=== PATIENT | female | born 1995 | race Caucasian/White ===

== ENCOUNTER 2016-11-15 08:46 | Emergency (ER) | payer MEDICAID ==
[2016-11-15 08:55] VITALS: BP 127/69
[2016-11-15] MEDS ORDERED: Sodium Chloride 0.9% 1,000 ML IV ONE (09:24)
[2016-11-15] MEDS ORDERED: Ondansetron 4 MG/2 ML SDV IVPUSH STA (09:24)
--- NOTE | 2016-11-15 09:27 | EDM.PDOC ---
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 Patient reports that since yesterday morning she has been having rolling in her upper epigastric region of the abdomen. She reports having nausea and vomiting several times. She is currently holding an emesis bag, but has not vomited in the ER at this time. Patient reports that she is currently about 12 weeks and due date of May 28 confirmed by an ultrasound about 3 weeks ago per patient. She reports that she saw Dr Dougherty for her initial OB appointment , but he would like her to be seen in [place] due to her high risk per patient. She reports she has not heard anything from [place] for an upcoming appointment. The patient is G3, P1, A1. She reports in March this year she had a Molar . The patient is alert and oriented. She does not appear to be in any acute distress. She denies stanton, dizziness, d, f, neck pain, neck stiffness, congestion, drainage, cp, soa, pelvic pain, vaginal bleeding, urinary changes, bowel changes. She reports nausea, vomiting, epigastric rolling pain. Onset Date: 11/14/16 Duration: Day(s): (1) Location: Reports: Abdomen Quality: Reports: Other (rolling) Severity: Mild Improves with: Reports: None Worsens with: Reports: None Associated Symptoms: Reports: Nausea/Vomiting. Denies: Confusion, Chest Pain, Cough, cough w sputum, Diaphoresis, Fever/Chills, Headaches, Loss of Appetite, Malaise, Rash, Seizure, Shortness of Breath, Syncope, Weakness Upper Abdomen Pain Score (Numeric/FACES): 8 - Related Data Allergies Allergy/AdvReac Type Severity Reaction Status Date / Time No Known Allergies Allergy Verified 11/15/16 08:55 Home Meds: Home Meds . 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: - Past Surgical History HEENT Surgical History: Reports: None Social & Family History - Family History Family Medical History: Noncontributory - Tobacco Use Smoking Status *Q: Current Every Day Smoker Years of Tobacco use: 10 Packs/Tins Daily: 0.5 Used Tobacco, but Quit: No Second Hand Smoke Exposure: No - Alcohol Use Days Per Week of Alcohol Use: 0 - Recreational Drug Use Recreational Drug Use: No - Living Situation & Occupation Living situation: Reports: Single, with Significant Other ED ROS GENERAL - Review of Systems Review Of Systems: See Below Constitutional: Reports: No Symptoms HEENT: Reports: No Symptoms Respiratory: Reports: No Symptoms Cardiovascular: Reports: No Symptoms Endocrine: Reports: No Symptoms GI/Abdominal: Reports: Abdominal Pain (epigastric), Nausea, Vomiting. Denies: Diarrhea : Reports: No Symptoms Musculoskeletal: Reports: No Symptoms Skin: Reports: No Symptoms Neurological: Reports: No Symptoms Psychiatric: Reports: No Symptoms Hematologic/Lymphatic: Reports: No Symptoms Immunologic: Reports: No Symptoms ED EXAM, GI/ABD - Physical Exam Exam: See Below Exam Limited By: No Limitations General Appearance: Alert, WD/WN, No Apparent Distress Eyes: Bilateral: Normal Appearance Ears: Normal External Exam, Normal Canal, Hearing Grossly Normal, Normal TMs Nose: Normal Inspection, Normal Mucosa, No Blood Throat/Mouth: Normal Inspection, Normal Lips, Normal Teeth, Normal Gums, Normal Oropharynx, Normal Voice, No Airway Compromise Head: Atraumatic, Normocephalic Neck: Normal Inspection, Supple, Non-Tender, Full Range of Motion Respiratory/Chest: No Respiratory Distress, Lungs Clear, Normal Breath Sounds, No Accessory Muscle Use Cardiovascular: Normal Peripheral Pulses, Regular Rate, Rhythm, No Edema, No Gallop, No JVD, No Murmur, No Rub GI/Abdominal Exam: Normal Bowel Sounds, Soft, No Organomegaly, No Distention, No Abnormal Bruit, No Mass, Pelvis Stable, Tender (mild epigastric. ) Back Exam: Normal Inspection, Full Range of Motion. No: CVA Tenderness (L), CVA Tenderness (R) Extremities: Normal Inspection, Normal Range of Motion, Non-Tender, No Pedal Edema, Normal Capillary Refill Neurological: Alert, Oriented, Normal Cognition, Normal Gait, No Motor/Sensory Deficits Psychiatric: Normal Affect, Normal Mood Skin Exam: Warm, Dry, Intact, Normal Color, No Rash Lymphatic: No Adenopathy Course - Vital Signs Last Recorded V/S: Last Vital Signs Temp 96.5 F 11/15/16 08:49 Pulse 83 11/15/16 08:49 Resp 18 11/15/16 08:49 BP 127/69 11/15/16 08:49 Pulse Ox 98 11/15/16 08:49 - Orders/Labs/Meds Orders: Active Orders 24 hr Category Date Time Status Heart Tones [RC] ASDIRECTED Care 11/15/16 09:25 Active Labs: Laboratory Tests 11/15/16 11/15/16 11/15/16 Range/Units 09:21 09:21 09:21 WBC (5.0-10.0) 10^3/uL RBC (4.00-5.50) 10^6/uL Hgb (12.0-16.0) g/dL Hct (37.0-47.0) % MCV (82.0-94.0) fL MCH (27.0-32.0) pg MCHC (33.0-38.0) g/dL RDW Coeff of Kimberlee (11.0-15.0) % Plt Count (150-400) 10^3/uL Neut % (Auto) (35-85) % Lymph % (Auto) (10-55) % [place] % (Auto) (0-16) % Eos % (Auto) (0-5) % Baso % (Auto) (0-3) % Neut # (Auto) (1.80-7.00) 10^3/uL Lymph # (Auto) (1.00-4.80) 10^3/uL [place] # (Auto) (0.00-0.80) 10^3/uL Eos # (Auto) (0.00-0.45) 10^3/uL Baso # (Auto) 10^3/uL Sodium 138 (136-145) mEq/L Potassium 3.9 (3.5-5.0) mEq/L Chloride 103 (98-106) mEq/L Carbon Dioxide 25 (21-32) mmol/L BUN 9 (7-18) mg/dL Creatinine 0.6 (0.6-1.0) mg/dL Est Cr Clr Drug Dosing 160.39 mL/min Estimated GFR (MDRD) > 60 (>=60) mL/min Glucose 89 (75-99) mg/dL Calcium 8.9 (8.4-10.1) mg/dL Total Bilirubin 0.8 (0.0-1.0) mg/dL AST 12 L (15-37) U/L ALT 16 (12-78) U/L Alkaline Phosphatase 57 (46-116) U/L Total Protein 7.2 (6.4-8.2) g/dL Albumin 3.5 (3.4-5.0) g/dL HCG, Qual Positive Urine Color (YELLOW) Urine Appearance (CLEAR) Urine pH (4.5-8.0) Ur Specific [place] (1.003-1.020) Urine Protein (NEGATIVE) mg/dL Urine Glucose (UA) (NEGATIVE) mg/dL Urine Ketones (NEGATIVE) mg/dL Urine Occult Blood (NEGATIVE) Urine Nitrite (NEGATIVE) Urine Bilirubin (NEGATIVE) Urine Urobilinogen (0.2-1.0) EU/dL Ur Leukocyte Esterase (NEGATIVE) Urine RBC (0-5) /HPF Urine WBC (0-5) /HPF Ur Squamous Epith Cells (NOT SEEN) /HPF Urine Bacteria (NOT SEEN) /HPF Urine Mucus (NOT SEEN) /HPF Urine Opiates Screen Negative (NEGATIVE) Ur Oxycodone Screen Negative (NEGATIVE) Urine Methadone Screen Negative (NEGATIVE) Ur Barbiturates Screen Negative (NEGATIVE) U Tricyclic Antidepress Negative (NEGATIVE) Ur Phencyclidine Scrn Negative (NEGATIVE) Ur Amphetamine Screen Negative (NEGATIVE) U Methamphetamines Scrn Negative (NEGATIVE) Urine MDMA Screen Negative (NEGATIVE) U Benzodiazepines Scrn Negative (NEGATIVE) Urine Cocaine Screen Negative (NEGATIVE) U Marijuana (THC) Screen Positive H (NEGATIVE) 11/15/16 11/15/16 Range/Units 09:30 10:25 WBC 10.9 H (5.0-10.0) 10^3/uL RBC 4.54 (4.00-5.50) 10^6/uL Hgb 14.2 (12.0-16.0) g/dL Hct 40.5 (37.0-47.0) % MCV 89.2 (82.0-94.0) fL MCH 31.3 (27.0-32.0) pg MCHC 35.1 (33.0-38.0) g/dL RDW Coeff of Kimberlee 13.0 (11.0-15.0) % Plt Count 220 (150-400) 10^3/uL Neut % (Auto) 84.1 (35-85) % Lymph % (Auto) 11.3 (10-55) % [place] % (Auto) 4.0 (0-16) % Eos % (Auto) 0.5 (0-5) % Baso % (Auto) 0.1 (0-3) % Neut # (Auto) 9.18 H (1.80-7.00) 10^3/uL Lymph # (Auto) 1.24 (1.00-4.80) 10^3/uL [place] # (Auto) 0.44 (0.00-0.80) 10^3/uL Eos # (Auto) 0.06 (0.00-0.45) 10^3/uL Baso # (Auto) 0.01 10^3/uL Sodium (136-145) mEq/L Potassium (3.5-5.0) mEq/L Chloride (98-106) mEq/L Carbon Dioxide (21-32) mmol/L BUN (7-18) mg/dL Creatinine (0.6-1.0) mg/dL Est Cr Clr Drug Dosing mL/min Estimated GFR (MDRD) (>=60) mL/min Glucose (75-99) mg/dL Calcium (8.4-10.1) mg/dL Total Bilirubin (0.0-1.0) mg/dL AST (15-37) U/L ALT (12-78) U/L Alkaline Phosphatase (46-116) U/L Total Protein (6.4-8.2) g/dL Albumin (3.4-5.0) g/dL HCG, Qual Urine Color Dark yellow (YELLOW) Urine Appearance Slightly cloudy (CLEAR) Urine pH 5.5 (4.5-8.0) Ur Specific [place] 1.029 H (1.003-1.020) Urine Protein 30 H (NEGATIVE) mg/dL Urine Glucose (UA) Negative (NEGATIVE) mg/dL Urine Ketones >=160 H (NEGATIVE) mg/dL Urine Occult Blood Trace-intact H (NEGATIVE) Urine Nitrite Negative (NEGATIVE) Urine Bilirubin Small H (NEGATIVE) Urine Urobilinogen 0.2 (0.2-1.0) EU/dL Ur Leukocyte Esterase Negative (NEGATIVE) Urine RBC 0-5 (0-5) /HPF Urine WBC 5-10 H (0-5) /HPF Ur Squamous Epith Cells Moderate H (NOT SEEN) /HPF Urine Bacteria Few H (NOT SEEN) /HPF Urine Mucus Moderate H (NOT SEEN) /HPF Urine Opiates Screen (NEGATIVE) Ur Oxycodone Screen (NEGATIVE) Urine Methadone Screen (NEGATIVE) Ur Barbiturates Screen (NEGATIVE) U Tricyclic Antidepress (NEGATIVE) Ur Phencyclidine Scrn (NEGATIVE) Ur Amphetamine Screen (NEGATIVE) U Methamphetamines Scrn (NEGATIVE) Urine MDMA Screen (NEGATIVE) U Benzodiazepines Scrn (NEGATIVE) Urine Cocaine Screen (NEGATIVE) U Marijuana (THC) Screen (NEGATIVE) Meds: Medications Discontinued Medications Generic Name Dose Route Start Last Admin Trade Name Freq PRN Reason Stop Dose Admin Sodium Chloride 1,000 mls @ 1,000 mls/hr 11/15/16 09:24 11/15/16 09:33 Normal Saline IV 11/15/16 10:23 1,000 mls/hr .BOLUS ONE Administration Ondansetron HCl 4 mg 11/15/16 09:24 11/15/16 09:33 Zofran IVPUSH 11/15/16 09:25 4 mg NOW STA Administration - Re-Assessments/Exams Free Text/Narrative Re-Assessment/Exam: 11/15/16 10:57 FHR 160 easily found by RN. 11/15/16 11:01 No leukocytes in urine to indicate infection. Dehydrated. Patient reports she feels much better. Her abdominal epigastric pain is resolved and her nausea is gone. Departure - Departure Time of Disposition: 10:55 Disposition: Home, Self-Care 01 Condition: Good Clinical Impression: Hyperemesis Qualifiers: Vomiting type: unspecified Nausea presence: with nausea Qualified Code(s): R11.2 - Nausea with vomiting, unspecified - Discharge Information Instructions: Hyperemesis Gravidarum, Eating Plan for Hyperemesis Gravidarum Referrals: Klaus Dougherty MD [Primary Care Provider] - Forms: ED Department Discharge Additional Instructions: Followup with your primary care provider Followup with your new RETAIL SALESMAN on FridayNovember 25 at 2:30pm at [facility] with Dr. Cabrera Return to the ER for worsening of condition or any emergent concerns Increase fluids Zofran 4mg 1 pill every 4 hours as needed for nausea/vomiting #28 no refill ODT. - My Orders Last 24 Hours: My Active Orders 11/15/16 09:25 Heart Tones [RC] ASDIRECTED - Assessment/Plan Last 24 Hours: My Active Orders 11/15/16 09:25 Heart Tones [RC] ASDIRECTED Plan: PLEASE SEE RN NOTE FOR PFSH.
[2016-11-15 10:02] LABS: CHLORIDE,CL 103 mEq/L (98-106); SODIUM,NA 138 mEq/L (136-145)
== END 2016-11-15 11:11 | disposition home or self-care (01) ==
LOC: CC.ED 08:46
DX: O21.0 Mild hyperemesis gravidarum (principal); O99.331 Smoking (tobacco) complicating pregnancy, first trimester; F17.210 Nicotine dependence, cigarettes, uncomplicated; O99.281 Endocrine, nutritional and metabolic diseases complicating pregnancy, first trimester; E86.0 Dehydration; Z3A.12 12 weeks gestation of pregnancy
CPT/HCPCS: 36415; 80053; 80305; 81001; 84703; 85025; 96361; 96374; 99283; J2405; J7030

== ENCOUNTER 2016-11-22 01:44 | Emergency (ER) | payer MEDICAID ==
[2016-11-22 01:48] VITALS: BP 134/76
--- NOTE | 2016-11-22 02:17 | EDM.PDOC ---
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 States did have intercourse tonight and since has had bleeding. Passed 2 large clots. One appeared to have mucous and/ or tissue. She denies any cramping. She had a D & C a few months ago and on her recheck appointment found out she was . She is now 13 1/2 weeks and other than nausea/vomiting, has been doing well. She denies feeling lightheaded. Onset: Today, Sudden Duration: Minutes: Associated Symptoms: Reports: Other. 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: - Past Surgical History HEENT Surgical History: Reports: None Social & Family History - Family History Family Medical History: Noncontributory - Tobacco Use Smoking Status *Q: Current Every Day Smoker Years of Tobacco use: 4 Packs/Tins Daily: 0.7 Used Tobacco, but Quit: No Second Hand Smoke Exposure: No - Caffeine Use Caffeine Use: Reports: Coffee - Alcohol Use Days Per Week of Alcohol Use: 0 - Recreational Drug Use Recreational Drug Use: No - Living Situation & Occupation Living situation: Reports: Single, with Significant Other ED ROS GENERAL - Review of Systems Review Of Systems: See Below Constitutional: Denies: Malaise, Weakness HEENT: Reports: No Symptoms Respiratory: Denies: Shortness of Breath, Wheezing, Cough Cardiovascular: Denies: Chest Pain, Edema, Lightheadedness Endocrine: Reports: Fatigue GI/Abdominal: Reports: No Symptoms : Reports: Other (vaginal bleeding) Musculoskeletal: Reports: No Symptoms Skin: Reports: No Symptoms Neurological: Reports: No Symptoms Psychiatric: Reports: No Symptoms ED EXAM - Physical Exam Exam: See Below Exam Limited By: No Limitations General Appearance: Alert, WD/WN, No Apparent Distress Ears: Normal External Exam, Normal TMs Nose: Normal Inspection, Normal Mucosa, No Blood Throat/Mouth: Normal Inspection, Normal Oropharynx Head: Normocephalic Neck: Normal Inspection, Supple, Non-Tender Respiratory/Chest: No Respiratory Distress, Lungs Clear, Normal Breath Sounds Cardiovascular: Regular Rate, Rhythm GI/Abdominal Exam: Normal Bowel Sounds (Female) Exam: Vaginal Bleeding, Other Heart Tones: Present Heart Tones per Min: 170 Back Exam: Normal Inspection Neurological: Alert, Oriented Course - Vital Signs Last Recorded V/S: Last Vital Signs Temp 98.2 F 11/22/16 01:46 Pulse 101 H 11/22/16 01:46 Resp 16 11/22/16 01:46 BP 134/76 11/22/16 01:46 Pulse Ox 99 11/22/16 01:46 Departure - Departure Time of Disposition: 02:16 Disposition: Home, Self-Care 01 Clinical Impression: Vaginal bleeding before 22 weeks gestation - Discharge Information Referrals: Klaus Dougherty MD [Primary Care Provider] - Forms: ED Department Discharge Additional Instructions: 1. Pelvic rest 2. Push fluids 3. Return in am for ultrasound
== END 2016-11-22 02:25 | disposition home or self-care (01) ==
LOC: CC.ED 01:44
DX: O46.91 Antepartum hemorrhage, unspecified, first trimester (principal); O99.331 Smoking (tobacco) complicating pregnancy, first trimester; F17.210 Nicotine dependence, cigarettes, uncomplicated; Z3A.13 13 weeks gestation of pregnancy
CPT/HCPCS: 76801; 99283

== ENCOUNTER 2016-12-09 11:56 | Emergency (ER) | payer MEDICAID ==
[2016-12-09 12:06] VITALS: BP 137/76
[2016-12-09] MEDS ORDERED: Ondansetron 4 MG/2 ML SDV IVPUSH ONE (12:14)
[2016-12-09] MEDS ORDERED: Lactated Ringers 1,000 ML IV SCH (12:15)
[2016-12-09 12:44] LABS: CHLORIDE,CL 105 mEq/L (98-106); SODIUM,NA 140 mEq/L (136-145)
--- NOTE | 2016-12-09 13:01 | EDM.PDOC ---
ED HPI GENERAL MEDICAL PROBLEM - General Chief Complaint: Gastrointestinal Problem Stated Complaint: N/V, epigastric pain (16 wks ) Time Seen by Provider: 12/09/16 12:35 Source of Information: Reports: Patient History Limitations: Reports: No Limitations - History of Present Illness INITIAL COMMENTS - FREE TEXT/NARRATIVE: Lori is a 21 yo female who presents to the ER with complaints of nausea and dry heaving. Admits she is 16 weeks with first OB appointment with Dr. Cabrera in [place] on . States she has been nauseated during her entire but starting yesterday morning she started dry heaving and unable to keep any fluids down. States she has been in the ER 3 times now for the same symptoms with this . States she has had 2 ultrasounds , last being November 22 with no complications at that time. States she has been told she has ulcers in the past as well and continues having epigastric pain. Patient had a molar in May and underwent D&C at that time. Denies any vaginal bleeding. States she hasn't been running any fevers or chills. G3, P1, A1. Onset Date: 12/08/16 Duration: Getting Worse Location: Reports: Abdomen, Generalized Middle Epigastric Pain Score (Numeric/FACES): 9 - Related Data Allergies Allergy/AdvReac Type Severity Reaction Status Date / Time No Known Allergies Allergy Verified 12/09/16 12:06 Home Meds: Home Meds . 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: - Past Surgical History HEENT Surgical History: Reports: None Social & Family History - Family History Family Medical History: Noncontributory - Tobacco Use Smoking Status *Q: Current Every Day Smoker Years of Tobacco use: 4 Packs/Tins Daily: 0.5 Used Tobacco, but Quit: No Second Hand Smoke Exposure: No - Caffeine Use Caffeine Use: Reports: Coffee - Alcohol Use Days Per Week of Alcohol Use: 0 - Recreational Drug Use Recreational Drug Use: No - Living Situation & Occupation Living situation: Reports: Single, with Significant Other ED ROS GENERAL - Review of Systems Review Of Systems: See Below Constitutional: Reports: Decreased Appetite. Denies: Fever, Chills HEENT: Reports: No Symptoms Respiratory: Reports: No Symptoms Cardiovascular: Reports: No Symptoms GI/Abdominal: Reports: Abdominal Pain (epigastric), Decreased Appetite, Nausea, Vomiting. Denies: Bloody Stool, Constipation, Diarrhea : Reports: No Symptoms Musculoskeletal: Reports: No Symptoms Skin: Reports: No Symptoms Neurological: Reports: No Symptoms ED EXAM, GI/ABD - Physical Exam Exam: See Below Exam Limited By: No Limitations General Appearance: No Apparent Distress, Lethargic. No: Active Emesis Eyes: Bilateral: Normal Appearance Ears: Normal External Exam, Normal Canal, Hearing Grossly Normal, Normal TMs Nose: Normal Inspection, Normal Mucosa, No Blood Throat/Mouth: Normal Inspection, Normal Lips, Normal Teeth, Normal Gums, Normal Oropharynx, Normal Voice, No Airway Compromise Head: Atraumatic, Normocephalic Neck: Normal Inspection, Supple Respiratory/Chest: No Respiratory Distress, Lungs Clear, Normal Breath Sounds, No Accessory Muscle Use Cardiovascular: Regular Rate, Rhythm, No Murmur GI/Abdominal Exam: Normal Bowel Sounds, Soft, No Organomegaly, No Mass, Tender ( mid to left epigastric area). No: Guarding, Rigid Extremities: Normal Inspection, No Pedal Edema Neurological: Alert, Oriented, Normal Cognition, No Motor/Sensory Deficits Psychiatric: Normal Affect, Normal Mood Skin Exam: Warm, Dry, Intact, Normal Color, No Rash Course - Vital Signs Last Recorded V/S: Last Vital Signs Temp 98.8 F 12/09/16 12:02 Pulse 72 12/09/16 12:02 Resp 20 12/09/16 12:02 BP 137/76 12/09/16 12:02 Pulse Ox 99 12/09/16 12:02 - Orders/Labs/Meds Orders: Active Orders 24 hr Category Date Time Status Lactated Ringers [Ringers, Lactated] 1,000 ml Med 12/09/16 12:15 Active IV ASDIRECTED Medication Orders Lactated Ringer's (Ringers, Lactated) 1,000 mls @ 250 mls/hr IV ASDIRECTED KADE Last Admin: 12/09/16 13:33 Dose: 250 mls/hr Labs: Laboratory Tests 12/09/16 12/09/16 12/09/16 Range/Units 12:25 12:25 14:30 WBC 10.5 H (5.0-10.0) 10^3/uL RBC 4.35 (4.00-5.50) 10^6/uL Hgb 13.8 (12.0-16.0) g/dL Hct 39.2 (37.0-47.0) % MCV 90.1 (82.0-94.0) fL MCH 31.7 (27.0-32.0) pg MCHC 35.2 (33.0-38.0) g/dL RDW Coeff of Kimberlee 13.0 (11.0-15.0) % Plt Count 203 (150-400) 10^3/uL Neut % (Auto) 80.1 (35-85) % Lymph % (Auto) 14.7 (10-55) % [place] % (Auto) 4.1 (0-16) % Eos % (Auto) 1.0 (0-5) % Baso % (Auto) 0.1 (0-3) % Neut # (Auto) 8.39 H (1.80-7.00) 10^3/uL Lymph # (Auto) 1.54 (1.00-4.80) 10^3/uL [place] # (Auto) 0.43 (0.00-0.80) 10^3/uL Eos # (Auto) 0.11 (0.00-0.45) 10^3/uL Baso # (Auto) 0.01 10^3/uL Sodium 140 (136-145) mEq/L Potassium 4.0 (3.5-5.0) mEq/L Chloride 105 (98-106) mEq/L Carbon Dioxide 26 (21-32) mmol/L BUN 7 (7-18) mg/dL Creatinine 0.6 (0.6-1.0) mg/dL Est Cr Clr Drug Dosing TNP Estimated GFR (MDRD) > 60 (>=60) mL/min Glucose 81 (75-99) mg/dL Calcium 9.2 (8.4-10.1) mg/dL Total Bilirubin 0.6 (0.0-1.0) mg/dL AST 12 L (15-37) U/L ALT 16 (12-78) U/L Alkaline Phosphatase 67 (46-116) U/L C-Reactive Protein 1.5 H (0.2-0.8) mg/dL Total Protein 7.0 (6.4-8.2) g/dL Albumin 3.3 L (3.4-5.0) g/dL Amylase 28 (25-115) U/L Urine Color Yellow (YELLOW) Urine Appearance Cloudy (CLEAR) Urine pH 7.5 (4.5-8.0) Ur Specific [place] 1.020 (1.003-1.020) Urine Protein Negative (NEGATIVE) mg/dL Urine Glucose (UA) Negative (NEGATIVE) mg/dL Urine Ketones 15 H (NEGATIVE) mg/dL Urine Occult Blood Negative (NEGATIVE) Urine Nitrite Negative (NEGATIVE) Urine Bilirubin Negative (NEGATIVE) Urine Urobilinogen 0.2 (0.2-1.0) EU/dL Ur Leukocyte Esterase Negative (NEGATIVE) Urine RBC Not seen (0-5) /HPF Urine WBC Not seen (0-5) /HPF Ur Squamous Epith Cells Few H (NOT SEEN) /HPF Amorphous Sediment Moderate H (NOT SEEN) /HPF Meds: Medications Generic Name Dose Route Start Last Admin Trade Name Freq PRN Reason Stop Dose Admin Lactated Ringer's 1,000 mls @ 250 mls/hr 12/09/16 12:15 12/09/16 13:33 Ringers, Lactated IV 250 mls/hr ASDIRECTED KADE Administration Discontinued Medications Generic Name Dose Route Start Last Admin Trade Name Freq PRN Reason Stop Dose Admin Acetaminophen 650 mg 12/09/16 15:27 12/09/16 15:32 Tylenol PO 12/09/16 15:28 650 mg NOW ONE Administration Ondansetron HCl 4 mg 12/09/16 12:14 12/09/16 13:30 Zofran IVPUSH 12/09/16 12:15 4 mg ONETIME ONE Administration - Re-Assessments/Exams Free Text/Narrative Re-Assessment/Exam: 12/09/16 13:04 IV fluids initiated with Zofran IV for nausea. Will monitor while receiving fluids. Heart tones to be done. Departure - Departure Time of Disposition: 16:42 Disposition: Home, Self-Care 01 Condition: Good Clinical Impression: Nausea and vomiting during , Epigastric discomfort - Discharge Information Instructions: Dehydration, Adult, [id number], Nausea and Vomiting, Adult, [id number] Referrals: Klaus Dougherty MD [Primary Care Provider] - Forms: ED Department Discharge Additional Instructions: 1) Promethazine topical called into pharmacy, use as directed 2) Push fluids 3) Go to Dr. Appointment with Dr. Vines on Friday 4) If any worsening of symptoms or any new onset of symptoms, return to ER. - Problem List & Annotations (1) Epigastric discomfort SNOMED Code(s): 666818466 Code(s): R10.13 - EPIGASTRIC PAIN Status: Acute Current Visit: Yes (2) Nausea and vomiting during SNOMED Code(s): 57005875 Code(s): O21.9 - VOMITING OF , UNSPECIFIED Status: Acute Current Visit: Yes - Problem List Review Problem List Initiated/Reviewed/Updated: Yes - My Orders Last 24 Hours: My Active Orders 12/09/16 12:15 Lactated Ringers [Ringers, Lactated] 1,000 ml IV ASDIRECTED - Assessment/Plan Last 24 Hours: My Active Orders 12/09/16 12:15 Lactated Ringers [Ringers, Lactated] 1,000 ml IV ASDIRECTED Plan: Will discharge home at this time. Promethazine topical prescribed for nausea. Will follow up with OB on Friday at initial OB appointment. Nursing staff noted heart tones were present. Lori had no episodes of emesis during her time in the ER. Pain has subsided as well.
[2016-12-09] MEDS ORDERED: Acetaminophen 325 MG Tab PO ONE (15:27)
== END 2016-12-09 17:30 | disposition home or self-care (01) ==
LOC: CC.ED 11:56
DX: O21.9 Vomiting of pregnancy, unspecified (principal); O99.89 Other specified diseases and conditions complicating pregnancy, childbirth and the puerperium; R10.13 Epigastric pain; O99.332 Smoking (tobacco) complicating pregnancy, second trimester; F17.210 Nicotine dependence, cigarettes, uncomplicated; Z3A.16 16 weeks gestation of pregnancy
CPT/HCPCS: 36415; 80053; 81001; 82150; 85025; 86140; 96361; 96374; 99284; A9270; J2405; J7120

== ENCOUNTER 2016-12-15 11:13 | Emergency (ER) | payer MEDICAID ==
[2016-12-15] MEDS ORDERED: Ondansetron 4 MG Tab.DIS PO ONE (11:14)
[2016-12-15 11:22] VITALS: BP 126/78
[2016-12-15] MEDS ORDERED: Sodium Chloride 0.9% 1,000 ML IV ONE (11:27)
[2016-12-15] MEDS ORDERED: Ondansetron 4 MG/2 ML SDV IVPUSH STA (11:27)
[2016-12-15] MEDS ORDERED: Lidocaine 2% Viscous Solution 15 ML Cup PO ONE (11:28)
[2016-12-15] MEDS ORDERED: Aluminum Hydroxide/Magnesium Hydroxide/Simethicone Susp 30 ML Cup PO ONE (11:28)
--- NOTE | 2016-12-15 12:18 | EDM.PDOC ---
ED HPI GENERAL MEDICAL PROBLEM - General Chief Complaint: Abdominal Pain Stated Complaint: nausea, abdominal pain, 17wks Time Seen by Provider: 12/15/16 11:27 Source of Information: Reports: Patient History Limitations: Reports: No Limitations - History of Present Illness INITIAL COMMENTS - FREE TEXT/NARRATIVE: This patient is a pleasant 21 year old female that is 17 weeks . She reports that she has a history of hyperemesis. Patient reports that she woke this morning with burning in epigastric area with vomiting and nausea. Patient denies stanton, dizziness, d, f, cough, congestion, drainage, chest pain, shortness of breath, abd pain, pelvic katelynn, vaginal bleeding. Onset: Today Onset Date: 12/15/16 Duration: Hour(s): (5) Quality: Reports: Burning Severity: Moderate Improves with: Reports: None Worsens with: Reports: None Associated Symptoms: Reports: Loss of Appetite, Nausea/Vomiting. 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 Surgical History HEENT Surgical History: Reports: None Social & Family History - Family History Family Medical History: Noncontributory - Tobacco Use Smoking Status *Q: Current Every Day Smoker Years of Tobacco use: 4 Packs/Tins Daily: 0.5 Used Tobacco, but Quit: No Second Hand Smoke Exposure: No - Caffeine Use Caffeine Use: Reports: Coffee - Alcohol Use Days Per Week of Alcohol Use: 0 - Recreational Drug Use Recreational Drug Use: No - Living Situation & Occupation Living situation: Reports: Single, with Significant Other ED ROS GENERAL - Review of Systems Review Of Systems: See Below Constitutional: Reports: No Symptoms HEENT: Reports: No Symptoms Respiratory: Reports: No Symptoms Cardiovascular: Reports: No Symptoms Endocrine: Reports: No Symptoms GI/Abdominal: Reports: Nausea, Vomiting, Other (burning sensation epigastric ) : Reports: No Symptoms Musculoskeletal: Reports: No Symptoms Skin: Reports: No Symptoms Neurological: Reports: No Symptoms Psychiatric: Reports: No Symptoms Hematologic/Lymphatic: Reports: No Symptoms Immunologic: Reports: No Symptoms ED EXAM, GI/ABD - Physical Exam Exam: See Below Exam Limited By: No Limitations General Appearance: Alert, WD/WN, No Apparent Distress Eyes: Bilateral: Normal Appearance Ears: Normal External Exam, Normal Canal, Hearing Grossly Normal, Normal TMs Nose: Normal Inspection, Normal Mucosa, No Blood Throat/Mouth: Normal Inspection, Normal Lips, Normal Teeth, Normal Gums, Normal Oropharynx, Normal Voice, No Airway Compromise Head: Atraumatic, Normocephalic Neck: Normal Inspection, Supple, Non-Tender, Full Range of Motion Respiratory/Chest: No Respiratory Distress, Lungs Clear, Normal Breath Sounds, No Accessory Muscle Use Cardiovascular: Normal Peripheral Pulses, Regular Rate, Rhythm, No Edema, No Gallop, No JVD, No Murmur, No Rub GI/Abdominal Exam: Normal Bowel Sounds, Soft, Non-Tender, No Organomegaly, No Distention, No Abnormal Bruit, No Mass, Pelvis Stable, Other ( abdomen) Back Exam: Normal Inspection, Full Range of Motion. No: CVA Tenderness (L), CVA Tenderness (R) Extremities: Normal Inspection, Normal Range of Motion, Non-Tender, No Pedal Edema, Normal Capillary Refill Neurological: Alert, Oriented Psychiatric: Normal Affect, Normal Mood Skin Exam: Warm, Dry, Intact, Normal Color, No Rash Lymphatic: No Adenopathy Course - Vital Signs Last Recorded V/S: Last Vital Signs Temp 96.7 F 12/15/16 11:15 Pulse 85 12/15/16 11:15 Resp 18 12/15/16 11:15 BP 126/78 12/15/16 11:15 Pulse Ox 100 12/15/16 11:15 - Orders/Labs/Meds Orders: Active Orders 24 hr Category Date Time Status Heart Tones [RC] ASDIRECTED Care 12/15/16 11:38 Active OB Ltd 1 or More Fetus [US] Stat Exams 12/15/16 12:24 Taken Labs: Laboratory Tests 12/15/16 Range/Units 11:44 Urine Color Yellow (YELLOW) Urine Appearance Clear (CLEAR) Urine pH 7.5 (4.5-8.0) Ur Specific [place] 1.020 (1.003-1.020) Urine Protein Trace H (NEGATIVE) mg/dL Urine Glucose (UA) Negative (NEGATIVE) mg/dL Urine Ketones Negative (NEGATIVE) mg/dL Urine Occult Blood Negative (NEGATIVE) Urine Nitrite Negative (NEGATIVE) Urine Bilirubin Negative (NEGATIVE) Urine Urobilinogen 0.2 (0.2-1.0) EU/dL Ur Leukocyte Esterase Trace H (NEGATIVE) Urine RBC Not seen (0-5) /HPF Urine WBC 0-5 (0-5) /HPF Ur Squamous Epith Cells Many H (NOT SEEN) /HPF Amorphous Sediment Many H (NOT SEEN) /HPF Urine Bacteria Occasional H (NOT SEEN) /HPF Meds: Medications Discontinued Medications Generic Name Dose Route Start Last Admin Trade Name Freq PRN Reason Stop Dose Admin Al Hydroxide/Mg Hydroxide 30 ml 12/15/16 11:28 12/15/16 12:09 Mag-Al Plus PO 12/15/16 11:29 30 ml ONETIME ONE Administration Sodium Chloride 1,000 mls @ 1,000 mls/hr 12/15/16 11:27 12/15/16 11:50 Normal Saline IV 12/15/16 12:26 1,000 mls/hr .BOLUS ONE Administration Lidocaine HCl 15 ml 12/15/16 11:28 12/15/16 12:09 Xylocaine 2% Viscous PO 12/15/16 11:29 15 ml ONETIME ONE Administration Ondansetron HCl 4 mg 12/15/16 11:27 12/15/16 11:53 Zofran IVPUSH 12/15/16 11:28 4 mg NOW STA Administration Ondansetron HCl 3 packet 12/15/16 12:22 12/15/16 13:05 Take Home: Ondansetron Odt 4 Mg, 2 Tab Pack PO 12/15/16 12:23 3 packet ONETIME ONE Administration - Radiology Interpretation Free Text/Narrative:: US to obtain FHR. Sherrell villafana performed. 163 HR. Baby breach, no complications . CT Results Date: 12/15/16 CT Results Time: 12:47 - Re-Assessments/Exams Free Text/Narrative Re-Assessment/Exam: 12/15/16 12:22 Patient reports her nausea is completely resolved. She says her burning is still present, but much improved. She reports she feels like she could eat. I will discharge patient. She should followup with her PCP for possible acid reflux medications. 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 - My Orders Last 24 Hours: My Active Orders 12/15/16 11:38 Heart Tones [RC] ASDIRECTED 12/15/16 12:24 OB Ltd 1 or More Fetus [US] Stat - Assessment/Plan Last 24 Hours: My Active Orders 12/15/16 11:38 Heart Tones [RC] ASDIRECTED 12/15/16 12:24 OB Ltd 1 or More Fetus [US] Stat Plan: PLEASE SEE RN NOTE FOR PFSH.
[2016-12-15] MEDS ORDERED: Take Home: Ondansetron 4 MG Tab.DIS, 2 Tab Pack PO ONE (12:22)
== END 2016-12-15 13:05 | disposition home or self-care (01) ==
LOC: CC.ED 11:13
DX: O99.612 Diseases of the digestive system complicating pregnancy, second trimester (principal); O99.332 Smoking (tobacco) complicating pregnancy, second trimester; F17.210 Nicotine dependence, cigarettes, uncomplicated
CPT/HCPCS: 76815; 81001; 96361; 96374; 99284; A9270; J2405; J7030

== ENCOUNTER 2017-05-04 09:40 | Emergency (ER) | payer MEDICAID ==
[2017-05-04 10:07] VITALS: BP 148/70
--- NOTE | 2017-05-04 10:48 | EDM.PDOC ---
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 She reports she has had intermittent pelvic pain throughout her whole , but last night into today it has gotten much worse. She reports the pain kept her up last night. She does also have some back pain and feels like she has had "little" contractions that wrap around her abdomen. She denies any fluid leaking or vaginal bleeding. Reports she has had a healthy . She has [place] Cab[place] [facility] [place] She reports at her OB check last week she was dilated to a two. She reports she called OB in [place] and they recommended she stop here first to be sure she didn't have a UTI. Does report she delivered her last at 38 weeks. She has been feeling baby move. Baby has been active. FHTs 125. 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 Pelvic Pain Score (Numeric/FACES): 8 - Related Data Allergies Allergy/AdvReac Type Severity Reaction Status Date / Time No Known Allergies Allergy Verified 05/04/17 09:54 Home Meds: Home Meds PNV95/Ferrous Fumarate/FA [ Tablet] 1 tab PO DAILY 05/04/17 [History] Past Medical History - Past Health History Medical/Surgical History: Denies Medical/Surgical History HEENT History: Reports: Impaired Vision Gastrointestinal History: Reports: GERD, PUD 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: - Past Surgical History HEENT Surgical History: Reports: None Social & Family History - Family History Family Medical History: Noncontributory - Tobacco Use Smoking Status *Q: Current Every Day Smoker Years of Tobacco use: 7 Packs/Tins Daily: 0.5 Used Tobacco, but Quit: No Second Hand Smoke Exposure: No - Caffeine Use Caffeine Use: Reports: Coffee - Alcohol Use Days Per Week of Alcohol Use: 0 - Recreational Drug Use Recreational Drug Use: No - Living Situation & Occupation Living situation: Reports: Single, with Significant Other ED ROS GENERAL - Review of Systems Review Of Systems: ROS reveals no pertinent complaints other than HPI. Constitutional: Reports: No Symptoms. Denies: Fever, Chills, Weakness, Fatigue Respiratory: Reports: No Symptoms Cardiovascular: Reports: No Symptoms GI/Abdominal: Denies: Abdominal Pain, Diarrhea, Nausea, Vomiting : Reports: Frequency. Denies: Dysuria, Urgency Musculoskeletal: Reports: Back Pain Neurological: Reports: No Symptoms ED EXAM - Physical Exam Exam: See Below Exam Limited By: No Limitations General Appearance: Alert, WD/WN, No Apparent Distress Head: Atraumatic, Normocephalic Neck: Normal Inspection, Supple, Non-Tender, Full Range of Motion Respiratory/Chest: No Respiratory Distress, Lungs Clear, Normal Breath Sounds, No Accessory Muscle Use, Chest Non-Tender Cardiovascular: Normal Peripheral Pulses, Regular Rate, Rhythm, No Edema, No Gallop, No JVD, No Murmur, No Rub GI/Abdominal Exam: Normal Bowel Sounds, Non-Tender, Pelvis Stable, Other (Gravid ) (Female) Exam: Normal External Exam, Cervical Dilatation (3-4), Cervical Discharge, Enlarged Uterus, Vaginal Discharge. No: Uterine Tenderness Heart Tones: Present Heart Tones per Min: 125 Movement: Active Back Exam: Normal Inspection, Full Range of Motion. No: CVA Tenderness (L), CVA Tenderness (R) Extremities: Normal Inspection, Normal Range of Motion, Non-Tender, Normal Capillary Refill, No Pedal Edema Neurological: Alert, Oriented, CN II-XII Intact, Normal Cognition, Normal Gait, Normal Reflexes, No Motor/Sensory Deficits Psychiatric: Normal Affect, Normal Mood Course - Vital Signs Last Recorded V/S: Last Vital Signs Temp 96.2 F 05/04/17 09:50 Pulse 111 H 05/04/17 09:50 Resp 16 05/04/17 09:50 BP 148/70 H 05/04/17 10:06 Pulse Ox 98 05/04/17 09:50 - Orders/Labs/Meds Labs: Laboratory Tests 05/04/17 Range/Units 10:10 Urine Color Yellow (YELLOW) Urine Appearance Clear (CLEAR) Urine pH 7.5 (4.5-8.0) Ur Specific [place] 1.015 (1.003-1.020) Urine Protein Negative (NEGATIVE) mg/dL Urine Glucose (UA) Negative (NEGATIVE) mg/dL Urine Ketones Negative (NEGATIVE) mg/dL Urine Occult Blood Negative (NEGATIVE) Urine Nitrite Negative (NEGATIVE) Urine Bilirubin Negative (NEGATIVE) Urine Urobilinogen 0.2 (0.2-1.0) EU/dL Ur Leukocyte Esterase Trace H (NEGATIVE) Urine RBC Not seen (0-5) /HPF Urine WBC 0-5 (0-5) /HPF Ur Epithelial Cells Few H (NOT SEEN) /HPF Urine Bacteria Occasional H (NOT SEEN) /HPF - Re-Assessments/Exams Free Text/Narrative Re-Assessment/Exam: Discussed UA results with patient. UA negative. Cervix dilated to 3-4. She is stable. Not currently in active labor. She will be discharged from our facility. I do not feel there is emergent need for visit. I would recommend that since we do not have capability to do any monitoring, that she go to OB floor at [place] for monitoring. Discussed with OB nurse that patient would be coming for monitoring. They told her to come to OB floor and they would hook her up to the monitor. Patient voiced understanding and was agreeable with plan. Departure - Departure Time of Disposition: 10:49 Disposition: Home, Self-Care 01 Condition: Good Clinical Impression: Pain in pelvis Qualifiers: Weeks of gestation: 37 weeks Qualified Code(s): Z3A.37 - 37 weeks gestation of - Discharge Information Instructions: Pelvic Pain, Female Referrals: Klaus Dougherty MD [Primary Care Provider] - Forms: ED Department Discharge Additional Instructions: Recommend going to [place] for monitoring UA negative for acute UTI Follow up with OBGYN as scheduled
== END 2017-05-04 10:56 | disposition home or self-care (01) ==
LOC: CC.ED 09:40
DX: O99.89 Other specified diseases and conditions complicating pregnancy, childbirth and the puerperium (principal); R10.2 Pelvic and perineal pain; F17.210 Nicotine dependence, cigarettes, uncomplicated; Z3A.37 37 weeks gestation of pregnancy
CPT/HCPCS: 81001; 99284

== ENCOUNTER 2019-04-23 12:02 | Emergency (ER) | payer MEDICAID ==
[2019-04-23 12:13] VITALS: BP 142/80; PULSE 82
[2019-04-23] MEDS ORDERED: Ketorolac 60 MG/2 ML SDV IM ONE (12:44)
[2019-04-23] MEDS ORDERED: Promethazine 25 MG/ML SDV IM ONE (12:46)
--- NOTE | 2019-04-23 14:13 | EDM.PDOC ---
ED HPI GENERAL MEDICAL PROBLEM - General Chief Complaint: General Stated Complaint: MIGRAINE Time Seen by Provider: 04/23/19 12:35 Source of Information: Reports: Patient History Limitations: Reports: No Limitations - History of Present Illness INITIAL COMMENTS - FREE TEXT/NARRATIVE: Patient presents to ER with complaints of a severe headache. She states she awoke with it at 0300. No recent head trauma. Has had upper respiratory symptoms for a few days, took Nyquil last night. Has had headaches in the past but never to this severity or one that has been unrelieved with tylenol or ibuprofen. Took ibuprofen earlier without any relief. STates hurts to the whole top of her head. Has light and sound sensitivity. Nausea and vomiting. No diagnosed history of migraines. Headache similar to what she has experienced before however. No fevers. No ear pain or sore throat. No cough or shortness of breath. Onset: Today, Sudden Duration: Hour(s):, Constant Location: Reports: Head Quality: Reports: Sharp, Throbbing Severity: Severe Improves with: Reports: None Associated Symptoms: Reports: Headaches, Nausea/Vomiting. 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 Headache Pain Score (Numeric/FACES): 10 - Related Data Allergies Allergy/AdvReac Type Severity Reaction Status Date / Time No Known Allergies Allergy Verified 04/23/19 12:17 Home Meds: Home Meds Acetaminophen [Tylenol] 325 mg PO Q4H PRN 04/23/19 [History] Ibuprofen 200 mg PO ASDIRECTED PRN 04/23/19 [History] Ketorolac [Toradol] 10 mg PO Q6H PRN #10 tab 04/23/19 [Rx] Past Medical History - Past Health History Medical/Surgical History: Denies Medical/Surgical History HEENT History: Reports: Impaired Vision Gastrointestinal History: Reports: 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, 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: Neurological History: Reports: Headaches, Chronic - Past Surgical History HEENT Surgical History: Reports: None Social & Family History - Family History Family Medical History: Noncontributory - Tobacco Use Smoking Status *Q: Current Every Day Smoker Years of Tobacco use: 8 Packs/Tins Daily: 1 - Caffeine Use Caffeine Use: Reports: Coffee, Soda - Recreational Drug Use Recreational Drug Use: No - Living Situation & Occupation Living situation: Reports: Single, with Significant Other ED ROS GENERAL - Review of Systems Review Of Systems: See Below Constitutional: Denies: Fever, Chills, Malaise, Weakness, Decreased Appetite HEENT: Denies: Ear Pain, Sinus Problem, Throat Pain, Vertigo Respiratory: Denies: Shortness of Breath, Cough Cardiovascular: Denies: Chest Pain, Edema, Lightheadedness Endocrine: Denies: Fatigue GI/Abdominal: Denies: Abdominal Pain, Nausea, Vomiting : Reports: No Symptoms Musculoskeletal: Reports: No Symptoms Skin: Reports: No Symptoms Neurological: Reports: Headache ED EXAM, GENERAL - Physical Exam Exam: See Below Exam Limited By: No Limitations General Appearance: Alert, WD/WN, Moderate Distress Eye Exam: Bilateral Eye: EOMI, PERRL Ears: Normal External Exam, Normal TMs Nose: Normal Inspection, Normal Mucosa, No Blood Throat/Mouth: Normal Inspection, Normal Oropharynx Head: Normocephalic Neck: Normal Inspection, Supple, Non-Tender Respiratory/Chest: No Respiratory Distress, Lungs Clear, Normal Breath Sounds Cardiovascular: Regular Rate, Rhythm GI/Abdominal: Normal Bowel Sounds, Soft, Non-Tender Extremities: Normal Inspection, No Pedal Edema Neurological: Alert, Oriented, CN II-XII Intact, Normal Cognition, Normal Gait, Normal Reflexes, No Motor/Sensory Deficits Skin Exam: Warm, Dry Course - Vital Signs Last Recorded V/S: Last Vital Signs Temp 98.3 F 04/23/19 12:10 Pulse 82 04/23/19 12:10 Resp 18 04/23/19 12:10 BP 142/80 H 04/23/19 12:10 Pulse Ox 99 04/23/19 12:10 - Orders/Labs/Meds Meds: Medications Discontinued Medications Generic Name Dose Route Start Last Admin Trade Name Freq PRN Reason Stop Dose Admin Ketorolac Tromethamine 60 mg 04/23/19 12:44 04/23/19 12:51 Toradol IM 04/23/19 12:45 60 mg ONETIME ONE Administration Promethazine HCl 25 mg 04/23/19 12:46 04/23/19 12:51 Phenergan IM 04/23/19 12:47 25 mg NOW ONE Administration - Re-Assessments/Exams Free Text/Narrative Re-Assessment/Exam: CT scan of head was done, negative. Toradol and phenergan given. Headache improving after. Departure - Departure Time of Disposition: 14:12 Disposition: Home, Self-Care 01 Clinical Impression: Migraine - Discharge Information *PRESCRIPTION DRUG MONITORING PROGRAM REVIEWED*: No *COPY OF PRESCRIPTION DRUG MONITORING REPORT IN PATIENT RACIEL: No Prescriptions: Ketorolac [Toradol] 10 mg PO Q6H PRN #10 tab PRN Reason: Headache Referrals: PCP,Unknown [Primary Care Provider] - Forms: ED Department Discharge Additional Instructions: 1. Push fluids 2. Rest 3. Tylenol or ibuprofen for usual headache, may use Toradol 10 mg every hours as needed if no relief 4. Follow up if any concerns or persisting headache Sepsis Event Note - Evaluation Sepsis Screening Result: No Definite Risk - Focused Exam Date Exam was Performed: 04/25/19 Time Exam was Performed: 09:15
== END 2019-04-23 14:20 | disposition home or self-care (01) ==
LOC: CC.ED 12:02
DX: G43.909 Migraine, unspecified, not intractable, without status migrainosus (principal); F17.210 Nicotine dependence, cigarettes, uncomplicated
CPT/HCPCS: 70450; 96372; 99284-25; J1885; J2550

== ENCOUNTER 2019-05-20 06:48 | Emergency (ER) | payer MEDICAID ==
[2019-05-20] MEDS: Lactated Ringers 1,000 ML IV ONE (07:21)
[2019-05-20] MEDS: Ondansetron 4 MG/2 ML SDV IVPUSH PRN (07:22)
[2019-05-20 07:31] VITALS: BP 137/80
[2019-05-20] MEDS: Pantoprazole 40 MG Vial IVPUSH ONE (07:52)
[2019-05-20 08:09] LABS: CHLORIDE,CL 103 mEq/L (98-106); SODIUM,NA 137 mEq/L (136-145)
--- NOTE | 2019-05-20 08:41 | EDM.PDOC ---
ED HPI GENERAL MEDICAL PROBLEM - General Chief Complaint: Abdominal Pain Stated Complaint: FEVER/NAUSEA Time Seen by Provider: 05/20/19 07:30 Source of Information: Reports: Patient History Limitations: Reports: No Limitations - History of Present Illness INITIAL COMMENTS - FREE TEXT/NARRATIVE: Patient presents today with complaints of nausea/vomiting and diarrhea. States symptoms started about 2 1/2 hours ago. States abdomen is "burning". Tried to drink some water at home but vomited. Patient and worried as she felt very chilled at home, thus, took her temp and it was 93. No other members of the household have had similar symptoms. No concerns with unusual food exposure. No fevers. Onset: Today, Sudden Duration: Hour(s): Location: Reports: Abdomen Quality: Reports: Burning Severity: Moderate Improves with: Reports: None Worsens with: Reports: Eating Associated Symptoms: Reports: Fever/Chills, Nausea/Vomiting, Weakness. 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 Denies: Fever HEENT: Reports: No Symptoms Respiratory: Denies: Shortness of Breath, Cough Cardiovascular: Reports: No Symptoms Endocrine: Reports: Fatigue GI/Abdominal: Reports: Abdominal Pain, Diarrhea, Nausea, Vomiting : Reports: No Symptoms Musculoskeletal: Reports: No Symptoms Skin: Reports: No Symptoms Neurological: Reports: No Symptoms ED EXAM, GI/ABD - Physical Exam Exam: See Below Exam Limited By: No Limitations General Appearance: Alert, WD/WN, No Apparent Distress Ears: Normal External Exam, Normal TMs Nose: Normal Inspection, Normal Mucosa, No Blood Throat/Mouth: Normal Inspection, Normal Oropharynx Head: Normocephalic Neck: Normal Inspection, Supple, Non-Tender Respiratory/Chest: No Respiratory Distress, Lungs Clear, Normal Breath Sounds Cardiovascular: Regular Rate, Rhythm GI/Abdominal Exam: Normal Bowel Sounds, Soft, Tender (upper quadrants) Extremities: Normal Inspection, No Pedal Edema Neurological: Alert, Oriented Skin Exam: Warm, Dry Course - Vital Signs Last Recorded V/S: Last Vital Signs Temp 95.9 F L 05/20/19 07:24 Pulse Resp 20 05/20/19 07:24 BP 137/80 05/20/19 07:24 Pulse Ox 98 05/20/19 07:24 - Orders/Labs/Meds Labs: Laboratory Tests 05/20/19 05/20/19 Range/Units 07:50 07:50 WBC 13.3 H (5.0-10.0) 10^3/uL RBC 5.02 (4.00-5.50) 10^6/uL Hgb 16.0 (12.0-16.0) g/dL Hct 45.6 (37.0-47.0) % MCV 90.8 (82.0-94.0) fL MCH 31.9 (27.0-32.0) pg MCHC 35.1 (33.0-38.0) g/dL RDW Coeff of Kimberlee 13.3 (11.0-15.0) % Plt Count 242 (150-400) 10^3/uL Neut % (Auto) 84.5 (35-85) % Lymph % (Auto) 9.0 L (10-55) % Meigs % (Auto) 4.7 (0-16) % Eos % (Auto) 1.6 (0-5) % Baso % (Auto) 0.2 (0-3) % Neut # (Auto) 11.21 H (1.80-7.00) 10^3/uL Lymph # (Auto) 1.19 (1.00-4.80) 10^3/uL Meigs # (Auto) 0.62 (0.00-0.80) 10^3/uL Eos # (Auto) 0.21 (0.00-0.45) 10^3/uL Baso # (Auto) 0.02 10^3/uL Sodium 137 (136-145) mEq/L Potassium 4.2 (3.5-5.0) mEq/L Chloride 103 (98-106) mEq/L Carbon Dioxide 26 (21-32) mmol/L BUN 15 D (7-18) mg/dL Creatinine 0.8 (0.6-1.0) mg/dL Est Cr Clr Drug Dosing 110.33 mL/min Estimated GFR (MDRD) > 60 (>=60) mL/min Glucose 115 H D (75-99) mg/dL Calcium 8.8 (8.4-10.1) mg/dL Total Bilirubin 0.7 (0.0-1.0) mg/dL AST 16 (15-37) U/L ALT 21 (12-78) U/L Alkaline Phosphatase 80 (46-116) U/L C-Reactive Protein 0.4 (0.2-0.8) mg/dL Total Protein 7.2 (6.4-8.2) g/dL Albumin 3.7 (3.4-5.0) g/dL Amylase 26 (25-115) U/L Lipase 59 L (73-393) U/L Meds: Medications Discontinued Medications Generic Name Dose Route Start Last Admin Trade Name Freq PRN Reason Stop Dose Admin Lactated Ringer's 1,000 mls @ 999 mls/hr 05/20/19 07:09 05/20/19 07:21 Ringers, Lactated IV 05/20/19 08:09 999 mls/hr .BOLUS ONE Administration Ondansetron HCl 4 mg 05/20/19 07:10 05/20/19 07:22 Zofran IVPUSH 4 mg Q6H PRN Administration Vomiting Pantoprazole Sodium 40 mg 05/20/19 07:42 05/20/19 07:52 Protonix Iv IVPUSH 05/20/19 07:43 40 mg ONETIME ONE Administration - Re-Assessments/Exams Free Text/Narrative Re-Assessment/Exam: 05/20/19 Labs reviewed, all normal. Zofran was given, vomiting has stopped at this point. A liter of fluids infused. Departure - Departure Time of Disposition: 08:40 Disposition: Home, Self-Care 01 Condition: Fair Clinical Impression: Gastroenteritis - Discharge Information *PRESCRIPTION DRUG MONITORING PROGRAM REVIEWED*: No *COPY OF PRESCRIPTION DRUG MONITORING REPORT IN PATIENT RACIEL: No Instructions: Viral Gastroenteritis, Adult Referrals: Klaus Dougherty MD [Primary Care Provider] - Forms: ED Department Discharge Additional Instructions: 1. Rest 2. Push fluids 3. Tylenol as needed for headache/discomfort 4. Zofran 4 mg every 6 hours for nausea/vomiting 5. Clear liquids, advance as tolerated 6. Follow up if persisting concerns. Sepsis Event Note - Evaluation Sepsis Screening Result: No Definite Risk - Focused Exam Date Exam was Performed: 05/20/19 Time Exam was Performed: 20:27
== END 2019-05-20 09:10 | disposition home or self-care (01) ==
LOC: CC.ED 06:48
DX: K52.9 Noninfective gastroenteritis and colitis, unspecified (principal)
CPT/HCPCS: 36415; 80053; 82150; 83690; 85025; 86140; 96361; 96374; 96375; 99284-25; C9113; J2405; J7120

== ENCOUNTER 2019-08-30 09:35 | Emergency (ER) | payer MEDICAID ==
[2019-08-30] MEDS ORDERED: Ondansetron 4 MG/2 ML SDV IVPUSH STA (10:01)
[2019-08-30] MEDS ORDERED: Sodium Chloride 0.9% 1,000 ML IV ONE (10:01)
--- NOTE | 2019-08-30 10:05 | EDM.PDOC ---
ED HPI GENERAL MEDICAL PROBLEM - General Chief Complaint: General Stated Complaint: nausea, vomiting Time Seen by Provider: 08/30/19 09:59 Source of Information: Reports: Patient History Limitations: Reports: No Limitations - History of Present Illness INITIAL COMMENTS - FREE TEXT/NARRATIVE: This patient is a 23 year old female that presents to the ER. Patient reports that she went out drinking Friday night, then Friday had vomiting, nausea, and abdominal pain. She reports going to a different ER and was told she had alcohol poisoning. She reports they gave her Zofran and fluids. She was discharged home. She reports she felt fine yesterday. Then, today at 7am she began to vomit, nausea. She reports her stomach hurts from vomiting several times. The patient reports G3, P2, A1. She reports her LMP was in early July. Patient report that she drinks once a week, and drinks about 6 drinks when she does. Onset Date: 08/28/19 Duration: Constant Quality: Reports: Burning Severity: Moderate Improves with: Reports: None Worsens with: Reports: None Associated Symptoms: Reports: Loss of Appetite, Nausea/Vomiting. Denies: Confusion, Chest Pain, Cough, cough w sputum, Diaphoresis, Fever/Chills, Headaches, Malaise, Rash, Seizure, Shortness of Breath, Syncope, Weakness Bilateral Abdomen Pain Score (Numeric/FACES): 10 - Related Data Allergies Allergy/AdvReac Type Severity Reaction Status Date / Time No Known Allergies Allergy Verified 08/30/19 09:53 Home Meds: Home Meds Nitrofurantoin Monohyd/M-Cryst [Macrobid 100 mg Capsule] 100 mg PO BID 5 Days # 10 capsule 08/30/19 [Rx] Promethazine [Phenergan] 25 mg PO Q6H PRN #8 tab 08/30/19 [Rx] Past Medical History - Past Health History Medical/Surgical History: Denies Medical/Surgical History HEENT History: Reports: Impaired Vision 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 Denies: Shortness of Breath, Wheezing, Cough Cardiovascular: Reports: No Symptoms. Denies: Chest Pain, Lightheadedness, Palpitations Endocrine: Reports: No Symptoms GI/Abdominal: Reports: Abdominal Pain, Nausea, Vomiting. Denies: Diarrhea : Reports: No Symptoms Musculoskeletal: Reports: No Symptoms Skin: Reports: No Symptoms Neurological: Reports: No Symptoms Psychiatric: Reports: No Symptoms Hematologic/Lymphatic: Reports: No Symptoms Immunologic: Reports: No Symptoms ED EXAM, GENERAL - Physical Exam Exam: See Below Exam Limited By: No Limitations General Appearance: Alert, WD/WN, No Apparent Distress Eye Exam: Bilateral Eye: Normal Inspection, PERRL Ears: Normal External Exam, Normal Canal, Hearing Grossly Normal, Normal TMs Ear Exam: Bilateral Ear: Auricle Normal, Canal Normal, TM normal Nose: Normal Inspection, Normal Mucosa, No Blood Throat/Mouth: Normal Inspection, Normal Lips, Normal Teeth, Normal Gums, Normal Oropharynx, Normal Voice, No Airway Compromise Head: Atraumatic, Normocephalic Neck: Normal Inspection, Supple, Non-Tender, Full Range of Motion Respiratory/Chest: No Respiratory Distress, Lungs Clear, Normal Breath Sounds, No Accessory Muscle Use Cardiovascular: Normal Peripheral Pulses, Regular Rate, Rhythm, No Edema, No Gallop, No JVD, No Murmur, No Rub Peripheral Pulses: 2+: Radial (L), Radial (R), Posterior Tibial (L), Posterior Tibial (R) GI/Abdominal: Soft, No Organomegaly, No Mass, Pelvis Stable, Tender ( generalized. No localaized location. ), Abnormal Bowel Sounds (hyperactive). No : Guarding, Rigid, Rebound, Hepatomegaly, Splenomegaly Back Exam: Normal Inspection, Full Range of Motion. No: CVA Tenderness (L), CVA Tenderness (R) Extremities: Normal Inspection, Normal Range of Motion, Non-Tender, No Pedal Edema, Normal Capillary Refill Neurological: Alert, Oriented Psychiatric: Anxious Skin Exam: Warm, Dry, Intact, Normal Color, No Rash Lymphatic: No Adenopathy Course - Orders/Labs/Meds Orders: Active Orders 24 hr Category Date Time Status Sodium Chloride 0.9% [Normal Saline] 1,000 ml Med 08/30/19 10:01 Active IV .BOLUS Medication Orders Sodium Chloride (Normal Saline) 1,000 mls @ 1,000 mls/hr IV .BOLUS ONE Stop: 08/30/19 11:00 Last Admin: 08/30/19 10:42 Dose: 1,000 mls/hr Labs: Laboratory Tests 08/30/19 08/30/19 08/30/19 Range/Units 09:59 10:00 10:00 WBC (5.0-10.0) 10^3/uL RBC (4.00-5.50) 10^6/uL Hgb (12.0-16.0) g/dL Hct (37.0-47.0) % MCV (82.0-94.0) fL MCH (27.0-32.0) pg MCHC (33.0-38.0) g/dL RDW Coeff of Kimberlee (11.0-15.0) % Plt Count (150-400) 10^3/uL Neut % (Auto) (35-85) % Lymph % (Auto) (10-55) % Campbell % (Auto) (0-16) % Eos % (Auto) (0-5) % Baso % (Auto) (0-3) % Neut # (Auto) (1.80-7.00) 10^3/uL Lymph # (Auto) (1.00-4.80) 10^3/uL Campbell # (Auto) (0.00-0.80) 10^3/uL Eos # (Auto) (0.00-0.45) 10^3/uL Baso # (Auto) 10^3/uL Sodium 138 (136-145) mEq/L Potassium 3.6 (3.5-5.0) mEq/L Chloride 103 (98-106) mEq/L Carbon Dioxide 25 (21-32) mmol/L BUN 15 (7-18) mg/dL Creatinine 0.8 (0.6-1.0) mg/dL Est Cr Clr Drug Dosing TNP Estimated GFR (MDRD) > 60 (>=60) mL/min Glucose 126 H (75-99) mg/dL Calcium 8.9 (8.4-10.1) mg/dL Total Bilirubin 0.6 (0.0-1.0) mg/dL AST 18 (15-37) U/L ALT 23 (12-78) U/L Alkaline Phosphatase 66 (46-116) U/L Total Protein 7.2 (6.4-8.2) g/dL Albumin 3.9 (3.4-5.0) g/dL Amylase 40 (25-115) U/L Lipase 118 (73-393) U/L Urine Color Yellow (YELLOW) Urine Appearance Clear (CLEAR) Urine pH 7.0 (4.5-8.0) Ur Specific Jasper 1.025 H (1.003-1.020) Urine Protein 30 H (NEGATIVE) mg/dL Urine Glucose (UA) Negative (NEGATIVE) mg/dL Urine Ketones Negative (NEGATIVE) mg/dL Urine Occult Blood Negative (NEGATIVE) Urine Nitrite Negative (NEGATIVE) Urine Bilirubin Negative (NEGATIVE) Urine Urobilinogen 0.2 (0.2-1.0) EU/dL Ur Leukocyte Esterase Large H (NEGATIVE) Urine RBC Not seen (0-5) /HPF Urine WBC 5-10 H (0-5) /HPF Ur Squamous Epith Cells Moderate H (NOT SEEN) /HPF Urine Bacteria Moderate H (NOT SEEN) /HPF Urine HCG, Qual Negative 08/30/19 Range/Units 10:15 WBC 10.7 H (5.0-10.0) 10^3/uL RBC 4.89 (4.00-5.50) 10^6/uL Hgb 15.5 (12.0-16.0) g/dL Hct 43.9 (37.0-47.0) % MCV 89.8 (82.0-94.0) fL MCH 31.7 (27.0-32.0) pg MCHC 35.3 (33.0-38.0) g/dL RDW Coeff of Kimberlee 13.1 (11.0-15.0) % Plt Count 252 (150-400) 10^3/uL Neut % (Auto) 80.1 (35-85) % Lymph % (Auto) 14.6 (10-55) % Campbell % (Auto) 4.6 (0-16) % Eos % (Auto) 0.6 (0-5) % Baso % (Auto) 0.1 (0-3) % Neut # (Auto) 8.60 H (1.80-7.00) 10^3/uL Lymph # (Auto) 1.57 (1.00-4.80) 10^3/uL Campbell # (Auto) 0.49 (0.00-0.80) 10^3/uL Eos # (Auto) 0.06 (0.00-0.45) 10^3/uL Baso # (Auto) 0.01 10^3/uL Sodium (136-145) mEq/L Potassium (3.5-5.0) mEq/L Chloride (98-106) mEq/L Carbon Dioxide (21-32) mmol/L BUN (7-18) mg/dL Creatinine (0.6-1.0) mg/dL Est Cr Clr Drug Dosing Estimated GFR (MDRD) (>=60) mL/min Glucose (75-99) mg/dL Calcium (8.4-10.1) mg/dL Total Bilirubin (0.0-1.0) mg/dL AST (15-37) U/L ALT (12-78) U/L Alkaline Phosphatase (46-116) U/L Total Protein (6.4-8.2) g/dL Albumin (3.4-5.0) g/dL Amylase (25-115) U/L Lipase (73-393) U/L Urine Color (YELLOW) Urine Appearance (CLEAR) Urine pH (4.5-8.0) Ur Specific Jasper (1.003-1.020) Urine Protein (NEGATIVE) mg/dL Urine Glucose (UA) (NEGATIVE) mg/dL Urine Ketones (NEGATIVE) mg/dL Urine Occult Blood (NEGATIVE) Urine Nitrite (NEGATIVE) Urine Bilirubin (NEGATIVE) Urine Urobilinogen (0.2-1.0) EU/dL Ur Leukocyte Esterase (NEGATIVE) Urine RBC (0-5) /HPF Urine WBC (0-5) /HPF Ur Squamous Epith Cells (NOT SEEN) /HPF Urine Bacteria (NOT SEEN) /HPF Urine HCG, Qual Meds: Medications Generic Name Dose Route Start Last Admin Trade Name Freq PRN Reason Stop Dose Admin Sodium Chloride 1,000 mls @ 1,000 mls/hr 08/30/19 10:01 08/30/19 10:42 Normal Saline IV 08/30/19 11:00 1,000 mls/hr .BOLUS ONE Administration Discontinued Medications Generic Name Dose Route Start Last Admin Trade Name Freq PRN Reason Stop Dose Admin Ceftriaxone Sodium 1 gm 08/30/19 10:46 Rocephin IVPUSH 08/30/19 10:47 ONETIME ONE Ondansetron HCl 4 mg 08/30/19 10:01 Zofran IVPUSH 08/30/19 10:02 NOW STA Ondansetron HCl 4 mg 08/30/19 10:35 08/30/19 10:38 Zofran Odt PO 08/30/19 10:36 4 mg ONETIME ONE Administration Pantoprazole Sodium 40 mg 08/30/19 10:06 Protonix Iv IVPUSH 08/30/19 10:07 NOW STA - Re-Assessments/Exams Free Text/Narrative Re-Assessment/Exam: 08/30/19 10:40 RN called and reported they are having difficulty obtaining IV access. Patient is dry heaving. Zofran ODT ordered until IV access can be obtained. Departure - Departure Time of Disposition: 10:47 Disposition: Home, Self-Care 01 Condition: Fair Clinical Impression: Gastroenteritis, UTI, Urinary tract infectious disease - Discharge Information *PRESCRIPTION DRUG MONITORING PROGRAM REVIEWED*: Not Applicable *COPY OF PRESCRIPTION DRUG MONITORING REPORT IN PATIENT RACIEL: Not Applicable Prescriptions: Nitrofurantoin Monohyd/M-Cryst [Macrobid 100 mg Capsule] 100 mg PO BID 5 Days # 10 capsule Promethazine [Phenergan] 25 mg PO Q6H PRN #8 tab PRN Reason: Vomiting Instructions: Viral Gastroenteritis, Adult, [id number], Urinary Tract Infection, Adult, [id number] Referrals: Klaus Dougherty MD [Primary Care Provider] - Forms: ED Department Discharge Additional Instructions: Followup with your primary care provider for recheck in 48-72 hours: also for urine culture Return to the ER for worsening of condition or any emergent such as fever, continued vomiting Phenergan 25mg 1 pill every 6 hours as needed for nausea or vomiting #8 no refill: Sent to pharmacy Macrobid 100mg 1 pill twice a day for 5 days #10 no refill: Sent to pharmacy Increase fluids Go home and rest Sepsis Event Note - Focused Exam Date Exam was Performed: 08/30/19 Time Exam was Performed: 10:52 - My Orders Last 24 Hours: My Active Orders 08/30/19 10:01 Sodium Chloride 0.9% [Normal Saline] 1,000 ml IV .BOLUS - Assessment/Plan Last 24 Hours: My Active Orders 08/30/19 10:01 Sodium Chloride 0.9% [Normal Saline] 1,000 ml IV .BOLUS Plan: PLEASE SEE RN NOTE FOR PFSH.
[2019-08-30] MEDS ORDERED: Pantoprazole 40 MG Vial IVPUSH STA (10:06)
[2019-08-30 10:24] LABS: CHLORIDE,CL 103 mEq/L (98-106); SODIUM,NA 138 mEq/L (136-145)
[2019-08-30] MEDS ORDERED: Ondansetron 4 MG Tab.DIS PO ONE (10:35)
[2019-08-30] MEDS ORDERED: cefTRIAXone 1 GM Vial IVPUSH ONE (10:46)
[2019-08-30 11:40] VITALS: BP 136/94; PULSE 72
[2019-08-30] MEDS ORDERED: Sodium Chloride 0.9% 1,000 ML ONE (20:25)
== END 2019-08-30 11:25 | disposition home or self-care (01) ==
LOC: CC.ED 09:35
DX: K52.9 Noninfective gastroenteritis and colitis, unspecified (principal); N39.0 Urinary tract infection, site not specified
CPT/HCPCS: 36415; 80053; 81001; 81025; 82150; 83690; 85025; 96361; 96374; 96375; 99284-25; A9270-GY; C9113; J0696; J2405; J7030

== ENCOUNTER 2019-09-01 07:28 | Emergency (ER) | payer MEDICAID ==
[2019-09-01 07:47] VITALS: BP 163/97; PULSE 60
[2019-09-01] MEDS: Ondansetron 4 MG/2 ML SDV IVPUSH PRN (07:56)
[2019-09-01] MEDS: Sodium Chloride 0.9% 1,000 ML IV ONE (08:16)
[2019-09-01] MEDS: Pantoprazole 40 MG Vial IVPUSH SCH (08:18)
--- NOTE | 2019-09-01 08:22 | EDM.PDOC ---
ED HPI GENERAL MEDICAL PROBLEM - General Chief Complaint: Gastrointestinal Problem Stated Complaint: NAUSEA/VOMITTING Time Seen by Provider: 09/01/19 08:09 Source of Information: Reports: Patient History Limitations: Reports: No Limitations - History of Present Illness INITIAL COMMENTS - FREE TEXT/NARRATIVE: Has been having nausea and vomiting since getting up this AM. Was seen in the ER early this week for same issue and was found to have an UTI and was started on macrobid. She was fine yesterday and this morning the hartmann started in her abdomen with the vomiting. She did take her phenergan this morning but vomited it up. She denies any diarrhea or fever with it. Has history of ulcers when she was young. Has not ate anything unusual recently. Has been vomiting since about 0630 ths AM. Pain is both in the midepigastric and the RUQ of abdomen. Onset: Today Location: Reports: Abdomen Quality: Reports: Ache Associated Symptoms: Reports: Nausea/Vomiting Upper Abdomen Pain Score (Numeric/FACES): 8 - Related Data Allergies Allergy/AdvReac Type Severity Reaction Status Date / Time No Known Allergies Allergy Verified 09/01/19 07:38 Home Meds: Home Meds Nitrofurantoin Monohyd/M-Cryst [Macrobid 100 mg Capsule] 100 mg PO BID 5 Days # 10 capsule 08/30/19 [Rx] Promethazine [Phenergan] 25 mg PO Q6H PRN #8 tab 08/30/19 [Rx] Past Medical History - Past Health History Medical/Surgical History: Denies Medical/Surgical History HEENT History: Reports: Impaired Vision Gastrointestinal History: Reports: GERD, PUD Genitourinary History: Reports: None STRIKER OUT History: Reports: Neurological History: Reports: Headaches, Chronic Hematologic History: Reports: None - Past Surgical History GI Surgical History: Reports: None Female Surgical History: Reports: D&C Social & Family History - Family History Family Medical History: Noncontributory - Tobacco Use Smoking Status *Q: Current Every Day Smoker Years of Tobacco use: 9 Packs/Tins Daily: 1 - Caffeine Use Caffeine Use: Reports: Coffee - Recreational Drug Use Recreational Drug Use: No - Living Situation & Occupation Living situation: Reports: Single, with Significant Other ED ROS GENERAL - Review of Systems Review Of Systems: See Below Constitutional: Denies: Fever, Chills Respiratory: Reports: No Symptoms Cardiovascular: Reports: No Symptoms GI/Abdominal: Reports: Abdominal Pain, Decreased Appetite, Nausea, Vomiting. Denies: Diarrhea : Reports: No Symptoms, Other (started her menses this AM.) Skin: Reports: No Symptoms ED EXAM, GI/ABD - Physical Exam Exam: See Below Exam Limited By: No Limitations General Appearance: Alert, WD/WN, Moderate Distress Ears: Normal External Exam, Normal Canal Nose: Normal Inspection Throat/Mouth: Normal Inspection, Normal Oropharynx Head: Atraumatic, Normocephalic Neck: Normal Inspection, Supple, Non-Tender Respiratory/Chest: No Respiratory Distress, Lungs Clear, Normal Breath Sounds Cardiovascular: Normal Peripheral Pulses, Regular Rate, Rhythm GI/Abdominal Exam: Normal Bowel Sounds, Tender (right upper quadrant and midepigastric region. Currently vomiting brownish liquid with phlegm.) Back Exam: Normal Inspection Extremities: Normal Range of Motion, Normal Capillary Refill Neurological: Alert, Oriented Psychiatric: Normal Affect Skin Exam: Warm, Dry, Intact Course - Vital Signs Last Recorded V/S: Last Vital Signs Temp 96.9 F 09/01/19 07:44 Pulse 60 09/01/19 07:44 Resp 14 09/01/19 07:44 BP 163/97 H 09/01/19 07:44 Pulse Ox 98 09/01/19 07:44 - Orders/Labs/Meds Orders: Active Orders 24 hr Category Date Time Status Ondansetron [Zofran] Med 09/01/19 07:47 Active 4 mg IVPUSH Q6H PRN Pantoprazole [ProTONIX IV] Med 09/01/19 08:15 Ordered 40 mg IVPUSH Q24H Medication Orders Ondansetron HCl (Zofran) 4 mg IVPUSH Q6H PRN PRN Reason: Nausea/Vomiting Last Admin: 09/01/19 07:56 Dose: 4 mg Pantoprazole Sodium (Protonix Iv) 40 mg IVPUSH Q24H [facility] Last Admin: 09/01/19 08:18 Dose: 40 mg Labs: Laboratory Tests 09/01/19 09/01/19 09/01/19 Range/Units 08:05 08:05 08:25 WBC 11.5 H (5.0-10.0) 10^3/uL RBC 4.73 (4.00-5.50) 10^6/uL Hgb 15.0 (12.0-16.0) g/dL Hct 42.3 (37.0-47.0) % MCV 89.4 (82.0-94.0) fL MCH 31.7 (27.0-32.0) pg MCHC 35.5 (33.0-38.0) g/dL RDW Coeff of Kimberlee 12.6 (11.0-15.0) % Plt Count 222 (150-400) 10^3/uL Neut % (Auto) 76.2 (35-85) % Lymph % (Auto) 16.6 (10-55) % [place] % (Auto) 5.3 (0-16) % Eos % (Auto) 1.7 (0-5) % Baso % (Auto) 0.2 (0-3) % Neut # (Auto) 8.75 H (1.80-7.00) 10^3/uL Lymph # (Auto) 1.90 (1.00-4.80) 10^3/uL [place] # (Auto) 0.61 (0.00-0.80) 10^3/uL Eos # (Auto) 0.19 (0.00-0.45) 10^3/uL Baso # (Auto) 0.02 10^3/uL Sodium (136-145) mEq/L Potassium (3.5-5.0) mEq/L Chloride (98-106) mEq/L Carbon Dioxide (21-32) mmol/L BUN (7-18) mg/dL Creatinine (0.6-1.0) mg/dL Est Cr Clr Drug Dosing mL/min Estimated GFR (MDRD) (>=60) mL/min Glucose (75-99) mg/dL Calcium (8.4-10.1) mg/dL Total Bilirubin (0.0-1.0) mg/dL AST (15-37) U/L ALT (12-78) U/L Alkaline Phosphatase (46-116) U/L C-Reactive Protein (0.2-0.8) mg/dL Total Protein (6.4-8.2) g/dL Albumin (3.4-5.0) g/dL Amylase (25-115) U/L Lipase (73-393) U/L Urine Color Yellow (YELLOW) Urine Appearance Clear (CLEAR) Urine pH 6.0 (4.5-8.0) Ur Specific [place] >= 1.030 H (1.003-1.020) Urine Protein Negative (NEGATIVE) mg/dL Urine Glucose (UA) Negative (NEGATIVE) mg/dL Urine Ketones Negative (NEGATIVE) mg/dL Urine Occult Blood Moderate H (NEGATIVE) Urine Nitrite Negative (NEGATIVE) Urine Bilirubin Negative (NEGATIVE) Urine Urobilinogen 0.2 (0.2-1.0) EU/dL Ur Leukocyte Esterase Negative (NEGATIVE) Urine RBC 5-10 H (0-5) /HPF Urine WBC Not seen (0-5) /HPF Ur Squamous Epith Cells Few H (NOT SEEN) /HPF Urine Bacteria Occasional H (NOT SEEN) /HPF Urine HCG, Qual Negative 09/01/19 Range/Units 08:25 WBC (5.0-10.0) 10^3/uL RBC (4.00-5.50) 10^6/uL Hgb (12.0-16.0) g/dL Hct (37.0-47.0) % MCV (82.0-94.0) fL MCH (27.0-32.0) pg MCHC (33.0-38.0) g/dL RDW Coeff of Kimberlee (11.0-15.0) % Plt Count (150-400) 10^3/uL Neut % (Auto) (35-85) % Lymph % (Auto) (10-55) % [place] % (Auto) (0-16) % Eos % (Auto) (0-5) % Baso % (Auto) (0-3) % Neut # (Auto) (1.80-7.00) 10^3/uL Lymph # (Auto) (1.00-4.80) 10^3/uL [place] # (Auto) (0.00-0.80) 10^3/uL Eos # (Auto) (0.00-0.45) 10^3/uL Baso # (Auto) 10^3/uL Sodium 138 (136-145) mEq/L Potassium 3.5 (3.5-5.0) mEq/L Chloride 104 (98-106) mEq/L Carbon Dioxide 24 (21-32) mmol/L BUN 12 (7-18) mg/dL Creatinine 0.7 (0.6-1.0) mg/dL Est Cr Clr Drug Dosing 135.16 mL/min Estimated GFR (MDRD) > 60 (>=60) mL/min Glucose 108 H (75-99) mg/dL Calcium 8.3 L (8.4-10.1) mg/dL Total Bilirubin 0.5 (0.0-1.0) mg/dL AST 16 (15-37) U/L ALT 24 (12-78) U/L Alkaline Phosphatase 63 (46-116) U/L C-Reactive Protein 0.3 (0.2-0.8) mg/dL Total Protein 6.7 (6.4-8.2) g/dL Albumin 3.6 (3.4-5.0) g/dL Amylase 24 L (25-115) U/L Lipase 85 (73-393) U/L Urine Color (YELLOW) Urine Appearance (CLEAR) Urine pH (4.5-8.0) Ur Specific [place] (1.003-1.020) Urine Protein (NEGATIVE) mg/dL Urine Glucose (UA) (NEGATIVE) mg/dL Urine Ketones (NEGATIVE) mg/dL Urine Occult Blood (NEGATIVE) Urine Nitrite (NEGATIVE) Urine Bilirubin (NEGATIVE) Urine Urobilinogen (0.2-1.0) EU/dL Ur Leukocyte Esterase (NEGATIVE) Urine RBC (0-5) /HPF Urine WBC (0-5) /HPF Ur Squamous Epith Cells (NOT SEEN) /HPF Urine Bacteria (NOT SEEN) /HPF Urine HCG, Qual Meds: Medications Generic Name Dose Route Start Last Admin Trade Name Erika PRN Reason Stop Dose Admin Ondansetron HCl 4 mg 09/01/19 07:47 09/01/19 07:56 Zofran IVPUSH 4 mg Q6H PRN Administration Nausea/Vomiting Pantoprazole Sodium 40 mg 09/01/19 08:15 09/01/19 08:18 Protonix Iv IVPUSH 40 mg Q24H KADE Administration Discontinued Medications Generic Name Dose Route Start Last Admin Trade Name Erika PRN Reason Stop Dose Admin Al Hydroxide/Mg Hydroxide 30 0 ml 09/01/19 08:24 09/01/19 08:32 ml/ Lidocaine HCl 15 ml PO 09/01/19 08:25 45 ml ONETIME ONE Administration Sodium Chloride 1,000 mls @ 999 mls/hr 09/01/19 08:12 09/01/19 08:16 Normal Saline IV 09/01/19 09:12 999 mls/hr .BOLUS ONE Administration Promethazine HCl 50 mg/ Sodium 52 mls @ 100 mls/hr 09/01/19 08:52 09/01/19 08 :57 Chloride IV 09/01/19 09:23 100 mls/hr ONETIME ONE Administration - Re-Assessments/Exams Free Text/Narrative Re-Assessment/Exam: 09/01/19 09:34 Feeling better and nausea is gone. She is back tender cylinder in the upper abdomen. Discussed that labs are normal at this time. Will discharge on protonix and carafate and schedule for GB US when able. Departure - Departure Time of Disposition: 09:38 Disposition: Home, Self-Care 01 Condition: Good Clinical Impression: Abdominal pain - Discharge Information *PRESCRIPTION DRUG MONITORING PROGRAM REVIEWED*: Not Applicable *COPY OF PRESCRIPTION DRUG MONITORING REPORT IN PATIENT RACIEL: Not Applicable Instructions: Abdominal Pain, Adult, [id number] Forms: ED Department Discharge Additional Instructions: Appt for abdominal Ultrasound 09/01 at 9:30. Nothing to eat or drink after midnight. Start Protonix 40 mg daily- start tomorrow. start carafate 4 times a day- before meals and at bedtime. use phenergan that you have at home as needed for nausea avoid milk for the next several days eat bland diet as tolerated Sepsis Event Note - Evaluation Sepsis Screening Result: No Definite Risk - Focused Exam Vital Signs: Vital Signs Temp Pulse Resp BP Pulse Ox 09/01/19 07:44 96.9 F 60 14 163/97 H 98 Date Exam was Performed: 09/01/19 Time Exam was Performed: 09:33 - Problem List & Annotations (1) Abdominal pain SNOMED Code(s): 03919632 Code(s): R10.9 - UNSPECIFIED ABDOMINAL PAIN Status: Acute Priority: High Current Visit: Yes - Problem List Review Problem List Initiated/Reviewed/Updated: Yes - My Orders Last 24 Hours: My Active Orders 09/01/19 08:15 Pantoprazole [ProTONIX IV] 40 mg IVPUSH Q24H - Assessment/Plan Last 24 Hours: My Active Orders 09/01/19 08:15 Pantoprazole [ProTONIX IV] 40 mg IVPUSH Q24H
[2019-09-01] MEDS: Alum Hydrox/Mag Hydrox/Simeth 30 ML, Lidocaine 2% 15 ML PO ONE ×2 (08:32)
[2019-09-01 08:45] LABS: CHLORIDE,CL 104 mEq/L (98-106); SODIUM,NA 138 mEq/L (136-145)
[2019-09-01] MEDS: Promethazine 50 MG in Sodium Chloride 0.9% 50 ML IV ONE (08:57)
== END 2019-09-01 09:48 | disposition home or self-care (01) ==
LOC: CC.ED 07:28
DX: R10.11 Right upper quadrant pain (principal); R10.13 Epigastric pain; F17.210 Nicotine dependence, cigarettes, uncomplicated
CPT/HCPCS: 36415; 80053; 81001; 81025; 82150; 83690; 85025; 86140; 96361; 96365; 96375; 99284-25; A9270-GY; C9113; J2405; J2550; J7030; J7050

== ENCOUNTER 2019-09-29 08:44 | Emergency (ER) | payer MEDICAID ==
[2019-09-29 08:50] VITALS: BP 146/94; PULSE 60
[2019-09-29] MEDS: Ondansetron 4 MG/2 ML SDV IVPUSH STA ×2 (09:01→09:12)
[2019-09-29] MEDS: Sodium Chloride 0.9% 1,000 ML IV ONE (09:01)
--- NOTE | 2019-09-29 09:10 | EDM.PDOC ---
ED HPI GENERAL MEDICAL PROBLEM - General Chief Complaint: Gastrointestinal Problem Stated Complaint: NAUSEA/BAD STOMACH PAINS Time Seen by Provider: 09/29/19 08:55 Source of Information: Reports: Patient History Limitations: Reports: No Limitations - History of Present Illness INITIAL COMMENTS - FREE TEXT/NARRATIVE: States that her abdominal pain and vomiting started again this AM. Did have some yesterday but it resolved on its own. Was seen in the clinic yesterday and was pain free. Is scheduled for HIDA coming up. Has had normal US without any stones. Pain is in the RUQ. She has had trial of carafate for 4 weeks and continue on PPI at home. She thought she was better initially but now is getting this pain back. She ate salad from [employer] for lunch and a club sandwich for supper. No diarrhea or constipation. Onset: Today Location: Reports: Abdomen Quality: Reports: Stabbing Associated Symptoms: Reports: Nausea/Vomiting. Denies: Fever/Chills Epigastric Pain Score (Numeric/FACES): 6 - Related Data Allergies Allergy/AdvReac Type Severity Reaction Status Date / Time No Known Allergies Allergy Verified 09/01/19 07:38 Home Meds: Home Meds Ondansetron [Zofran ODT] 4 mg PO Q6H PRN 09/29/19 [History] Past Medical History - Past Health History Medical/Surgical History: Denies Medical/Surgical History HEENT History: Reports: Impaired Vision Gastrointestinal History: Reports: GERD, PUD Genitourinary History: Reports: None [employer]ER History: Reports: Neurological History: Reports: Headaches, Chronic Hematologic History: Reports: None - Past Surgical History GI Surgical History: Reports: None Female Surgical History: Reports: D&C Social & Family History - Family History Family Medical History: Noncontributory - Caffeine Use Caffeine Use: Reports: Coffee - Living Situation & Occupation Living situation: Reports: Single, with Significant Other ED ROS GENERAL - Review of Systems Review Of Systems: See Below Constitutional: Denies: Fever, Chills Respiratory: Reports: No Symptoms Cardiovascular: Reports: No Symptoms GI/Abdominal: Reports: Abdominal Pain, Nausea, Vomiting. Denies: Constipation, Diarrhea : Reports: No Symptoms Musculoskeletal: Reports: No Symptoms Skin: Reports: No Symptoms Neurological: Reports: No Symptoms ED EXAM, GI/ABD - Physical Exam Exam: See Below Exam Limited By: No Limitations General Appearance: Alert, WD/WN, Moderate Distress Neck: Normal Inspection, Supple, Non-Tender Respiratory/Chest: No Respiratory Distress, Lungs Clear, Normal Breath Sounds Cardiovascular: Regular Rate, Rhythm, No Edema GI/Abdominal Exam: Normal Bowel Sounds, Soft, Tender (to the RUQ and the midepigastric area with palpation. No guarding noted.), Abnormal Bowel Sounds Neurological: Alert, Oriented Course - Vital Signs Last Recorded V/S: Last Vital Signs Temp 96.7 F L 09/29/19 08:48 Pulse 60 09/29/19 08:48 Resp 16 09/29/19 08:48 BP 146/94 H 09/29/19 08:48 Pulse Ox 97 09/29/19 08:48 - Orders/Labs/Meds Orders: Active Orders 24 hr Category Date Time Status Pantoprazole [ProTONIX IV] Med 09/29/19 09:15 Active 40 mg IVPUSH Q24H Promethazine [Phenergan] 50 mg Med 09/29/19 10:05 Active Sodium Chloride 0.9% [Normal Saline] 50 ml IV STAT Sodium Chloride 0.9% [Normal Saline] 500 ml Med 09/29/19 10:15 Active IV .BOLUS Medication Orders Promethazine HCl 50 mg/ Sodium (Chloride) 52 mls @ 100 mls/hr IV STAT STA Stop: 09/29/19 10:36 Last Admin: 09/29/19 10:10 Dose: 100 mls/hr Documented by: AMARA Sodium Chloride (Normal Saline) 500 mls @ 999 mls/hr IV .BOLUS KADE Last Admin: 09/29/19 10:19 Dose: 999 mls/hr Documented by: AMARA Pantoprazole Sodium (Protonix Iv) 40 mg IVPUSH Q24H KADE Last Admin: 09/29/19 09:17 Dose: 40 mg Documented by: AMARA Labs: Laboratory Tests 09/29/19 09/29/19 Range/Units 08:53 08:53 WBC 7.6 (5.0-10.0) 10^3/uL RBC 5.02 (4.00-5.50) 10^6/uL Hgb 15.9 (12.0-16.0) g/dL Hct 45.2 (37.0-47.0) % MCV 90.0 (82.0-94.0) fL MCH 31.7 (27.0-32.0) pg MCHC 35.2 (33.0-38.0) g/dL RDW Coeff of Kimberlee 13.0 (11.0-15.0) % Plt Count 249 (150-400) 10^3/uL Neut % (Auto) 63.3 (35-85) % Lymph % (Auto) 26.6 (10-55) % [place] % (Auto) 7.9 (0-16) % Eos % (Auto) 1.9 (0-5) % Baso % (Auto) 0.3 (0-3) % Neut # (Auto) 4.79 (1.80-7.00) 10^3/uL Lymph # (Auto) 2.01 (1.00-4.80) 10^3/uL [place] # (Auto) 0.60 (0.00-0.80) 10^3/uL Eos # (Auto) 0.14 (0.00-0.45) 10^3/uL Baso # (Auto) 0.02 10^3/uL Sodium 143 (136-145) mEq/L Potassium 3.6 (3.5-5.0) mEq/L Chloride 105 (98-106) mEq/L Carbon Dioxide 28 (21-32) mmol/L BUN 15 (7-18) mg/dL Creatinine 0.8 (0.6-1.0) mg/dL Est Cr Clr Drug Dosing 118.27 mL/min Estimated GFR (MDRD) > 60 (>=60) mL/min Glucose 105 H (75-99) mg/dL Calcium 8.9 (8.4-10.1) mg/dL Total Bilirubin 0.9 (0.0-1.0) mg/dL AST 14 L (15-37) U/L ALT 20 (12-78) U/L Alkaline Phosphatase 63 (46-116) U/L C-Reactive Protein 0.4 (0.2-0.8) mg/dL Total Protein 7.3 (6.4-8.2) g/dL Albumin 3.9 (3.4-5.0) g/dL Amylase 23 L (25-115) U/L Meds: Medications Generic Name Dose Route Start Last Admin Trade Name Freq PRN Reason Stop Dose Admin Promethazine HCl 50 mg/ Sodium 52 mls @ 100 mls/hr 09/29/19 10:05 09/29/19 10:10 Chloride IV 09/29/19 10:36 100 mls/hr STAT STA Administration Sodium Chloride 500 mls @ 999 mls/hr 09/29/19 10:15 09/29/19 10:19 Normal Saline IV 999 mls/hr .BOLUS KADE Administration Pantoprazole Sodium 40 mg 09/29/19 09:15 09/29/19 09:17 Protonix Iv IVPUSH 40 mg Q24H KADE Administration Discontinued Medications Generic Name Dose Route Start Last Admin Trade Name Freq PRN Reason Stop Dose Admin Al Hydroxide/Mg Hydroxide 30 0 ml 09/29/19 09:10 09/29/19 09:17 ml/ Lidocaine HCl 15 ml PO 09/29/19 09:11 45 ml ONETIME ONE Administration Sodium Chloride 1,000 mls @ 999 mls/hr 09/29/19 08:53 09/29/19 09:01 Normal Saline IV 09/29/19 09:53 999 mls/hr .BOLUS ONE Administration Ondansetron HCl 4 mg 09/29/19 08:53 09/29/19 09:01 Zofran IVPUSH 09/29/19 08:54 4 mg STAT STA Administration Ondansetron HCl 4 mg 09/29/19 09:01 09/29/19 09:12 Zofran IVPUSH 09/29/19 09:02 4 mg STAT STA Administration - Re-Assessments/Exams Free Text/Narrative Re-Assessment/Exam: 09/29/19 10:05 IV infused and she continues to have the nausea. will try phenergan for nausea. 09/29/19 10:31 States that the phenergan worked better for the nausea. will discharge with phenergan for home use. Has HIDA scan scheduled for the morning. Will decide if she need surgical consult when results are back. Departure - Departure Time of Disposition: 10:32 Disposition: Home, Self-Care 01 Condition: Good Clinical Impression: Abdominal pain - Discharge Information *PRESCRIPTION DRUG MONITORING PROGRAM REVIEWED*: Not Applicable *COPY OF PRESCRIPTION DRUG MONITORING REPORT IN PATIENT RACIEL: Not Applicable Forms: ED Department Discharge Additional Instructions: monitor diet closely over the weekend to what triggers your nausea and pain continue your meds at home use phenergan for the nausea as it worked better in the ER push fluids as much as possible HIDA scan at 7:30 AM tomorrow. Will call when results are back for further follow up. Sepsis Event Note (ED) - Evaluation Sepsis Screening Result: No Definite Risk - Focused Exam Vital Signs: Vital Signs Temp Pulse Resp BP Pulse Ox 09/29/19 08:48 96.7 F L 60 16 146/94 H 97 - Problem List & Annotations (1) Abdominal pain SNOMED Code(s): 51605986 Code(s): R10.9 - UNSPECIFIED ABDOMINAL PAIN Status: Acute Priority: High Current Visit: Yes - Problem List Review Problem List Initiated/Reviewed/Updated: Yes - My Orders Last 24 Hours: My Active Orders 09/29/19 09:15 Pantoprazole [ProTONIX IV] 40 mg IVPUSH Q24H 09/29/19 10:05 Promethazine [Phenergan] 50 mg Sodium Chloride 0.9% [Normal Saline] 50 ml IV STAT 09/29/19 10:15 Sodium Chloride 0.9% [Normal Saline] 500 ml IV .BOLUS - Assessment/Plan Last 24 Hours: My Active Orders 09/29/19 09:15 Pantoprazole [ProTONIX IV] 40 mg IVPUSH Q24H 09/29/19 10:05 Promethazine [Phenergan] 50 mg Sodium Chloride 0.9% [Normal Saline] 50 ml IV STAT 09/29/19 10:15 Sodium Chloride 0.9% [Normal Saline] 500 ml IV .BOLUS
[2019-09-29] MEDS: Alum Hydrox/Mag Hydrox/Simeth 30 ML, Lidocaine 2% 15 ML PO ONE ×2 (09:17)
[2019-09-29] MEDS: Pantoprazole 40 MG Vial IVPUSH SCH (09:17)
[2019-09-29 09:35] LABS: CHLORIDE,CL 105 mEq/L (98-106); SODIUM,NA 143 mEq/L (136-145)
[2019-09-29] MEDS: Promethazine 50 MG in Sodium Chloride 0.9% 50 ML IV STA (10:10)
[2019-09-29] MEDS: Sodium Chloride 0.9% 500 ML IV SCH (10:19)
== END 2019-09-29 10:50 | disposition home or self-care (01) ==
LOC: CC.ED 08:44
DX: R10.13 Epigastric pain (principal); R10.11 Right upper quadrant pain
CPT/HCPCS: 36415; 80053; 82150; 85025; 86140; 96361; 96365; 96375; 99284; A9270; C9113; J2405; J2550; J7030; J7040; J7050

== ENCOUNTER 2019-09-30 14:08 | Observation (INO) | payer MEDICAID ==
[2019-09-30] MEDS ORDERED: Promethazine 25 MG in Sodium Chloride 0.9% 50 ML IV ONE (14:45)
[2019-09-30] MEDS: Sodium Chloride 0.9% 1,000 ML IV SCH ×2 (14:53→17:35)
[2019-09-30] MEDS: Lactated Ringers 1,000 ML IV SCH (21:06)
--- NOTE | 2019-09-30 21:40 | PCM.HP.2 ---
H&P History of Present Illness - General Date of Service: 09/30/19 Admit Problem/Dx: Admission Diagnosis/Problem Admission Diagnosis/Problem Abdominal pain Source of Information: Patient, Old Records History Limitations: Reports: No Limitations - History of Present Illness Initial Comments - Free Text/Narative: Lori is a 23 yo female who is admitted direct admit to observation for ongoing abdominal pain. She has been seen in the ED on 3 occasions over the last month with this abdominal pain, nausea, and vomiting. Has been having RUQ pain. Was felt to be gallbladder, but has had normal US and HIDA scan. Is scheduled to have EGD on Friday. Had presented for outpatient IV fluids and IV antiemetics today. Did receive 2 L NS and 25 mg Phenergan, but continued to have pain, nausea, and vomiting and refused to go home. Reports she will just keep coming into ED so opted to admit to observation for further IVF and antiemetics. She reports pain first started about 1 month ago. With pain she had nausea and vomiting. Has had normal lab workup. She reports that she was given Zofran last month and that seemed to help. She was feeling good for a few weeks and then pain started again Friday. She was again seen in the ED. Was started on Protonix and carafate. She reports she "just doesn't feel good." No aggravating or alleviating factors. No fever, chills, chest pain, cough, shortness of breath, urinary symptoms. Denies any recent ETOH or drug use. No significant PMH. Symptom Onset Date: 09/27/19 Duration of Symptoms: Reports: Constant Location: Reports: Abdomen Quality: Reports: Ache, Burning Improves with: Reports: Medication (Phenergan) Associated Symptoms: Reports: Loss of Appetite, Malaise, Nausea/Vomiting. Denies: Fever/Chills, Headaches Upper Abdominal Pain Score (Numeric/FACES): 4 - Related Data Allergies/Adverse Reactions: Allergies Allergy/AdvReac Type Severity Reaction Status Date / Time No Known Allergies Allergy Verified 09/30/19 14:19 Home Medications: Home Meds Ondansetron [Zofran ODT] 4 mg PO Q6H PRN 09/29/19 [History] Pantoprazole Sodium [Protonix] 1 tab PO DAILY 09/30/19 [History] Past Medical History - Past Health History Medical/Surgical History: Denies Medical/Surgical History HEENT History: Reports: Impaired Vision Gastrointestinal History: Reports: GERD, PUD Genitourinary History: Reports: None X RAY PHYSICIAN History: Reports: , Other (See Below) Other OB/BYN History: molar Neurological History: Reports: Headaches, Chronic Hematologic History: Reports: None - Past Surgical History GI Surgical History: Reports: None Female Surgical History: Reports: D&C Social & Family History - Family History Family Medical History: Noncontributory - Tobacco Use Smoking Status *Q: Current Every Day Smoker Years of Tobacco use: 10 Packs/Tins Daily: 1 - Caffeine Use Caffeine Use: Reports: Coffee - Recreational Drug Use Recreational Drug Use: No - Living Situation & Occupation Living situation: Reports: Single, with Significant Other H&P Review of Systems - Review of Systems: Review Of Systems: See Below General: Reports: No Symptoms, Malaise, Fatigue, Decreased Appetite. Denies: Fever, Weakness HEENT: Reports: No Symptoms Pulmonary: Reports: No Symptoms Cardiovascular: Reports: No Symptoms Gastrointestinal: Reports: Abdominal Pain, Decreased Appetite, Nausea, Vomiting. Denies: Black Stool, Bloody Stool, Constipation, Diarrhea, Hematemesis, Hematochezia, Melena Genitourinary: Reports: No Symptoms. Denies: Dysuria, Frequency, Urgency Musculoskeletal: Reports: No Symptoms Skin: Reports: No Symptoms Psychiatric: Reports: No Symptoms Neurological: Reports: No Symptoms Hematologic/Lymphatic: Reports: No Symptoms Immunologic: Reports: No Symptoms Exam - Exam Exam: See Below - Vital Signs Vital Signs: Last Vital Signs Temp 98.9 F 09/30/19 20:15 Pulse 112 H 09/30/19 20:15 Resp 18 09/30/19 20:15 BP 142/82 H 09/30/19 20:15 Pulse Ox 97 09/30/19 20:15 Weight: 222 lb 1.6 oz - Exam General: Alert, Oriented, 4 HEENT: PERRLA, Hearing Intact, Mucosa Moist & [place], Nares Patent, Normal Nasal Septum, Posterior Pharynx Clear, Conjunctiva Clear, EOMI, EACs Clear, TMs Clear Neck: Supple, Trachea Midline, 2 Lungs: Clear to Auscultation, Normal Respiratory Effort Cardiovascular: Regular Rate, Regular Rhythm GI/Abdominal Exam: Soft, No Organomegaly, No Distention, Tender (epigastric, RUQ & RLQ), Abnormal Bowel Sounds (hypoactive throughout) Back Exam: Normal Inspection, Full Range of Motion. No: CVA Tenderness (L), CVA Tenderness (R) Extremities: Normal Inspection, Normal Range of Motion, Non-Tender, No Pedal Edema, Normal Capillary Refill Skin: Warm, Dry, Intact Neurological: Cranial Nerves Intact, Reflexes Equal Bilateral Neuro Extensive - Mental Status: Alert, Oriented x3, Normal Mood/Affect, Normal Cognition Neuro Extensive - Motor, Sensory, Reflexes: CN II-XII Intact, Normal Gait, Normal Reflexes Psychiatric: Alert, Normal Affect, Normal Mood - Patient Data Result Diagrams: 10/01/19 11:02 10/01/19 11:02 Sepsis Event Note - Evaluation Sepsis Screening Result: No Definite Risk - Focused Exam Vital Signs: Vital Signs Temp Pulse Resp BP Pulse Ox 09/30/19 20:15 98.9 F 112 H 18 142/82 H 97 09/30/19 14:17 97.8 F 65 16 146/90 H 100 Date Exam was Performed: 10/01/19 Time Exam was Performed: 12:01 - Problem List (1) Abdominal pain SNOMED Code(s): 53379573 ICD Code: R10.9 - UNSPECIFIED ABDOMINAL PAIN Status: Acute Priority: High Current Visit: No (2) Vomiting SNOMED Code(s): 267514530 ICD Code: R11.10 - VOMITING, UNSPECIFIED Status: Acute Current Visit: Yes Problem List Initiated/Reviewed/Updated: Yes Orders Last 24hrs: Active Orders 24 hr Category Date Time Status Patient Status [ADT] Routine ADT 09/30/19 20:15 Active Intake and Output [RC] 0600,1800 Care 09/30/19 20:16 Active Oxygen Therapy [RC] .PRN Care 09/30/19 20:15 Active Up ad Laurita [RC] .PRN Care 09/30/19 20:15 Active Vital Signs [RC] 0000,0400,0800,1200,1600,2000 Care 09/30/19 20:15 Active Clear Liquid Diet [DIET] Diet 09/30/19 Dinner Active DRUG SCREEN URINE BIORAD [URCHEM] Stat Lab 09/30/19 20:19 Ordered HCG QUALITATIVE,URINE [URCHEM] Routine Lab 09/30/19 20:20 Ordered UA RFX CARLOS AND CULT IF INDIC [URIN] Routine Lab 09/30/19 20:26 Ordered Lactated Ringers [Ringers, Lactated] 1,000 ml Med 09/30/19 20:15 Active IV ASDIRECTED Promethazine [Phenergan] 25 mg Med 09/30/19 20:15 Active Sodium Chloride 0.9% [Normal Saline] 50 ml IV Q6H Resuscitation Status Routine Resus Stat 09/30/19 20:15 Ordered Medication Orders Lactated Ringer's (Ringers, Lactated) 1,000 mls @ 125 mls/hr IV ASDIRECTED KADE Last Admin: 09/30/19 21:06 Dose: 125 mls/hr Documented by: BELELI Promethazine HCl 25 mg/ Sodium (Chloride) 51 mls @ 100 mls/hr IV Q6H PRN PRN Reason: Nausea/Vomiting Assessment/Plan Comment:: Assessment 1) Abdominal pain 2) Nausea and Vomiting 3) Suspected GERD/PUD Plan Patient does not feel she can discharge home given ongoing pain and vomiting. Admit to observation. Continue with IVF and Phenergan as needed for N/V. Will start IV protonix. Patient tentatively scheduled for EGD Friday. Patient denies any drug use. Awaiting urine tox screen. Has had normal lab workup. Anticipate discharge in am if N/V and pain resolves.
[2019-09-30] MEDS: Pantoprazole 40 MG Vial IVPUSH SCH (22:28)
[2019-09-30] MEDS: Promethazine 25 MG in Sodium Chloride 0.9% 50 ML IV PRN (22:28)
[2019-10-01] MEDS: Lactated Ringers 1,000 ML IV SCH ×3 (04:57→22:17)
[2019-10-01] MEDS: Promethazine 25 MG in Sodium Chloride 0.9% 50 ML IV PRN ×2 (04:57→17:53)
[2019-10-01] MEDS ORDERED: Iopamidol 755 Mg/ML 100 ML Bottle IVPUSH ONE (10:30)
[2019-10-01 11:21] LABS: CHLORIDE,CL 101 mEq/L (98-106); SODIUM,NA 137 mEq/L (136-145)
--- NOTE | 2019-10-01 11:39 | PCM.PN ---
- General Info Date of Service: 10/01/19 Admission Dx/Problem (Free Text): Admission Diagnosis/Problem Admission Diagnosis/Problem Abdominal pain Subjective Update: Lori is a 23 yo female admitted observation last evening with uncontrollable abdominal pain, nausea, and vomiting. She reports she continues to not feel well this morning. Has continued to have nausea and vomiting, as well as right sided abdominal pain. Functional Status: Reports: Urinating. Denies: Pain Controlled, Tolerating Diet, New Symptoms - Review of Systems General: Reports: Fatigue. Denies: Fever, Weakness, Chills HEENT: Reports: No Symptoms Pulmonary: Reports: No Symptoms Cardiovascular: Reports: No Symptoms Gastrointestinal: Reports: Abdominal Pain, Decreased Appetite. Denies: Diarrhea, Nausea, Vomiting Genitourinary: Reports: No Symptoms Musculoskeletal: Reports: No Symptoms Skin: Reports: No Symptoms Neurological: Reports: No Symptoms Psychiatric: Reports: No Symptoms - Patient Data Vitals - Most Recent: Last Vital Signs Temp 97.8 F 10/01/19 08:00 Pulse 60 10/01/19 08:00 Resp 16 10/01/19 08:00 BP 148/94 H 10/01/19 08:00 Pulse Ox 100 10/01/19 08:00 Weight - Most Recent: 222 lb 1.6 oz I&O - Last 24 Hours: Intake & Output 09/30/19 10/01/19 10/01/19 22:59 06:59 14:59 Intake Total 1000 981 835 Output Total 1100 450 Balance 1000 -119 385 Lab Results Last 24 Hours: Laboratory Results - last 24 hr 09/30/19 09/30/19 09/30/19 Range/Units 23:09 23:09 23:09 WBC (5.0-10.0) 10^3/uL RBC (4.00-5.50) 10^6/uL Hgb (12.0-16.0) g/dL Hct (37.0-47.0) % MCV (82.0-94.0) fL MCH (27.0-32.0) pg MCHC (33.0-38.0) g/dL RDW Coeff of Kimberlee (11.0-15.0) % Plt Count (150-400) 10^3/uL Neut % (Auto) (35-85) % Lymph % (Auto) (10-55) % [place] % (Auto) (0-16) % Eos % (Auto) (0-5) % Baso % (Auto) (0-3) % Neut # (Auto) (1.80-7.00) 10^3/uL Lymph # (Auto) (1.00-4.80) 10^3/uL [place] # (Auto) (0.00-0.80) 10^3/uL Eos # (Auto) (0.00-0.45) 10^3/uL Baso # (Auto) 10^3/uL Sodium (136-145) mEq/L Potassium (3.5-5.0) mEq/L Chloride (98-106) mEq/L Carbon Dioxide (21-32) mmol/L BUN (7-18) mg/dL Creatinine (0.6-1.0) mg/dL Est Cr Clr Drug Dosing mL/min Estimated GFR (MDRD) (>=60) mL/min Glucose (75-99) mg/dL Calcium (8.4-10.1) mg/dL Total Bilirubin (0.0-1.0) mg/dL AST (15-37) U/L ALT (12-78) U/L Alkaline Phosphatase (46-116) U/L C-Reactive Protein (0.2-0.8) mg/dL Total Protein (6.4-8.2) g/dL Albumin (3.4-5.0) g/dL Amylase (25-115) U/L Lipase (73-393) U/L Urine Color Yellow (YELLOW) Urine Appearance Clear (CLEAR) Urine pH 7.5 (4.5-8.0) Ur Specific [place] 1.020 (1.003-1.020) Urine Protein Negative (NEGATIVE) mg/dL Urine Glucose (UA) Negative (NEGATIVE) mg/dL Urine Ketones >=160 H (NEGATIVE) mg/dL Urine Occult Blood Negative (NEGATIVE) Urine Nitrite Negative (NEGATIVE) Urine Bilirubin Negative (NEGATIVE) Urine Urobilinogen 0.2 (0.2-1.0) EU/dL Ur Leukocyte Esterase Negative (NEGATIVE) Urine HCG, Qual Negative Urine Opiates Screen Negative (NEGATIVE) Ur Oxycodone Screen Negative (NEGATIVE) Urine Methadone Screen Negative (NEGATIVE) Ur Barbiturates Screen Negative (NEGATIVE) U Tricyclic Antidepress Negative (NEGATIVE) Ur Phencyclidine Scrn Negative (NEGATIVE) Ur Amphetamine Screen Negative (NEGATIVE) U Methamphetamines Scrn Negative (NEGATIVE) Urine MDMA Screen Negative (NEGATIVE) U Benzodiazepines Scrn Positive H (NEGATIVE) Urine Cocaine Screen Negative (NEGATIVE) U Marijuana (THC) Screen Positive H (NEGATIVE) 10/01/19 10/01/19 Range/Units 11:02 11:02 WBC 10.1 H (5.0-10.0) 10^3/uL RBC 4.49 (4.00-5.50) 10^6/uL Hgb 14.3 (12.0-16.0) g/dL Hct 39.5 (37.0-47.0) % MCV 88.0 (82.0-94.0) fL MCH 31.8 (27.0-32.0) pg MCHC 36.2 (33.0-38.0) g/dL RDW Coeff of Kimberlee 12.1 (11.0-15.0) % Plt Count 220 (150-400) 10^3/uL Neut % (Auto) 76.9 (35-85) % Lymph % (Auto) 17.8 (10-55) % [place] % (Auto) 5.0 (0-16) % Eos % (Auto) 0.2 (0-5) % Baso % (Auto) 0.1 (0-3) % Neut # (Auto) 7.73 H (1.80-7.00) 10^3/uL Lymph # (Auto) 1.79 (1.00-4.80) 10^3/uL [place] # (Auto) 0.50 (0.00-0.80) 10^3/uL Eos # (Auto) 0.02 (0.00-0.45) 10^3/uL Baso # (Auto) 0.01 10^3/uL Sodium 137 (136-145) mEq/L Potassium 3.6 (3.5-5.0) mEq/L Chloride 101 (98-106) mEq/L Carbon Dioxide 27 (21-32) mmol/L BUN 7 D (7-18) mg/dL Creatinine 0.7 (0.6-1.0) mg/dL Est Cr Clr Drug Dosing 117.01 mL/min Estimated GFR (MDRD) > 60 (>=60) mL/min Glucose 98 (75-99) mg/dL Calcium 8.3 L (8.4-10.1) mg/dL Total Bilirubin 0.9 (0.0-1.0) mg/dL AST 11 L (15-37) U/L ALT 15 (12-78) U/L Alkaline Phosphatase 54 (46-116) U/L C-Reactive Protein 0.6 (0.2-0.8) mg/dL Total Protein 6.6 (6.4-8.2) g/dL Albumin 3.4 (3.4-5.0) g/dL Amylase 19 L (25-115) U/L Lipase 53 L (73-393) U/L Urine Color (YELLOW) Urine Appearance (CLEAR) Urine pH (4.5-8.0) Ur Specific [place] (1.003-1.020) Urine Protein (NEGATIVE) mg/dL Urine Glucose (UA) (NEGATIVE) mg/dL Urine Ketones (NEGATIVE) mg/dL Urine Occult Blood (NEGATIVE) Urine Nitrite (NEGATIVE) Urine Bilirubin (NEGATIVE) Urine Urobilinogen (0.2-1.0) EU/dL Ur Leukocyte Esterase (NEGATIVE) Urine HCG, Qual Urine Opiates Screen (NEGATIVE) Ur Oxycodone Screen (NEGATIVE) Urine Methadone Screen (NEGATIVE) Ur Barbiturates Screen (NEGATIVE) U Tricyclic Antidepress (NEGATIVE) Ur Phencyclidine Scrn (NEGATIVE) Ur Amphetamine Screen (NEGATIVE) U Methamphetamines Scrn (NEGATIVE) Urine MDMA Screen (NEGATIVE) U Benzodiazepines Scrn (NEGATIVE) Urine Cocaine Screen (NEGATIVE) U Marijuana (THC) Screen (NEGATIVE) Med Orders - Current: Current Medications Lactated Ringer's (Ringers, Lactated) 1,000 mls @ 125 mls/hr IV ASDIRECTED KADE Last Infusion: 10/01/19 11:38 Dose: 500 mls/hr Documented by: Promethazine HCl 25 mg/ Sodium (Chloride) 51 mls @ 100 mls/hr IV Q6H PRN PRN Reason: Nausea/Vomiting Last Admin: 10/01/19 04:57 Dose: 100 mls/hr Documented by: Pantoprazole Sodium (Protonix Iv) 40 mg IVPUSH Q24H KADE Last Admin: 09/30/19 22:28 Dose: 40 mg Documented by: Discontinued Medications Sodium Chloride (Normal Saline) 1,000 mls @ 500 mls/hr IV ASDIRECTED KADE Stop: 10/01/19 16:44 Last Admin: 09/30/19 17:35 Dose: 500 mls/hr Documented by: Promethazine HCl 25 mg/ Sodium (Chloride) 51 mls @ 100 mls/hr IV ONETIME ONE Stop: 09/30/19 15:15 Last Admin: 09/30/19 14:51 Dose: 100 mls/hr Documented by: Iopamidol (Isovue-370 (76%)) 100 ml IVPUSH ONETIME ONE Stop: 10/01/19 10:31 Last Admin: 10/01/19 10:44 Dose: 100 ml Documented by: - Exam General: Alert, Oriented, No Acute Distress Neck: Supple Lungs: Clear to Auscultation, Normal Respiratory Effort Cardiovascular: Regular Rate, Regular Rhythm GI/Abdominal Exam: Normal Bowel Sounds, Soft, No Distention, No Mass, Tender (RUQ) Back Exam: Normal Inspection, Full Range of Motion. No: CVA Tenderness (L), CVA Tenderness (R) Extremities: Normal Inspection, Normal Range of Motion, Non-Tender, No Pedal Edema, Normal Capillary Refill Neurological: No New Focal Deficit Psy/Mental Status: Alert, Normal Affect, Normal Mood Sepsis Event Note - Evaluation Sepsis Screening Result: No Definite Risk - Focused Exam Vital Signs: Vital Signs Temp Temp Pulse Resp BP Pulse Ox 10/01/19 08:00 97.8 F 60 16 148/94 H 100 10/01/19 04:00 98 F 82 18 152/78 H 97 10/01/19 00:00 98.2 F 66 18 142/62 H 99 Date Exam was Performed: 10/01/19 Time Exam was Performed: 15:30 - Problem List & Annotations (1) Abdominal pain SNOMED Code(s): 69670356 Code(s): R10.9 - UNSPECIFIED ABDOMINAL PAIN Status: Acute Priority: High Current Visit: No (2) Cannabinoid hyperemesis syndrome SNOMED Code(s): 727514516 Code(s): R11.2 - NAUSEA WITH VOMITING, UNSPECIFIED; F12.90 - CANNABIS USE, UNSPECIFIED, UNCOMPLICATED Status: Acute Current Visit: Yes - Problem List Review Problem List Initiated/Reviewed/Updated: Yes - My Orders Last 24 Hours: My Active Orders 09/30/19 Dinner Clear Liquid Diet [DIET] 09/30/19 20:15 Patient Status [ADT] Routine Oxygen Therapy [RC] .PRN Up ad Laurita [RC] .PRN Vital Signs [RC] 0000,0400,0800,1200,1600,2000 Lactated Ringers [Ringers, Lactated] 1,000 ml IV ASDIRECTED Promethazine [Phenergan] 25 mg Sodium Chloride 0.9% [Normal Saline] 50 ml IV Q6H Resuscitation Status Routine 09/30/19 20:16 Intake and Output [RC] 0600,1800 09/30/19 22:15 Pantoprazole [ProTONIX IV] 40 mg IVPUSH Q24H 10/01/19 10:09 Abdomen Pelvis w Cont [CT] Stat - Assessment Assessment:: Abdominal pain Cannabinoid Hyperemesis Syndrome - Plan Plan:: Did opt to proceed with CT abdomen/pelvis and repeat lab workup given ongoing uncontrolled abdominal pain and vomiting. CT abdomen/pelvis negative for any acute findings. Labs all unremarkable. Again, patient has also had normal gallbaldder US and HIDA scan. Urine drug screen dose show + for marijuana and benzos. Long discussion had with patient regarding past marijuana use and suspected cannabinoid hyperemesis syndrome, given current symptoms with no obvious cause. She does report that she has smoked daily for the past few years. Has never had an issue like this in the past. She reports smoking has made symptoms worse recently. Discussed that only treatment option for this is refraining from marijuana use. I again discussed with patient that recurrent vomiting can also cause GERD/gastritis, so I do recommend patient still continue with EGD on Friday as scheduled. Patient c/o right flank pain following CT scan. Will given another bolus of fluids to flush kidneys. Dilaudid 1 mg x 1. Discussed discharge home on oral antiemetics vs. additional night of observation stay. Patient would like to wait and see if back pain resolves and see how nausea is doing after trying clear liquids. Will reevaluate later this afternoon.
[2019-10-01] MEDS ORDERED: HYDROmorphone 1 MG/ML Syringe IVPUSH ONE (11:46)
[2019-10-01] MEDS ORDERED: Lactated Ringers 1,000 ML IV SCH (12:00)
[2019-10-01] MEDS ORDERED: HYDROmorphone 1 MG/ML Syringe IVPUSH PRN (15:41)
[2019-10-01] MEDS: Pantoprazole 40 MG Vial IVPUSH SCH (22:13)
[2019-10-02 00:05] VITALS: PULSE 60
[2019-10-02 08:41] VITALS: BP 129/73
[2019-10-02] MEDS: Promethazine 25 MG in Sodium Chloride 0.9% 50 ML IV PRN (08:49)
[2019-10-02] MEDS ORDERED: Ondansetron 4 MG/2 ML SDV IVPUSH PRN (10:18)
[2019-10-02] MEDS ORDERED: Metoclopramide 10 MG/2 ML SDV IVPUSH PRN (12:06)
[2019-10-02] MEDS ORDERED: Take Home: Promethazine 25 MG, 4 Tab Pack PO ONE (15:03)
--- NOTE | 2019-10-02 15:09 | PCM.DCSUM1 ---
Discharge Summary - Discharge Data Discharge Date: 10/02/19 Discharge Disposition: Home, Self-Care 01 Condition: Good - Referral to Home Health Primary Care Physician: Angy Borja PA-C - Discharge Diagnosis/Problem(s) (1) Abdominal pain SNOMED Code(s): 09682845 ICD Code: R10.9 - UNSPECIFIED ABDOMINAL PAIN Status: Acute Priority: High (2) Cannabinoid hyperemesis syndrome SNOMED Code(s): 603482597 ICD Code: R11.2 - NAUSEA WITH VOMITING, UNSPECIFIED; F12.90 - CANNABIS USE, UNSPECIFIED, UNCOMPLICATED Status: Acute - Patient Summary/Data Hospital Course: Lori is a 23 yo female who was admitted observation to the hospital for recurrent nausea, vomiting, and abdominal pain. Had been seen for this on multiple other occasions. Had essentially negative workup, including labs, abdominal US, and HIDA scan. Was started on Protonix and carafate, which also did not improve symptoms. Did opt to CT abdomen/pelvis given recurrence of issue with no identifiable cause. CT abdomen pelvis negative. DId have long discussion with patient regarding marijuana use and my concerns this could perhaps be causing recurrent vomiting. She did report daily use for at least the past 2 years. Ultimately, patient continued to have nausea, vomiting, and right sided abdominal pain throughout stay. She was given IV phenergan and IVF during stay, which helped nausea/vomiting but was not able to eliminate it. She was started on IV protonix during stay as well. She ended up wanting to discharge home, which I felt was reasonable as we had no causative reversible issue. She is advised to refrain from marijuana use to see if symptoms improve with this. Is also advised to follow up as scheduled Friday for her EGD. - Patient Instructions Diet: Usual Diet as Tolerated Activity: As Tolerated Notify Provider of: Fever, Increased Pain, Nausea and/or Vomiting (Worsening) - Discharge Plan *PRESCRIPTION DRUG MONITORING PROGRAM REVIEWED*: Not Applicable *COPY OF PRESCRIPTION DRUG MONITORING REPORT IN PATIENT RACIEL: Not Applicable Prescriptions/Med Rec: Sucralfate [Carafate] 1 gm PO QIDACANDBED #180 tablet Promethazine [Phenergan] 25 mg PO Q6H PRN #20 tab PRN Reason: Vomiting Pantoprazole Sodium [Protonix] 2 tab PO DAILY #30 tab Home Medications: Home Meds Ondansetron [Zofran ODT] 4 mg PO Q6H PRN 09/29/19 [History] Pantoprazole Sodium [Protonix] 2 tab PO DAILY #30 tab 10/02/19 [Rx] Promethazine [Phenergan] 25 mg PO Q6H PRN #20 tab 10/02/19 [Rx] Sucralfate [Carafate] 1 gm PO QIDACANDBED #180 tablet 10/02/19 [Rx] Patient Handouts: Nausea and Vomiting, Adult, [id number] Referrals: Angy Borja PA-C [Primary Care Provider] - - Discharge Summary/Plan Comment DC Time >30 min.: No - General Info Date of Service: 10/02/19 Admission Dx/Problem (Free Text: Admission Diagnosis/Problem Admission Diagnosis/Problem Abdominal pain Functional Status: Reports: Urinating. Denies: Pain Controlled, Tolerating Diet, New Symptoms - Review of Systems General: Denies: Fever, Weakness, Fatigue, Chills, Appetite Pulmonary: Reports: No Symptoms Cardiovascular: Reports: No Symptoms Gastrointestinal: Reports: Abdominal Pain, Decreased Appetite, Nausea, Vomiting. Denies: Diarrhea, Hematochezia, Melena Genitourinary: Reports: No Symptoms Psychiatric: Reports: No Symptoms - Patient Data Vitals - Most Recent: Last Vital Signs Temp 98.1 F 10/02/19 08:00 Pulse 60 10/02/19 08:00 Resp 16 10/02/19 08:00 BP 129/73 10/02/19 08:00 Pulse Ox 99 10/02/19 08:00 Weight - Most Recent: 222 lb 1.6 oz I&O - Last 24 hours: Intake & Output 10/02/19 10/02/19 10/02/19 06:59 14:59 22:59 Intake Total 500 450 Output Total 1750 200 Balance -1250 250 Med Orders - Current: Current Medications Hydromorphone HCl (Dilaudid) 1 mg IVPUSH Q3H PRN PRN Reason: Pain Last Admin: 10/01/19 16:17 Dose: 1 mg Documented by: Lactated Ringer's (Ringers, Lactated) 1,000 mls @ 125 mls/hr IV ASDIRECTED KADE Last Admin: 10/01/19 22:17 Dose: 125 mls/hr Documented by: Promethazine HCl 25 mg/ Sodium (Chloride) 51 mls @ 100 mls/hr IV Q6H PRN PRN Reason: Nausea/Vomiting Last Admin: 10/02/19 08:49 Dose: 100 mls/hr Documented by: Metoclopramide HCl (Reglan) 10 mg IVPUSH Q6H PRN PRN Reason: Nausea Last Admin: 10/02/19 12:25 Dose: 10 mg Documented by: Ondansetron HCl (Zofran) 4 mg IVPUSH Q6H PRN PRN Reason: Nausea Last Admin: 10/02/19 10:52 Dose: 4 mg Documented by: Pantoprazole Sodium (Protonix Iv) 40 mg IVPUSH Q24H KADE Last Admin: 10/01/19 22:13 Dose: 40 mg Documented by: Promethazine HCl (Take Home: Promethazine 25 Mg, 4 Tab Pack) 2 packet PO ONETIME ONE Stop: 10/02/19 15:04 Discontinued Medications Hydromorphone HCl (Dilaudid) 1 mg IVPUSH ONETIME ONE Stop: 10/01/19 11:47 Last Admin: 10/01/19 12:12 Dose: 1 mg Documented by: Sodium Chloride (Normal Saline) 1,000 mls @ 500 mls/hr IV ASDIRECTED [facility] Stop: 10/01/19 16:44 Last Admin: 09/30/19 17:35 Dose: 500 mls/hr Documented by: Promethazine HCl 25 mg/ Sodium (Chloride) 51 mls @ 100 mls/hr IV ONETIME ONE Stop: 09/30/19 15:15 Last Admin: 09/30/19 14:51 Dose: 100 mls/hr Documented by: Lactated Ringer's (Ringers, Lactated) 1,000 mls @ 500 mls/hr IV ASDIRECTED [facility] Stop: 10/01/19 13:59 Last Admin: 10/01/19 12:49 Dose: 500 mls/hr Documented by: Iopamidol (Isovue-[id number] (76%)) 100 ml IVPUSH ONETIME ONE Stop: 10/01/19 10:31 Last Admin: 10/01/19 10:44 Dose: 100 ml Documented by: - Exam General: Reports: Alert, Oriented, Mild Distress Neck: Reports: Supple Lungs: Reports: Clear to Auscultation, Normal Respiratory Effort Cardiovascular: Reports: Regular Rate, Regular Rhythm GI/Abdominal Exam: Normal Bowel Sounds, Soft, No Organomegaly, No Distention, No Abnormal Bruit, No Mass, Pelvis Stable, Tender (RUQ & RLQ) Back Exam: Reports: Normal Inspection, Full Range of Motion. Denies: CVA Tenderness (L), CVA Tenderness (R) Extremities: Normal Inspection, Normal Range of Motion, Non-Tender, No Pedal Edema, Normal Capillary Refill Skin: Reports: Warm, Dry, Intact Neurological: Reports: No New Focal Deficit
[2019-10-02] MEDS ORDERED: Promethazine 25 MG Tab PO ONE (15:24)
[2019-10-02] MEDS ORDERED: Sucralfate 1 GM Tab PO ONE (15:51)
[2019-10-02] MEDS ORDERED: Sucralfate Suspension 1 GM/10 ML Cup PO SCH (16:00)
== END 2019-10-02 15:25 | disposition home or self-care (01) ==
LOC: CC.ACU 14:08 → CC.MS 19:40 → UNDOADMOB 19:40 → CC.MS 20:15 → UNDODISOB 10-02 15:25
PROVIDERS: ADMIT Nurse Practitioner Family; ATTEND Family Medicine
DX: R10.11 Right upper quadrant pain (principal); R11.2 Nausea with vomiting, unspecified; F12.10 Cannabis abuse, uncomplicated; K21.9 Gastro-esophageal reflux disease without esophagitis; F17.210 Nicotine dependence, cigarettes, uncomplicated; Z79.899 Other long term (current) drug therapy
CPT/HCPCS: 36415; 74177; 80053; 80305-QW; 81003; 81025; 82150; 83690; 85025; 86140; 96361; 96365; 96366; 96375; 96376; A9270-GY; C9113; G0378; J1170; J2405; J2550; J2765; J7030; J7050; J7120; Q9967

== ENCOUNTER → 2019-10-04 | Day surgery (SDC) | payer MEDICAID ==
[~2019-10-04] MED LIST: Benzocaine 20% Oral Spray 59.2 ML Canister MUCMEM ONE; Lactated Ringers 1,000 ML IV SCH; Lactated Ringers 1,000 ML ONE; Meperidine 50 MG/ML Vial IV ONE; Meperidine PF 50 MG/ML Syringe IV ONE; Midazolam 1 MG/ML 2 ML SDV IV ONE
[2019-10-04 10:23] VITALS: BP 124/60; PULSE 100
--- NOTE | 2019-10-05 14:16 | OR ---
DATE OF OPERATION: 10/04/2019 PREOPERATIVE DIAGNOSIS: RIGHT UPPER QUADRANT PAIN. POSTOPERATIVE DIAGNOSIS: RIGHT UPPER QUADRANT PAIN. SURGEON: Klaus Dougherty MD PROCEDURE: DIAGNOSTIC EGD WITH BIOPSIES X2, JAREK. ANESTHESIA: Conscious sedation with 6 mg of Versed, 50 mg of Demerol with continuous O2 sat monitoring and nurse assist, sats remained above 90 for the entire procedure. COMPLICATIONS: None. SPECIMEN: 1. Antral biopsy x2. 2. Antral JAREK. FINDINGS: 1. Full-length EGD. 2. Minimal antral gastritis with 2 small minimal erosions. RECOMMENDATIONS: Ongoing medical followup with Angy Borja. INDICATIONS: The patient had been having some persistent right upper quadrant pain. I believe she has had a gallbladder ultrasound which was negative. HIDA scan may be pending. She was sent by Angy for a diagnostic EGD. DESCRIPTION OF PROCEDURE: The patient was prepped and draped, placed in the left lateral decubitus position. A lubricated Olympus gastroscope was inserted over a bit, advanced to cricopharyngeus area, and easily intubated into the esophagus. The esophageal lining was benign in its entire course. The Z-line was crisp and sharp at 40 cm. There was spontaneous reflux, but no distal esophagitis, stricturing, ulceration, or Gates's changes. The scope was advanced into the stomach, through the pylorus, and into the second portion of the duodenum. This and the duodenal bulb were completely benign. The scope was brought back into the stomach. Retroflexion was very hard as patient had a lot of belching during the test, it was hard to keep air in her stomach to retroflex. Direct visualization of the antrum showed some very minimal midportion gastritis with 2 small minimal erosions. I did biopsy both these areas and did a CLOtest. There were no significant signs of peptic ulcer disease, polyp, mass, or otherwise. Upon slow withdrawal of the scope, we were able to get a good visualization of the rest of the fundus throughout the entire stomach along with the upper part of the cardia, could not retroflex in her, but no gross abnormalities were seen. I think we got an excellent view. Air was suctioned from the stomach and the scope was removed without complication. VINCE/SAMMIE /[id number]
== END ==
LOC: CC.SDS 08:16
PROVIDERS: ATTEND Family Medicine
DX: K29.50 Unspecified chronic gastritis without bleeding (principal); K25.9 Gastric ulcer, unspecified as acute or chronic, without hemorrhage or perforation; K21.9 Gastro-esophageal reflux disease without esophagitis; K31.89 Other diseases of stomach and duodenum; F17.210 Nicotine dependence, cigarettes, uncomplicated; Z11.59 Encounter for screening for other viral diseases; Z79.899 Other long term (current) drug therapy
CPT/HCPCS: 87081; J2175; J2250; J7120; U0002

== ENCOUNTER 2020-04-03 09:19 | Emergency (ER) | payer MEDICAID ==
[2020-04-03 09:31] VITALS: BP 145/97; PULSE 57
[2020-04-03] MEDS ORDERED: Promethazine 25 MG in Sodium Chloride 0.9% 100 ML IV ONE (09:50)
[2020-04-03] MEDS ORDERED: Sodium Chloride 0.9% 1,000 ML IV SCH (10:00)
[2020-04-03 10:13] LABS: CHLORIDE,CL 105 mEq/L (98-106); SODIUM,NA 141 mEq/L (136-145)
--- NOTE | 2020-04-03 12:07 | EDM.PDOC ---
ED HPI GENERAL MEDICAL PROBLEM - General Chief Complaint: General Stated Complaint: THROWING UP Time Seen by Provider: 04/03/20 09:50 Source of Information: Reports: Patient History Limitations: Reports: No Limitations - History of Present Illness INITIAL COMMENTS - FREE TEXT/NARRATIVE: STates that she has been vomiting since Friday. Was drinking on and everytime she drinks she ends up getting sick and vomiting for days after. Continues to smoke marajuana on a daily basis and has been told in the past that this may also be contributing to her vomitiing episodes that she has been having and she states that she has cut down on how much she smokes. She states that recently every times she drinks alcohol this has been happening. She has phenergan at home and states that she has been using it but has not helped. She has not been able to keep any food down but has been keeping some water down at times. No fever or diarrhea with it. Onset: Gradual Location: Reports: Abdomen Associated Symptoms: Reports: Nausea/Vomiting. Denies: Fever/Chills Abdomen Pain Score (Numeric/FACES): 6 - Related Data Allergies Allergy/AdvReac Type Severity Reaction Status Date / Time No Known Allergies Allergy Verified 04/03/20 09:34 Home Meds: Home Meds Pantoprazole Sodium [Protonix] 20 mg PO DAILY 04/03/20 [History] Promethazine [Phenergan] 25 mg PO Q4H PRN 04/03/20 [History] Sucralfate 1 gm PO DAILY 04/03/20 [History] Past Medical History - Past Health History Medical/Surgical History: Denies Medical/Surgical History HEENT History: Reports: Impaired Vision Gastrointestinal History: Reports: GERD, PUD Genitourinary History: Reports: None PIZZA COOK History: Reports: , Other (See Below) Other PIZZA COOK History: molar Neurological History: Reports: Headaches, Chronic Hematologic History: Reports: None - Past Surgical History HEENT Surgical History: Reports: None GI Surgical History: Reports: None Female Surgical History: Reports: D&C Social & Family History - Family History Family Medical History: No Pertinent Family History - Tobacco Use Tobacco Use Status *Q: Current Every Day Tobacco User Years of Tobacco use: 6 Packs/Tins Daily: 0.5 - Caffeine Use Caffeine Use: Reports: None - Alcohol Use Date of Last Drink: 03/30/20 - Recreational Drug Use Recreational Drug Use: Yes Drug Use in Last 12 Months: Yes Recreational Drug Type: Reports: Marijuana/Hashish Recreational Drug Use Frequency: Daily Recreational Drug Last Use: marijuana - Living Situation & Occupation Living situation: Reports: Single, with Significant Other ED ROS GENERAL - Review of Systems Review Of Systems: See Below Constitutional: Denies: Fever, Chills Respiratory: Reports: No Symptoms Cardiovascular: Reports: No Symptoms GI/Abdominal: Reports: Abdominal Pain, Nausea, Vomiting. Denies: Constipation, Diarrhea : Reports: No Symptoms ED EXAM, GENERAL - Physical Exam Exam: See Below Exam Limited By: No Limitations General Appearance: Alert, WD/WN, Moderate Distress Ears: Normal External Exam, Normal Canal, Normal TMs Throat/Mouth: Normal Inspection, Normal Oropharynx Head: Atraumatic, Normocephalic Neck: Normal Inspection, Supple, Non-Tender Respiratory/Chest: No Respiratory Distress, Lungs Clear Cardiovascular: Regular Rate, Rhythm, No Edema GI/Abdominal: Normal Bowel Sounds, Soft, Tender (diffusely tender with palpation.) Extremities: Normal Inspection Neurological: Alert, Oriented Skin Exam: Warm, Dry, Intact Course - Vital Signs Last Recorded V/S: Last Vital Signs Temp 96.8 F L 04/03/20 09:26 Pulse 57 L 04/03/20 09:26 Resp 20 04/03/20 09:26 BP 145/97 H 04/03/20 09:26 Pulse Ox 97 04/03/20 09:26 - Orders/Labs/Meds Labs: Laboratory Tests 04/03/20 04/03/20 04/03/20 Range/Units 09:56 09:56 09:56 WBC 11.6 H (5.0-10.0) 10^3/uL RBC 4.92 (4.00-5.50) 10^6/uL Hgb 15.2 (12.0-16.0) g/dL Hct 44.1 (37.0-47.0) % MCV 89.6 (82.0-94.0) fL MCH 30.9 (27.0-32.0) pg MCHC 34.5 (33.0-38.0) g/dL RDW Coeff of Kimberlee 13.1 (11.0-15.0) % Plt Count 238 (150-400) 10^3/uL Neut % (Auto) 78.5 (35-85) % Lymph % (Auto) 13.7 (10-55) % [place] % (Auto) 5.0 (0-16) % Eos % (Auto) 2.5 (0-5) % Baso % (Auto) 0.3 (0-3) % Neut # (Auto) 9.14 H (1.80-7.00) 10^3/uL Lymph # (Auto) 1.59 (1.00-4.80) 10^3/uL [place] # (Auto) 0.58 (0.00-0.80) 10^3/uL Eos # (Auto) 0.29 (0.00-0.45) 10^3/uL Baso # (Auto) 0.03 10^3/uL Sodium 141 (136-145) mEq/L Potassium 4.2 (3.5-5.0) mEq/L Chloride 105 (98-106) mEq/L Carbon Dioxide 29 (21-32) mmol/L BUN 13 (7-18) mg/dL Creatinine 0.8 (0.6-1.0) mg/dL Est Cr Clr Drug Dosing 117.26 mL/min Estimated GFR (MDRD) > 60 (>=60) mL/min Glucose 114 H (75-99) mg/dL Calcium 8.9 (8.4-10.1) mg/dL Total Bilirubin 0.2 (0.0-1.0) mg/dL AST 14 L (15-37) U/L ALT 20 (12-78) U/L Alkaline Phosphatase 72 (46-116) U/L C-Reactive Protein 0.6 (0.2-0.8) mg/dL Total Protein 7.3 (6.4-8.2) g/dL Albumin 3.7 (3.4-5.0) g/dL Urine Color Yellow (YELLOW) Urine Appearance Turbid (CLEAR) Urine pH 8.0 (4.5-8.0) Ur Specific [place] 1.025 H (1.003-1.020) Urine Protein Negative (NEGATIVE) mg/dL Urine Glucose (UA) Negative (NEGATIVE) mg/dL Urine Ketones Negative (NEGATIVE) mg/dL Urine Occult Blood Negative (NEGATIVE) Urine Nitrite Negative (NEGATIVE) Urine Bilirubin Negative (NEGATIVE) Urine Urobilinogen 0.2 (0.2-1.0) EU/dL Ur Leukocyte Esterase Trace H (NEGATIVE) Urine RBC 0-5 (0-5) /HPF Urine WBC 0-5 (0-5) /HPF Ur Squamous Epith Cells Few H (NOT SEEN) /HPF Amorphous Sediment Many H (NOT SEEN) /HPF Meds: Medications Discontinued Medications Generic Name Dose Route Start Last Admin Trade Name Freq PRN Reason Stop Dose Admin Sodium Chloride 1,000 mls @ 500 mls/hr 04/03/20 10:00 Normal Saline IV ASDIRECTED KADE Promethazine HCl 25 mg/ Sodium 101 mls @ 400 mls/hr 04/03/20 09:50 04/03/20 09:54 Chloride IV 04/03/20 10:05 400 mls/hr ONETIME ONE Administration - Re-Assessments/Exams Free Text/Narrative Re-Assessment/Exam: 04/03/20 1200 IV infused and phenergan has now controlled the vomiting. She has been sleeping. No further vomiting. LAbs are stable. Will discharge. Discussed that she needs to stop drinking alcohol and marajuana as those seem to be her triggers for the vomiting. Departure - Departure Time of Disposition: 12:06 Disposition: Home, Self-Care 01 Condition: Good Clinical Impression: Cannabinoid hyperemesis syndrome Vomiting Qualifiers: Vomiting type: unspecified Vomiting Intractability: intractable Nausea presence: with nausea Qualified Code(s): R11.2 - Nausea with vomiting, u nspecified - Discharge Information *PRESCRIPTION DRUG MONITORING PROGRAM REVIEWED*: Not Applicable *COPY OF PRESCRIPTION DRUG MONITORING REPORT IN PATIENT RACIEL: Not Applicable Referrals: Angy Borja PA-C [Primary Care Provider] - Forms: ED Department Discharge Additional Instructions: avoid alcohol and marijuana push fluids as much as possible use the promethazine that you have at home for the nausea Sepsis Event Note (ED) - Evaluation Sepsis Screening Result: No Definite Risk - Problem List & Annotations (1) Vomiting SNOMED Code(s): 112105561 Code(s): R11.10 - VOMITING, UNSPECIFIED Status: Acute Priority: High Qualifiers: Vomiting type: unspecified Vomiting Intractability: intractable Nausea presence: with nausea Qualified Code(s): R11.2 - Nausea with vomiting, unspecified (2) Cannabinoid hyperemesis syndrome SNOMED Code(s): 545462335 Code(s): R11.2 - NAUSEA WITH VOMITING, UNSPECIFIED; F12.90 - CANNABIS USE, UNSPECIFIED, UNCOMPLICATED Status: Acute Priority: Medium - Problem List Review Problem List Initiated/Reviewed/Updated: Yes
== END 2020-04-03 12:15 | disposition home or self-care (01) ==
LOC: CC.ED 09:19
DX: R11.2 Nausea with vomiting, unspecified (principal); F12.90 Cannabis use, unspecified, uncomplicated; K21.9 Gastro-esophageal reflux disease without esophagitis; F17.210 Nicotine dependence, cigarettes, uncomplicated; Z79.899 Other long term (current) drug therapy
CPT/HCPCS: 36415; 80053; 81001; 85025; 86140; 96374; 99284-25; J2550

== ENCOUNTER 2020-06-13 13:27 | Emergency (ER) | payer MEDICAID ==
[2020-06-13 13:42] VITALS: BP 133/91; PULSE 100
--- NOTE | 2020-06-13 14:08 | EDM.PDOC ---
ED HPI GENERAL MEDICAL PROBLEM - General Chief Complaint: General Stated Complaint: REALLY COLD/NAUSEA Time Seen by Provider: 06/13/20 14:05 Source of Information: Reports: Patient History Limitations: Reports: No Limitations - History of Present Illness INITIAL COMMENTS - FREE TEXT/NARRATIVE: Lori is a 24 yo female who presents to the ED with c/o malaise and generalized abdominal pain. She reports she woke up this morning and has been cold, clammy and had abdominal pain. Reports temp of 94 deg. She reports she has vomited a few times. She reports she feels very fatigued and can hardly keep her eyes open. She does report she used marijuana last evening. Denies any recent ETOH or other drug use. She reports LBM was this morning. Reports LMP last week. Denies any chance of . Mother was concerned as they found suicidal txt from the patient. She reports she is not necessarily suicidal, but is just sick of waking up every morning feeling like "crap." She has had some chronic nausea/vomiting. She reports that she was started on Lexapro about 3 weeks ago. For the last 2 weeks she has had nausea in the morning. Onset: Today Duration: Getting Worse Location: Reports: Abdomen Quality: Reports: Sharp Severity: Severe Associated Symptoms: Reports: Cough, Diaphoresis, Fever/Chills (no fever), Loss of Appetite, Malaise, Nausea/Vomiting. Denies: Confusion, Chest Pain, cough w sputum, Headaches, Rash, Seizure, Shortness of Breath, Syncope, Weakness - Related Data Allergies Allergy/AdvReac Type Severity Reaction Status Date / Time No Known Allergies Allergy Verified 06/13/20 13:43 Home Meds: Home Meds Pantoprazole Sodium [Protonix] 20 mg PO DAILY 04/03/20 [History] Magnesium 250 mg PO DAILY #14 tablet 06/13/20 [Rx] Ondansetron [Zofran] 4 mg PO Q6H PRN #30 tab 06/13/20 [Rx] Past Medical History - Past Health History Medical/Surgical History: Denies Medical/Surgical History HEENT History: Reports: Impaired Vision Gastrointestinal History: Reports: GERD, PUD Genitourinary History: Reports: None 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: , Other (See Below) Other TOLL BOOTH OPERATOR History: molar Neurological History: Reports: Headaches, Chronic Psychiatric History: Reports: Anxiety Hematologic History: Reports: None - Past Surgical History HEENT Surgical History: Reports: None GI Surgical History: Reports: None Female Surgical History: Reports: D&C Social & Family History - Family History Family Medical History: No Pertinent Family History - Tobacco Use Tobacco Use Status *Q: Current Every Day Tobacco User Years of Tobacco use: 8 Packs/Tins Daily: 0.5 - Caffeine Use Caffeine Use: Reports: Coffee, Soda - Recreational Drug Use Recreational Drug Use: Yes Recreational Drug Type: Reports: Marijuana/Hashish Recreational Drug Use Frequency: Daily Recreational Drug Last Use: "yesterday" - Living Situation & Occupation Living situation: Reports: Single, with Significant Other ED ROS GENERAL - Review of Systems Review Of Systems: Comprehensive ROS is negative, except as noted in HPI. ED EXAM, GENERAL - Physical Exam Exam: See Below Exam Limited By: No Limitations General Appearance: Alert, WD/WN, No Apparent Distress, Other (Tired) Eye Exam: Bilateral Eye: EOMI, PERRL Throat/Mouth: Normal Inspection, Normal Lips, Normal Teeth, Normal Gums, Normal Oropharynx, Normal Voice, No Airway Compromise Head: Atraumatic, Normocephalic Neck: Normal Inspection, Supple, Non-Tender, Full Range of Motion Respiratory/Chest: No Respiratory Distress, Lungs Clear, Normal Breath Sounds, No Accessory Muscle Use, Chest Non-Tender Cardiovascular: Normal Peripheral Pulses, Regular Rate, Rhythm, No Edema, No Gallop, No JVD, No Murmur, No Rub GI/Abdominal: Normal Bowel Sounds, Soft, No Distention, Guarding, Tender (generalized ) Back Exam: Normal Inspection, Full Range of Motion. No: CVA Tenderness (L), CVA Tenderness (R) Extremities: Normal Inspection, Normal Range of Motion, Non-Tender, Normal Capillary Refill, No Pedal Edema Neurological: Oriented, Normal Cognition, No Motor/Sensory Deficits, Other (Droqsy) Psychiatric: Flat Affect Skin Exam: Pallor Lymphatic: No Adenopathy Course - Vital Signs Last Recorded V/S: Last Vital Signs Temp 95.9 F L 06/13/20 13:35 Pulse 100 06/13/20 13:35 Resp 20 06/13/20 13:35 BP 133/91 H 06/13/20 13:35 Pulse Ox 96 06/13/20 13:35 - Orders/Labs/Meds Orders: Active Orders 24 hr Category Date Time Status Abdomen Pelvis w Cont [CT] Stat Exams 06/13/20 14:13 Taken Lactated Ringers [Ringers, Lactated] 1,000 ml Med 06/13/20 14:15 Active IV ASDIRECTED Ondansetron [Zofran] Med 06/13/20 14:07 Active 4 mg IVPUSH Q6H PRN Medication Orders Lactated Ringer's (Ringers, Lactated) 1,000 mls @ 999 mls/hr IV ASDIRECTED KADE Last Admin: 06/13/20 14:36 Dose: 999 mls/hr Documented by: VÍCTOR Ondansetron HCl (Ondansetron 4 Mg/2 Ml Sdv) 4 mg IVPUSH Q6H PRN PRN Reason: Nausea Last Admin: 06/13/20 14:32 Dose: 4 mg Documented by: VÍCTOR Labs: Laboratory Tests 06/13/20 06/13/20 06/13/20 Range/Units 13:48 13:48 14:01 WBC 13.9 H (5.0-10.0) 10^3/uL RBC 4.73 (4.00-5.50) 10^6/uL Hgb 14.8 (12.0-16.0) g/dL Hct 42.7 (37.0-47.0) % MCV 90.3 (82.0-94.0) fL MCH 31.3 (27.0-32.0) pg MCHC 34.7 (33.0-38.0) g/dL RDW Coeff of Kimberlee 13.3 (11.0-15.0) % Plt Count 262 (150-400) 10^3/uL Neut % (Auto) 90.4 H (35-85) % Lymph % (Auto) 6.9 L (10-55) % [place] % (Auto) 2.4 (0-16) % Eos % (Auto) 0.2 (0-5) % Baso % (Auto) 0.1 (0-3) % Neut # (Auto) 12.52 H (1.80-7.00) 10^3/uL Lymph # (Auto) 0.95 L (1.00-4.80) 10^3/uL [place] # (Auto) 0.33 (0.00-0.80) 10^3/uL Eos # (Auto) 0.03 (0.00-0.45) 10^3/uL Baso # (Auto) 0.02 10^3/uL Sodium (136-145) mEq/L Potassium (3.5-5.0) mEq/L Chloride (98-106) mEq/L Carbon Dioxide (21-32) mmol/L BUN (7-18) mg/dL Creatinine (0.6-1.0) mg/dL Est Cr Clr Drug Dosing mL/min Estimated GFR (MDRD) (>=60) mL/min Glucose (75-99) mg/dL Calcium (8.4-10.1) mg/dL Magnesium (1.8-2.4) mg/dL Total Bilirubin (0.0-1.0) mg/dL AST (15-37) U/L ALT (12-78) U/L Alkaline Phosphatase (46-116) U/L Creatine Kinase (21-215) U/L C-Reactive Protein (0.2-0.8) mg/dL Total Protein (6.4-8.2) g/dL Albumin (3.4-5.0) g/dL Amylase (25-115) U/L Lipase (73-393) U/L Urine Color Yellow (YELLOW) Urine Appearance Slightly cloudy (CLEAR) Urine pH 8.5 H (4.5-8.0) Ur Specific [place] >= 1.030 H (1.003-1.020) Urine Protein Negative (NEGATIVE) mg/dL Urine Glucose (UA) Negative (NEGATIVE) mg/dL Urine Ketones 80 H (NEGATIVE) mg/dL Urine Occult Blood Negative (NEGATIVE) Urine Nitrite Negative (NEGATIVE) Urine Bilirubin Negative (NEGATIVE) Urine Urobilinogen 0.2 (0.2-1.0) EU/dL Ur Leukocyte Esterase Trace H (NEGATIVE) Urine RBC 0-5 (0-5) /HPF Urine WBC 5-10 H (0-5) /HPF Ur Epithelial Cells Moderate H (NOT SEEN) /HPF Amorphous Sediment Occasional H (NOT SEEN) /HPF Urine Bacteria Few H (NOT SEEN) /HPF Urinalysis Comment Urine HCG, Qual Urine Opiates Screen Negative (NEGATIVE) Ur Oxycodone Screen Negative (NEGATIVE) Urine Methadone Screen Negative (NEGATIVE) Ur Barbiturates Screen Negative (NEGATIVE) U Tricyclic Antidepress Negative (NEGATIVE) Ur Phencyclidine Scrn Negative (NEGATIVE) Ur Amphetamine Screen Negative (NEGATIVE) U Methamphetamines Scrn Negative (NEGATIVE) Urine MDMA Screen Negative (NEGATIVE) U Benzodiazepines Scrn Negative (NEGATIVE) Urine Cocaine Screen Negative (NEGATIVE) U Marijuana (THC) Screen Positive H (NEGATIVE) Influenza Type A RNA (NEGATIVE) Influenza Type B RNA (NEGATIVE) SARS-CoV-2 RNA ([place]) (NEGATIVE) 06/13/20 06/13/20 06/13/20 Range/Units 14:01 14:01 14:14 WBC (5.0-10.0) 10^3/uL RBC (4.00-5.50) 10^6/uL Hgb (12.0-16.0) g/dL Hct (37.0-47.0) % MCV (82.0-94.0) fL MCH (27.0-32.0) pg MCHC (33.0-38.0) g/dL RDW Coeff of Kimberlee (11.0-15.0) % Plt Count (150-400) 10^3/uL Neut % (Auto) (35-85) % Lymph % (Auto) (10-55) % [place] % (Auto) (0-16) % Eos % (Auto) (0-5) % Baso % (Auto) (0-3) % Neut # (Auto) (1.80-7.00) 10^3/uL Lymph # (Auto) (1.00-4.80) 10^3/uL [place] # (Auto) (0.00-0.80) 10^3/uL Eos # (Auto) (0.00-0.45) 10^3/uL Baso # (Auto) 10^3/uL Sodium 142 (136-145) mEq/L Potassium 4.1 (3.5-5.0) mEq/L Chloride 103 (98-106) mEq/L Carbon Dioxide 26 (21-32) mmol/L BUN 13 (7-18) mg/dL Creatinine 0.7 (0.6-1.0) mg/dL Est Cr Clr Drug Dosing 134.01 mL/min Estimated GFR (MDRD) > 60 (>=60) mL/min Glucose 126 H (75-99) mg/dL Calcium 9.5 (8.4-10.1) mg/dL Magnesium 1.6 L (1.8-2.4) mg/dL Total Bilirubin 0.8 (0.0-1.0) mg/dL AST 15 (15-37) U/L ALT 24 (12-78) U/L Alkaline Phosphatase 66 (46-116) U/L Creatine Kinase 48 (21-215) U/L C-Reactive Protein < 0.2 L (0.2-0.8) mg/dL Total Protein 7.6 (6.4-8.2) g/dL Albumin 4.0 (3.4-5.0) g/dL Amylase (25-115) U/L Lipase (73-393) U/L Urine Color (YELLOW) Urine Appearance (CLEAR) Urine pH (4.5-8.0) Ur Specific [place] (1.003-1.020) Urine Protein (NEGATIVE) mg/dL Urine Glucose (UA) (NEGATIVE) mg/dL Urine Ketones (NEGATIVE) mg/dL Urine Occult Blood (NEGATIVE) Urine Nitrite (NEGATIVE) Urine Bilirubin (NEGATIVE) Urine Urobilinogen (0.2-1.0) EU/dL Ur Leukocyte Esterase (NEGATIVE) Urine RBC (0-5) /HPF Urine WBC (0-5) /HPF Ur Epithelial Cells (NOT SEEN) /HPF Amorphous Sediment (NOT SEEN) /HPF Urine Bacteria (NOT SEEN) /HPF Urinalysis Comment Urine HCG, Qual Negative Urine Opiates Screen (NEGATIVE) Ur Oxycodone Screen (NEGATIVE) Urine Methadone Screen (NEGATIVE) Ur Barbiturates Screen (NEGATIVE) U Tricyclic Antidepress (NEGATIVE) Ur Phencyclidine Scrn (NEGATIVE) Ur Amphetamine Screen (NEGATIVE) U Methamphetamines Scrn (NEGATIVE) Urine MDMA Screen (NEGATIVE) U Benzodiazepines Scrn (NEGATIVE) Urine Cocaine Screen (NEGATIVE) U Marijuana (THC) Screen (NEGATIVE) Influenza Type A RNA Negative (NEGATIVE) Influenza Type B RNA Negative (NEGATIVE) SARS-CoV-2 RNA ([place]) Negative (NEGATIVE) 06/13/20 Range/Units 14:22 WBC (5.0-10.0) 10^3/uL RBC (4.00-5.50) 10^6/uL Hgb (12.0-16.0) g/dL Hct (37.0-47.0) % MCV (82.0-94.0) fL MCH (27.0-32.0) pg MCHC (33.0-38.0) g/dL RDW Coeff of Kimberlee (11.0-15.0) % Plt Count (150-400) 10^3/uL Neut % (Auto) (35-85) % Lymph % (Auto) (10-55) % [place] % (Auto) (0-16) % Eos % (Auto) (0-5) % Baso % (Auto) (0-3) % Neut # (Auto) (1.80-7.00) 10^3/uL Lymph # (Auto) (1.00-4.80) 10^3/uL [place] # (Auto) (0.00-0.80) 10^3/uL Eos # (Auto) (0.00-0.45) 10^3/uL Baso # (Auto) 10^3/uL Sodium (136-145) mEq/L Potassium (3.5-5.0) mEq/L Chloride (98-106) mEq/L Carbon Dioxide (21-32) mmol/L BUN (7-18) mg/dL Creatinine (0.6-1.0) mg/dL Est Cr Clr Drug Dosing mL/min Estimated GFR (MDRD) (>=60) mL/min Glucose (75-99) mg/dL Calcium (8.4-10.1) mg/dL Magnesium (1.8-2.4) mg/dL Total Bilirubin (0.0-1.0) mg/dL AST (15-37) U/L ALT (12-78) U/L Alkaline Phosphatase (46-116) U/L Creatine Kinase (21-215) U/L C-Reactive Protein (0.2-0.8) mg/dL Total Protein (6.4-8.2) g/dL Albumin (3.4-5.0) g/dL Amylase 20 L (25-115) U/L Lipase 35 L (73-393) U/L Urine Color (YELLOW) Urine Appearance (CLEAR) Urine pH (4.5-8.0) Ur Specific [place] (1.003-1.020) Urine Protein (NEGATIVE) mg/dL Urine Glucose (UA) (NEGATIVE) mg/dL Urine Ketones (NEGATIVE) mg/dL Urine Occult Blood (NEGATIVE) Urine Nitrite (NEGATIVE) Urine Bilirubin (NEGATIVE) Urine Urobilinogen (0.2-1.0) EU/dL Ur Leukocyte Esterase (NEGATIVE) Urine RBC (0-5) /HPF Urine WBC (0-5) /HPF Ur Epithelial Cells (NOT SEEN) /HPF Amorphous Sediment (NOT SEEN) /HPF Urine Bacteria (NOT SEEN) /HPF Urinalysis Comment Urine HCG, Qual Urine Opiates Screen (NEGATIVE) Ur Oxycodone Screen (NEGATIVE) Urine Methadone Screen (NEGATIVE) Ur Barbiturates Screen (NEGATIVE) U Tricyclic Antidepress (NEGATIVE) Ur Phencyclidine Scrn (NEGATIVE) Ur Amphetamine Screen (NEGATIVE) U Methamphetamines Scrn (NEGATIVE) Urine MDMA Screen (NEGATIVE) U Benzodiazepines Scrn (NEGATIVE) Urine Cocaine Screen (NEGATIVE) U Marijuana (THC) Screen (NEGATIVE) Influenza Type A RNA (NEGATIVE) Influenza Type B RNA (NEGATIVE) SARS-CoV-2 RNA ([place]) (NEGATIVE) Meds: Medications Generic Name Dose Route Start Last Admin Trade Name Freq PRN Reason Stop Dose Admin Lactated Ringer's 1,000 mls @ 999 mls/hr 06/13/20 14:15 06/13/20 14:36 Ringers, Lactated IV 999 mls/hr ASDIRECTED KADE Administration Ondansetron HCl 4 mg 06/13/20 14:07 06/13/20 14:32 Ondansetron 4 Mg/2 Ml Sdv IVPUSH 4 mg Q6H PRN Administration Nausea Discontinued Medications Generic Name Dose Route Start Last Admin Trade Name Freq PRN Reason Stop Dose Admin Ceftriaxone Sodium 1 gm 06/13/20 15:46 06/13/20 15:54 Ceftriaxone 1 Gm Vial IVPUSH 06/13/20 15:47 1 gm ONETIME ONE Administration Iopamidol 100 ml 06/13/20 14:58 06/13/20 14:59 Iopamidol 755 Mg/Ml 100 Ml Bottle IVPUSH 06/13/20 14:59 100 ml ONETIME ONE Administration - Radiology Interpretation Free Text/Narrative:: No acute or inflammatory findings in abdomen or pelvis. CT Results Date: 06/13/20 CT Results Time: 15:46 Departure - Departure Time of Disposition: 15:53 Disposition: Home, Self-Care 01 Condition: Good Clinical Impression: Abdominal pain - Discharge Information *PRESCRIPTION DRUG MONITORING PROGRAM REVIEWED*: Not Applicable *COPY OF PRESCRIPTION DRUG MONITORING REPORT IN PATIENT RACIEL: Not Applicable Instructions: Abdominal Pain, Adult, [id number] Forms: ED Department Discharge Additional Instructions: - CT scan of abdomen/pelvis negative for any acute or inflammatory process as cause of pain - [place] diet until symptoms improve - Rest and push fluids - Recommend refraining from marijuana use - Zofran as needed for nausea/vomiting - Follow up with PCP to discuss anxiety medication - Return to ED for emergent needs Sepsis Event Note (ED) - Evaluation Sepsis Screening Result: No Definite Risk - Focused Exam Vital Signs: Vital Signs Temp Pulse Resp BP Pulse Ox 06/13/20 13:35 95.9 F L 100 20 133/91 H 96 - My Orders Last 24 Hours: My Active Orders 06/13/20 14:07 Ondansetron [Zofran] 4 mg IVPUSH Q6H PRN 06/13/20 14:13 Abdomen Pelvis w Cont [CT] Stat 06/13/20 14:15 Lactated Ringers [Ringers, Lactated] 1,000 ml IV ASDIRECTED - Assessment/Plan Last 24 Hours: My Active Orders 06/13/20 14:07 Ondansetron [Zofran] 4 mg IVPUSH Q6H PRN 06/13/20 14:13 Abdomen Pelvis w Cont [CT] Stat 06/13/20 14:15 Lactated Ringers [Ringers, Lactated] 1,000 ml IV ASDIRECTED Assessment:: ACute on Chronic ABdominal pain Nausea Vomiting Plan: 24 yo presents with malaise and abdominal pain which started this morning. SHe reports she has not been feeling well since starting Lexapro. Has been nauseated every morning but has noted an improvement in her anxiety. SHe is well known to ED and has been seen on multiple occasions for abdominal pain, nausea and vomiting. She reports onset of current symptoms this morning in which she didn't feel well and was cold and clammy. Abdominal pain also started this morning and she had one emesis. Lab work revealed WBC 13.9, so did opt to proceed with CT abdomen/pelvis, which was negative for any acute processes. Lab work otherwise unremarkable, except low magnesium at 1.6. Patient was given 1 L LR fluid bolus, 4 mg Zofran, and 1 G Rocephin. Nausea/vomiting and abdominal pain did improve. Patient slept majority of ED visit. Discussed normal findings. Did discuss holding Lexapro until able to follow up with PCP vs continuing it as she does feel it has helped her anxiety. SHe is not actively suicidal, but just reports she is sick of feeling this way. Recommend starting daily magnesium supplement. Will discharge home with Zofran to be used as needed. Recommend refraining from marijuana use. Recommend she follow up with PCP for recheck as needed.
[2020-06-13 14:17] LABS: CHLORIDE,CL 103 mEq/L (98-106); SODIUM,NA 142 mEq/L (136-145)
[2020-06-13] MEDS: Ondansetron 4 MG/2 ML SDV IVPUSH PRN (14:32)
[2020-06-13] MEDS: Lactated Ringers 1,000 ML IV SCH (14:36)
[2020-06-13 14:42] LABS: CORONAVIRUS COVID-19 NAA NEGATIVE (NEGATIVE)
[2020-06-13] MEDS: Iopamidol 755 Mg/ML 100 ML Bottle IVPUSH ONE (14:59)
[2020-06-13] MEDS: cefTRIAXone 1 GM Vial IVPUSH ONE (15:54)
== END 2020-06-13 16:10 | disposition home or self-care (01) ==
LOC: CC.ED 13:27
DX: R10.84 Generalized abdominal pain (principal); R53.81 Other malaise; R11.2 Nausea with vomiting, unspecified; K21.9 Gastro-esophageal reflux disease without esophagitis; Z72.0 Tobacco use; Z20.822 Contact with and (suspected) exposure to COVID-19; Z79.899 Other long term (current) drug therapy
CPT/HCPCS: 0240U; 36415; 74177; 80053; 80305; 81001; 81025; 82150; 82550; 83690; 83735; 85025; 86140; 96374; 96375; 99284; J0696; J2405; J7120; Q9967

== ENCOUNTER 2020-06-15 13:01 | Emergency (ER) | payer MEDICAID ==
[2020-06-15 13:18] VITALS: BP 141/95; PULSE 58
[2020-06-15] MEDS: Alum Hydrox/Mag Hydrox/Simeth 30 ML, Lidocaine 2% 15 ML PO ONE ×2 (13:35)
[2020-06-15] MEDS: Promethazine 25 MG in Sodium Chloride 0.9% 100 ML IV ONE (13:38)
[2020-06-15] MEDS: Pantoprazole 40 MG Vial IVPUSH SCH (13:40)
[2020-06-15 13:46] LABS: CHLORIDE,CL 102 mEq/L (98-106); SODIUM,NA 142 mEq/L (136-145)
--- NOTE | 2020-06-15 14:05 | EDM.PDOC ---
ED HPI GENERAL MEDICAL PROBLEM - General Chief Complaint: Abdominal Pain Stated Complaint: STOMACH ON FIRE Time Seen by Provider: 06/15/20 13:25 Source of Information: Reports: Patient History Limitations: Reports: No Limitations - History of Present Illness INITIAL COMMENTS - FREE TEXT/NARRATIVE: pt states that she has been having upper abdominal burning and pain all morning. She reports that she has been nauseated with it. No diarrhea. She has been in the ER and clinic multiple times for the same complaint. She did have CT scan earlier this week and labs that were normal. She took her zofran at home about noon and it did not relieve the nausea. She is scheduled to see GI for further workup in the future. She is reporting burning to the upper half of stomach. S he relates that she has not had any alcohol or pop for weeks. Did smoke pot 2 days ago by her report. Onset: Gradual Duration: Intermittent Location: Reports: Abdomen Quality: Reports: Same as Previous Episode Associated Symptoms: Reports: Nausea/Vomiting Lower Abdomen Pain Score (Numeric/FACES): 8 - Related Data Allergies Allergy/AdvReac Type Severity Reaction Status Date / Time No Known Allergies Allergy Verified 06/15/20 13:18 Home Meds: Home Meds Pantoprazole Sodium [Protonix] 20 mg PO DAILY 04/03/20 [History] Ondansetron [Zofran] 4 mg PO Q6H PRN #30 tab 06/13/20 [Rx] Past Medical History - Past Health History Medical/Surgical History: Denies Medical/Surgical History HEENT History: Reports: Impaired Vision Gastrointestinal History: Reports: GERD, PUD Genitourinary History: Reports: None 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: , 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 History: 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 Neurological History: Reports: Headaches, Chronic Psychiatric History: Reports: Anxiety Hematologic History: Reports: None - Past Surgical History HEENT Surgical History: Reports: None GI Surgical History: Reports: None Female Surgical History: Reports: D&C Social & Family History - Family History Family Medical History: No Pertinent Family History - Tobacco Use Tobacco Use Status *Q: Current Every Day Tobacco User Years of Tobacco use: 10 Packs/Tins Daily: 1 - Caffeine Use Caffeine Use: Reports: None - Recreational Drug Use Recreational Drug Use: Yes Recreational Drug Type: Reports: Marijuana/Hashish - Living Situation & Occupation Living situation: Reports: Single, with Significant Other ED ROS GENERAL - Review of Systems Review Of Systems: See Below Constitutional: Denies: Fever, Chills GI/Abdominal: Reports: Abdominal Pain, Nausea. Denies: Constipation, Diarrhea ED EXAM, GI/ABD - Physical Exam Exam: See Below Exam Limited By: No Limitations General Appearance: Alert, WD/WN, Moderate Distress Neck: Normal Inspection, Supple Respiratory/Chest: No Respiratory Distress, Lungs Clear, Normal Breath Sounds Cardiovascular: Normal Peripheral Pulses, Regular Rate, Rhythm, No Edema GI/Abdominal Exam: Normal Bowel Sounds, Soft, Tender (to the upper half of abdomen with palpation. No guarding.) Skin Exam: Warm, Dry, Intact Course - Vital Signs Last Recorded V/S: Last Vital Signs Temp 98.2 F 06/15/20 13:16 Pulse 58 L 06/15/20 13:16 Resp 18 06/15/20 13:16 BP 141/95 H 06/15/20 13:16 Pulse Ox 96 06/15/20 13:16 - Orders/Labs/Meds Labs: Laboratory Tests 06/15/20 06/15/20 06/15/20 Range/Units 13:28 13:30 13:30 WBC 12.2 H (5.0-10.0) 10^3/uL RBC 4.95 (4.00-5.50) 10^6/uL Hgb 15.5 (12.0-16.0) g/dL Hct 44.2 (37.0-47.0) % MCV 89.3 (82.0-94.0) fL MCH 31.3 (27.0-32.0) pg MCHC 35.1 (33.0-38.0) g/dL RDW Coeff of Kimberlee 13.6 (11.0-15.0) % Plt Count 290 (150-400) 10^3/uL Neut % (Auto) 90.1 H (35-85) % Lymph % (Auto) 7.1 L (10-55) % [place] % (Auto) 2.5 (0-16) % Eos % (Auto) 0.1 (0-5) % Baso % (Auto) 0.2 (0-3) % Neut # (Auto) 11.02 H (1.80-7.00) 10^3/uL Lymph # (Auto) 0.87 L (1.00-4.80) 10^3/uL [place] # (Auto) 0.30 (0.00-0.80) 10^3/uL Eos # (Auto) 0.01 (0.00-0.45) 10^3/uL Baso # (Auto) 0.02 10^3/uL Sodium 142 (136-145) mEq/L Potassium 3.9 (3.5-5.0) mEq/L Chloride 102 (98-106) mEq/L Carbon Dioxide 28 (21-32) mmol/L BUN 13 (7-18) mg/dL Creatinine 0.8 (0.6-1.0) mg/dL Est Cr Clr Drug Dosing 117.26 mL/min Estimated GFR (MDRD) > 60 (>=60) mL/min Glucose 113 H (75-99) mg/dL Calcium 9.1 (8.4-10.1) mg/dL Urine Color Yellow (YELLOW) Urine Appearance Slightly cloudy (CLEAR) Urine pH 8.5 H (4.5-8.0) Ur Specific [place] 1.025 H (1.003-1.020) Urine Protein 30 H (NEGATIVE) mg/dL Urine Glucose (UA) Negative (NEGATIVE) mg/dL Urine Ketones Negative (NEGATIVE) mg/dL Urine Occult Blood Negative (NEGATIVE) Urine Nitrite Negative (NEGATIVE) Urine Bilirubin Negative (NEGATIVE) Urine Urobilinogen 0.2 (0.2-1.0) EU/dL Ur Leukocyte Esterase Negative (NEGATIVE) Urine RBC Not seen (0-5) /HPF Urine WBC Not seen (0-5) /HPF Ur Epithelial Cells Few H (NOT SEEN) /HPF Amorphous Sediment Many H (NOT SEEN) /HPF Meds: Medications Discontinued Medications Generic Name Dose Route Start Last Admin Trade Name Freq PRN Reason Stop Dose Admin Al Hydroxide/Mg Hydroxide 30 0 ml 06/15/20 13:29 06/15/20 13:35 ml/ Lidocaine HCl 15 ml PO 06/15/20 13:30 30 ml ONETIME ONE Administration Promethazine HCl 25 mg/ Sodium 101 mls @ 400 mls/hr 06/15/20 13:30 06/15/20 13:38 Chloride IV 06/15/20 13:45 400 mls/hr ONETIME ONE Administration Pantoprazole Sodium 40 mg 06/15/20 13:30 06/15/20 13:40 Pantoprazole 40 Mg Vial IVPUSH 40 mg Q24H KADE Administration - Re-Assessments/Exams Free Text/Narrative Re-Assessment/Exam: 06/15/20 1350 When I returned to the ER for reevaluation of the pt after giving her protonix, GI cocktail and phenergan she was sleeping soundly and pain was resolved. Labs were reviewed with the pt and she will be discharged to keep her appt with GI for further workup. Will discharge with phenergan as that seems to control her nausea better at this time. Departure - Departure Time of Disposition: 14:05 Disposition: Home, Self-Care 01 Condition: Good Clinical Impression: Gastritis - Discharge Information *PRESCRIPTION DRUG MONITORING PROGRAM REVIEWED*: Not Applicable *COPY OF PRESCRIPTION DRUG MONITORING REPORT IN PATIENT RACIEL: Not Applicable Instructions: Gastritis, Adult, [id number] Referrals: Angy Borja PA-C [Primary Care Provider] - Forms: ED Department Discharge Additional Instructions: Use phenergan every 6 hours as needed for nausea and abdominal pain Go to appt with GI when they call with appt Push fluids as much as possible Sepsis Event Note (ED) - Evaluation Sepsis Screening Result: No Definite Risk - Focused Exam Vital Signs: Vital Signs Temp Pulse Resp BP Pulse Ox 06/15/20 13:16 98.2 F 58 L 18 141/95 H 96 - Problem List & Annotations (1) Abdominal pain SNOMED Code(s): 98911311 Code(s): R10.9 - UNSPECIFIED ABDOMINAL PAIN Status: Acute Priority: High - Problem List Review Problem List Initiated/Reviewed/Updated: Yes
== END 2020-06-15 14:24 | disposition home or self-care (01) ==
LOC: CC.ED 13:01
DX: K29.70 Gastritis, unspecified, without bleeding (principal); K21.9 Gastro-esophageal reflux disease without esophagitis; F17.290 Nicotine dependence, other tobacco product, uncomplicated; Z79.899 Other long term (current) drug therapy
CPT/HCPCS: 36415; 80048; 81001; 85025; 96365; 96375; 99284; A9270; C9113; J2550

== ENCOUNTER 2020-07-03 14:18 | Observation (INO) | payer MEDICAID ==
[2020-07-03 14:53] LABS: CHLORIDE,CL 105 mEq/L (98-106); SODIUM,NA 141 mEq/L (136-145)
[2020-07-03] MEDS ORDERED: Lactated Ringers 1,000 ML IV PRN (15:00)
[2020-07-03] MEDS ORDERED: Ondansetron 4 MG/2 ML SDV IVPUSH PRN (15:00)
[2020-07-03] MEDS: Lactated Ringers 1,000 ML IV SCH (16:49)
[2020-07-03] MEDS: Promethazine 12.5 MG in Sodium Chloride 0.9% 50 ML IV PRN (16:58)
[2020-07-03] MEDS ORDERED: Pantoprazole 40 MG Vial IVPUSH SCH (20:00)
[2020-07-03] MEDS ORDERED: Alum Hydrox/Mag Hydrox/Simeth 30 ML, Lidocaine 2% 15 ML PO ONE ×2 (22:25)
[2020-07-03] MEDS: Ondansetron 4 MG/2 ML SDV IVPUSH PRN (22:47)
[2020-07-04] MEDS: Lactated Ringers 1,000 ML IV SCH (00:41)
[2020-07-04] MEDS: Promethazine 12.5 MG in Sodium Chloride 0.9% 50 ML IV PRN (00:42)
[2020-07-04] MEDS: Ondansetron 4 MG/2 ML SDV IVPUSH PRN (06:23)
[2020-07-04 07:22] LABS: CHLORIDE,CL 105 mEq/L (98-106); SODIUM,NA 143 mEq/L (136-145)
[2020-07-04] MEDS ORDERED: Magnesium Sulfate (4.06 MEQ/ML) 1 GM/2 ML SDV IV ONE (10:45)
[2020-07-04 11:37] VITALS: BP 113/64; PULSE 54
[2020-07-04] MEDS ORDERED: Magnesium Sulfate/Water 2 GM/50 ML BAG IV ONE (11:45)
--- NOTE | 2020-07-05 09:24 | PCM.DCSUM1 ---
Discharge Summary - Hospital Course HPI Initial Comments: Lori is a 24 yo female who was admitted to the hospital from the clinic on 07/03/2020. She had been having abdominal pain with nausea and vomiting. This has been intermittently chronic for over the last year. Patient had been on protonix and xofran as she has been doctoring for this for quite some time. Patient was admitted for IV fluids and anti-emetics. Diagnosis: Stroke: No - Discharge Data Discharge Date: 07/04/20 Discharge Disposition: Home, Self-Care 01 Condition: Good - Referral to Home Health Primary Care Physician: Klaus Dougherty MD - Discharge Diagnosis/Problem(s) (1) Hyperemesis SNOMED Code(s): 047314073 ICD Code: R11.10 - VOMITING, UNSPECIFIED Status: Acute (2) GERD (gastroesophageal reflux disease) SNOMED Code(s): 017650502 ICD Code: K21.9 - GASTRO-ESOPHAGEAL REFLUX DISEASE WITHOUT ESOPHAGITIS Status: Chronic Qualifiers: Esophagitis presence: esophagitis presence not specified Qualified Code(s): K21.9 - Gastro-esophageal reflux disease without esophagitis - Patient Instructions Diet: Usual Diet as Tolerated Activity: As Tolerated Notify Provider of: Fever, Increased Pain, Nausea and/or Vomiting - Discharge Plan *PRESCRIPTION DRUG MONITORING PROGRAM REVIEWED*: No *COPY OF PRESCRIPTION DRUG MONITORING REPORT IN PATIENT RACIEL: No Prescriptions/Med Rec: Pantoprazole [ProTONIX] 40 mg PO DAILY #60 tab.cr Home Medications: Home Meds Pantoprazole [ProTONIX] 40 mg PO DAILY #60 tab.cr 07/04/20 [Rx] Oxygen Therapy Mode: Room Air Patient Handouts: Nausea and Vomiting, Adult, [id number] - Discharge Summary/Plan Comment DC Time >30 min.: Yes Discharge Summary/Plan Comment: Reviewed patients chart and recent laboratory work. Magnesium was slightly low and patient given 2gm IV today. Prior work up included CT of the abdomen/pelvis, abdominal US, HIDA scan, laboratory work and EGD. Patient is scheduled to see GI on the 14 of July. Will d/c Zofran and start Phenergan as it seems to help with nausea. Discussed bland diet into detail. Patient has standing order for IV fluids. It has been of concern that patient is getting hyperemesis for marijuana use. Patient to be discharged this morning. - General Info Subjective Update: Lori is feeling better this morning. No further vomiting this morning. She states she is tired of dealing with this. States she has underwent multiple tests and nothing comes back. She questions if her period has anything to do with it. As she has noticed it to bother her more around her period. States she gets a burning sensation and becomes very tired. - Review of Systems General: Denies: Appetite HEENT: Reports: No Symptoms Pulmonary: Reports: No Symptoms Cardiovascular: Reports: No Symptoms Gastrointestinal: Reports: Decreased Appetite, Nausea. Denies: Abdominal Pain, Diarrhea, Vomiting Genitourinary: Reports: No Symptoms Musculoskeletal: Reports: No Symptoms Neurological: Reports: No Symptoms Psychiatric: Reports: No Symptoms - Patient Data Vitals - Most Recent: Last Vital Signs Temp 98.0 F 07/04/20 11:36 Pulse 54 L 07/04/20 11:36 Resp 18 07/04/20 11:36 BP 113/64 07/04/20 11:36 Pulse Ox 98 07/04/20 11:36 Weight - Most Recent: 209 lb Med Orders - Current: Current Medications Discontinued Medications Al Hydroxide/Mg Hydroxide 30 (ml/ Lidocaine HCl 15 ml) 0 ml PO ONETIME ONE Stop: 07/03/20 22:26 Last Admin: 07/03/20 22:47 Dose: 45 ml Documented by: Lactated Ringer's (Ringers, Lactated) 1,000 mls @ 999 mls/hr IV Q24H PRN PRN Reason: Nausea/Vomiting Last Admin: 07/03/20 14:55 Dose: 999 mls/hr Documented by: Lactated Ringer's (Ringers, Lactated) 1,000 mls @ 125 mls/hr IV ASDIRECTED [facility] Stop: 07/04/20 09:45 Last Admin: 07/04/20 00:41 Dose: 125 mls/hr Documented by: Promethazine HCl 12.5 mg/ (Sodium Chloride) 50.5 mls @ 100 mls/hr IV Q6H PRN PRN Reason: Nausea/Vomiting Last Admin: 07/04/20 00:42 Dose: 100 mls/hr Documented by: Magnesium Sulfate (Magnesium Sulfate In Water 2 Gm/50 Ml) 2 gm in 50 mls @ 25 mls/hr IV ONETIME ONE Stop: 07/04/20 13:44 Last Admin: 07/04/20 11:44 Dose: 25 mls/hr Documented by: Magnesium Sulfate (Magnesium Sulfate (4.06 Meq/Ml) 1 Gm/2 Ml Sdv) 2 gm IV ONE TIME ONE Stop: 07/04/20 10:46 Last Admin: 07/04/20 11:39 Dose: Not Given Documented by: Ondansetron HCl (Ondansetron 4 Mg/2 Ml Sdv) 4 mg IVPUSH Q8H PRN PRN Reason: Nausea/Vomiting Last Admin: 07/03/20 14:58 Dose: 4 mg Documented by: Ondansetron HCl (Ondansetron 4 Mg/2 Ml Sdv) 4 mg IVPUSH Q6H PRN PRN Reason: Nausea/Vomiting Last Admin: 07/04/20 06:23 Dose: 4 mg Documented by: Pantoprazole Sodium (Pantoprazole 40 Mg Vial) 40 mg IVPUSH Q24H KADE Last Admin: 07/03/20 20:01 Dose: 40 mg Documented by: - Exam General: Reports: Alert, Oriented, Cooperative, No Acute Distress Neck: Reports: Supple Lungs: Reports: Clear to Auscultation, Normal Respiratory Effort Cardiovascular: Reports: Regular Rate, Regular Rhythm, No Murmurs GI/Abdominal Exam: Normal Bowel Sounds, Soft, No Mass, Tender (mild epigastric tenderness) Extremities: Normal Inspection, No Pedal Edema Skin: Reports: Warm, Dry, Intact Psy/Mental Status: Reports: Alert, Normal Affect, Normal Mood
== END 2020-07-04 13:35 | disposition home or self-care (01) ==
LOC: CC.MS 14:18 → CC.FCMC 14:18 → CC.MS 16:13 → UNDOADMOB 16:13 → CC.MS 16:36
PROVIDERS: ADMIT Nurse Practitioner Family; ATTEND Family Medicine
DX: R11.2 Nausea with vomiting, unspecified (principal); K21.9 Gastro-esophageal reflux disease without esophagitis; F12.90 Cannabis use, unspecified, uncomplicated; Z79.899 Other long term (current) drug therapy; F17.210 Nicotine dependence, cigarettes, uncomplicated; Z98.890 Other specified postprocedural states
CPT/HCPCS: 36415; 80048; 80053; 80305-QW; 81001; 83735; 84443; 85025; 85651; 86140; 96365; 96366; 96375; 96376; A9270-GY; C9113; G0378; J2405; J2550; J3475; J7120

== ENCOUNTER 2020-11-07 03:12 | Emergency (ER) | payer MEDICAID ==
[2020-11-07 03:15] VITALS: PULSE 83
[2020-11-07] MEDS ORDERED: Take Home: Acetaminophen/HYDROcodone 325-5 MG, 2 Tab Pack ONE (03:24)
--- NOTE | 2020-11-07 03:29 | EDM.PDOC ---
ED HPI GENERAL MEDICAL PROBLEM - General Chief Complaint: General Stated Complaint: Dental Pain Time Seen by Provider: 11/07/20 03:23 Source of Information: Reports: Patient History Limitations: Reports: No Limitations - History of Present Illness INITIAL COMMENTS - FREE TEXT/NARRATIVE: Lori is a 25 yo female who presents to the ED with c/o right lower tooth pain. She reports onset of pain yesterday afternoon. Does have tooth with area of decay in area of pain. Reports throughout the night pain has worsened significantly. She is in tears at time of presentation. Reports she has tried Tylenol, ibuprofen, ice, heat, lidocaine lozenges, peppermint etc. without relief. Reports tenderness to jaw. Denies any fever, chills, N/V/D. No other concerns. 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, Cold Therapy, Heat Therapy, NSAIDS r lower dental Pain Score (Numeric/FACES): 10 - Related Data Allergies Allergy/AdvReac Type Severity Reaction Status Date / Time No Known Allergies Allergy Verified 11/07/20 03:15 Home Meds: Home Meds Pantoprazole [ProTONIX] 40 mg PO DAILY #60 tab.cr 07/04/20 [Rx] Amoxicillin 500 mg PO TID 10 Days #28 tab 11/07/20 [Rx] Escitalopram Oxalate [Lexapro] 10 mg PO DAILY 11/07/20 [History] Lidocaine 2% [Xylocaine 2% Viscous] 15 ml TOP Q4H PRN #100 ml 11/07/20 [Rx] Nortriptyline 25 mg PO BEDTIME 11/07/20 [History] Past Medical History - Past Health History Medical/Surgical History: Denies Medical/Surgical History HEENT History: Reports: Impaired Vision Gastrointestinal History: Reports: GERD, PUD Genitourinary History: Reports: None CANCER PROGRAM CONSULTANT History: Reports: , Other (See Below) Other CANCER PROGRAM CONSULTANT History: molar Neurological History: Reports: Headaches, Chronic Psychiatric History: Reports: Anxiety Hematologic History: Reports: None - Past Surgical History HEENT Surgical History: Reports: None GI Surgical History: Reports: None Female Surgical History: Reports: D&C Social & Family History - Family History Family Medical History: No Pertinent Family History - Tobacco Use Tobacco Use Status *Q: Never Tobacco User Second Hand Smoke Exposure: No - Caffeine Use Caffeine Use: Reports: None - Recreational Drug Use Recreational Drug Use: No - Living Situation & Occupation Living situation: Reports: Single, with Significant Other ED ROS GENERAL - Review of Systems Review Of Systems: Comprehensive ROS is negative, except as noted in HPI. ED EXAM, GENERAL - Physical Exam Exam: See Below Exam Limited By: No Limitations General Appearance: Alert, WD/WN, No Apparent Distress Throat/Mouth: Normal Lips, Normal Oropharynx, Normal Voice, Other (right lower 1st molar- tenderness, area of decay to center of tooth, swollen gum surrounding, no dranage) Neck: Normal Inspection, Supple, Non-Tender, Full Range of Motion Course - Vital Signs Last Recorded V/S: Last Vital Signs Temp 96.8 F L 11/07/20 03:13 Pulse 83 11/07/20 03:13 Resp 18 11/07/20 03:13 BP 142/102 H 11/07/20 03:13 Pulse Ox 98 11/07/20 03:13 - Orders/Labs/Meds Meds: Medications Discontinued Medications Generic Name Dose Route Start Last Admin Trade Name Raymondq PRN Reason Stop Dose Admin Amoxicillin 1 packet 11/07/20 03:32 Take Home: Amoxicillin 500 Mg Cap, 2 Cap Pack PO 11/07/20 03:33 ONETIME ONE Ketorolac Tromethamine 60 mg 11/07/20 03:29 Ketorolac 60 Mg/2 Ml Sdv IM 11/07/20 03:30 ONETIME ONE Lidocaine HCl 15 ml 11/07/20 03:29 Lidocaine 2% Viscous Solution 15 Ml Cup PO 11/07/20 03:30 ONETIME ONE Departure - Departure Time of Disposition: 03:37 Disposition: Home, Self-Care 01 Condition: Fair Clinical Impression: Tooth abscess - Discharge Information *PRESCRIPTION DRUG MONITORING PROGRAM REVIEWED*: Yes *COPY OF PRESCRIPTION DRUG MONITORING REPORT IN PATIENT RACIEL: Yes Prescriptions: Amoxicillin 500 mg PO TID 10 Days #28 tab Instructions: Dental Abscess, [id number] Forms: ED Department Discharge Additional Instructions: - Amoxicillin 500 mg every 8 hours x 10 days - Eden 1 tablet every 6 hours as needed for pain - Use Tylenol/ibuprofen as needed for less severe pain - Soak cotton ball in Lidocaine and apply to area of discomfort every 4 hours as needed for severe pain - Ice/heat to area as needed for comfort - Recommend follow up with dentist LIONEL - Return to ED for emergent needs Sepsis Event Note (ED) - Evaluation Sepsis Screening Result: No Definite Risk - Focused Exam Vital Signs: Vital Signs Temp Pulse Resp BP Pulse Ox 11/07/20 03:13 96.8 F L 83 18 142/102 H 98 - Problem List & Annotations (1) Tooth abscess SNOMED Code(s): 419060808 Code(s): K04.7 - PERIAPICAL ABSCESS WITHOUT SINUS Status: Acute Current Visit: Yes - Problem List Review Problem List Initiated/Reviewed/Updated: Yes - Assessment/Plan Assessment:: Tooth Abscess Plan: Patient given vicious lidocaine and 60 mg Toradol in ED. Patient noted improvement in pain. She will be started on Amoxicillin TID x 10 days. Is advised to use Eden and lidocaine as needed for severe pain. Tylenol or ibuprofen as needed for less severe pain. She is advised to follow up with dentist LIONEL. Return to ED for emergent needs.
[2020-11-07] MEDS: Lidocaine 2% Viscous Solution 15 ML Cup PO ONE (03:43)
[2020-11-07] MEDS: Ketorolac 60 MG/2 ML SDV IM ONE (03:43)
[2020-11-07] MEDS: Take Home: Amoxicillin 500 MG Cap, 2 Cap Pack PO ONE (03:44)
[2020-11-07] MEDS: Take Home: Acetaminophen/HYDROcodone 325-5 MG, 2 Tab Pack PO ONE (03:46)
[2020-11-07 03:53] VITALS: BP 139/90
== END 2020-11-07 03:53 | disposition home or self-care (01) ==
LOC: CC.ED 03:12
DX: K04.7 Periapical abscess without sinus (principal); K21.9 Gastro-esophageal reflux disease without esophagitis; Z79.899 Other long term (current) drug therapy
CPT/HCPCS: 96372; 99282; A9270; J1885

== ENCOUNTER 2021-09-07 03:57 | Emergency (ER) | payer MEDICAID ==
[2021-09-07 04:25] VITALS: BP 114/72; PULSE 84
== END 2021-09-07 05:00 | disposition home or self-care (01) ==
LOC: CC.ED 03:57
DX: U07.1 COVID-19 (principal); J10.1 Influenza due to other identified influenza virus with other respiratory manifestations; R53.81 Other malaise; K21.9 Gastro-esophageal reflux disease without esophagitis; Z79.899 Other long term (current) drug therapy
CPT/HCPCS: 87804; 99283; 99284; U0002

== ENCOUNTER → 2021-10-03 13:22 | Emergency (ER) | payer MEDICAID ==
[2021-10-03 12:52] VITALS: BP 146/82; PULSE 56
[~2021-10-03 13:22] MED LIST changes: -Benzocaine 20% Oral Spray 59.2 ML Canister MUCMEM ONE; -Lactated Ringers 1,000 ML IV SCH; -Lactated Ringers 1,000 ML ONE; -Meperidine 50 MG/ML Vial IV ONE; -Meperidine PF 50 MG/ML Syringe IV ONE; -Midazolam 1 MG/ML 2 ML SDV IV ONE; +Promethazine 25 MG/ML SDV ONE
== END | disposition home or self-care (01) ==
LOC: CC.ACU 12:41 → CC.ED 13:22 → CC.ACU 13:34 → CC.ED 10-04 02:50
DX: R10.9 Unspecified abdominal pain (principal); T50.905A Adverse effect of unspecified drugs, medicaments and biological substances, initial encounter; Z77.22 Contact with and (suspected) exposure to environmental tobacco smoke (acute) (chronic)
CPT/HCPCS: 99283; 99284

== ENCOUNTER 2021-10-09 20:45 | Emergency (ER) | payer MEDICAID ==
[2021-10-09] MEDS ORDERED: Sodium Chloride 0.9% 10 ML Syringe FLUSH PRN (20:55)
[2021-10-09 20:56] VITALS: BP 152/101; PULSE 63
[2021-10-09] MEDS: Alum Hydrox/Mag Hydrox/Simeth 30 ML, Lidocaine 2% 15 ML PO ONE ×2 (21:01)
[2021-10-09] MEDS: Metoclopramide 10 MG/2 ML SDV IVPUSH ONE (21:01)
[2021-10-09] MEDS: Famotidine 20 MG/2 ML SDV IVPUSH ONE (21:02)
== END 2021-10-09 21:50 | disposition home or self-care (01) ==
LOC: CC.ED 20:45
DX: O21.9 Vomiting of pregnancy, unspecified (principal); O99.611 Diseases of the digestive system complicating pregnancy, first trimester; K29.00 Acute gastritis without bleeding; Z3A.00 Weeks of gestation of pregnancy not specified
CPT/HCPCS: 96374; 96375; 99283-25; A9270-GY; J2765; J3490

== ENCOUNTER 2021-10-11 12:48 | Emergency (ER) | payer MEDICAID ==
[2021-10-11 13:00] VITALS: BP 152/95; PULSE 66
[2021-10-11 13:40] LABS: AMPHETAMINES,URINE NEGATIVE (NEGATIVE); BARBITURATES,URINE NEGATIVE (NEGATIVE); BENZODIAZEPINE,URINE NEGATIVE (NEGATIVE); MDMA (ECSTASY), URINE NEGATIVE (NEGATIVE); METHADONE,URINE NEGATIVE (NEGATIVE); METHAMPHETAMINES,URINE NEGATIVE (NEGATIVE); OPIATES,URINE NEGATIVE (NEGATIVE); OXYCODONE,URINE NEGATIVE (NEGATIVE); PHENCYCLIDINE,URINE NEGATIVE (NEGATIVE); TCA,URINE NEGATIVE (NEGATIVE)
[2021-10-11] MEDS ORDERED: Metoclopramide 10 MG/2 ML SDV IM ONE (13:55)
== END 2021-10-11 14:15 | disposition home or self-care (01) ==
LOC: CC.ED 12:48
DX: O21.9 Vomiting of pregnancy, unspecified (principal); F12.188 Cannabis abuse with other cannabis-induced disorder; Z3A.01 Less than 8 weeks gestation of pregnancy; Z79.899 Other long term (current) drug therapy
CPT/HCPCS: 36415; 80053; 80305-QW; 81003; 81025; 83690; 85025; 96372; 99284; J2765

== ENCOUNTER 2021-11-01 10:09 | Emergency (ER) | payer MEDICAID ==
[2021-11-01] MEDS ORDERED: Sodium Chloride 0.9% 10 ML Syringe FLUSH PRN (10:41)
[2021-11-01 10:57] LABS: AMPHETAMINES,URINE NEGATIVE (NEGATIVE); BARBITURATES,URINE NEGATIVE (NEGATIVE); BENZODIAZEPINE,URINE NEGATIVE (NEGATIVE); MDMA (ECSTASY), URINE NEGATIVE (NEGATIVE); METHADONE,URINE NEGATIVE (NEGATIVE); METHAMPHETAMINES,URINE NEGATIVE (NEGATIVE); OPIATES,URINE NEGATIVE (NEGATIVE); OXYCODONE,URINE NEGATIVE (NEGATIVE); PHENCYCLIDINE,URINE NEGATIVE (NEGATIVE); TCA,URINE NEGATIVE (NEGATIVE)
[2021-11-01] MEDS ORDERED: Metoclopramide 10 MG/2 ML SDV IM ONE (11:02)
[2021-11-01] MEDS ORDERED: Sodium Chloride 0.9% 1,000 ML IV ONE (11:03)
[2021-11-01 11:09] LABS: CHLORIDE,CL 103 mEq/L (98-106); SODIUM,NA 138 mEq/L (136-145)
[2021-11-01 11:10] LABS: ESTIMATED GFR 127 mL/min (>=60)
[2021-11-01 12:29] VITALS: BP 171/106; PULSE 66
== END 2021-11-01 12:41 | disposition home or self-care (01) ==
LOC: CC.ED 10:09
DX: O21.9 Vomiting of pregnancy, unspecified (principal); K21.9 Gastro-esophageal reflux disease without esophagitis; Z79.899 Other long term (current) drug therapy; Z3A.01 Less than 8 weeks gestation of pregnancy
CPT/HCPCS: 36415; 80053; 80305-QW; 81003; 96360; 96372; 99283; 99284-25; J2765; J7030

== ENCOUNTER 2021-11-18 08:52 | Emergency (ER) | payer MEDICAID ==
[2021-11-18 08:59] VITALS: BP 134/61; PULSE 76
[2021-11-18] MEDS ORDERED: Sodium Chloride 0.9% 10 ML Syringe FLUSH PRN (09:08)
[2021-11-18] MEDS: Sodium Chloride 0.9% 1,000 ML IV ONE (09:11)
== END 2021-11-18 10:30 | disposition home or self-care (01) ==
LOC: CC.ED 08:52
DX: O21.9 Vomiting of pregnancy, unspecified (principal); O99.891 Other specified diseases and conditions complicating pregnancy; R10.9 Unspecified abdominal pain; Z79.899 Other long term (current) drug therapy; Z3A.10 10 weeks gestation of pregnancy
CPT/HCPCS: 96360; 99283; 99283-25; J7030

== ENCOUNTER 2021-11-21 05:00 | Emergency (ER) | payer MEDICAID ==
[2021-11-21 05:11] VITALS: BP 154/93; PULSE 63
[2021-11-21] MEDS ORDERED: Sodium Chloride 0.9% 10 ML Syringe FLUSH PRN (05:42)
[2021-11-21] MEDS: Sodium Chloride 0.9% 1,000 ML IV ONE (05:52)
[2021-11-21] MEDS: Ondansetron 4 MG/2 ML SDV IVPUSH PRN (05:53)
== END 2021-11-21 07:10 | disposition home or self-care (01) ==
LOC: CC.ED 05:00
DX: O21.9 Vomiting of pregnancy, unspecified (principal); O99.891 Other specified diseases and conditions complicating pregnancy; R10.9 Unspecified abdominal pain; O99.331 Smoking (tobacco) complicating pregnancy, first trimester; F17.210 Nicotine dependence, cigarettes, uncomplicated; K21.9 Gastro-esophageal reflux disease without esophagitis; Z79.899 Other long term (current) drug therapy; Z3A.10 10 weeks gestation of pregnancy
CPT/HCPCS: 96361; 96374; 99283-25; 99284; J2405; J7030

== ENCOUNTER 2022-01-04 04:35 | Emergency (ER) | payer MEDICAID ==
[2022-01-04] MEDS ORDERED: Sodium Chloride 0.9% 1,000 ML IV ONE (05:20)
[2022-01-04] MEDS ORDERED: Metoclopramide 10 MG/2 ML SDV IV ONE (05:22)
[2022-01-04] MEDS ORDERED: diphenhydrAMINE 50 MG/ML SDV IV ONE (05:25)
[2022-01-31 11:28] LABS: CHLORIDE,CL 103 mEq/L (98-106); SODIUM,NA 141 mEq/L (136-145)
[2022-01-31 11:29] LABS: ESTIMATED GFR 127 mL/min (>=60)
== END 2022-01-04 06:30 | disposition home or self-care (01) ==
LOC: CC.ED 04:35
DX: O21.0 Mild hyperemesis gravidarum (principal); Z3A.16 16 weeks gestation of pregnancy
CPT/HCPCS: 36415; 80053; 82150; 83690; 85025; 96361; 96374; 96375; 99284; J1200; J2765; J7030

== ENCOUNTER 2022-01-25 10:21 | Emergency (ER) | payer MEDICAID ==
[2022-01-25] MEDS ORDERED: Ondansetron 4 MG/2 ML SDV IVPUSH STA (10:31)
[2022-01-25] MEDS ORDERED: Alum Hydrox/Mag Hydrox/Simeth 30 ML, Lidocaine 2% 15 ML PO ONE ×2 (10:31)
[2022-01-25] MEDS ORDERED: Pantoprazole 40 MG Vial IVPUSH SCH (10:45)
[2022-01-25] MEDS ORDERED: Sodium Chloride 0.9% 1,000 ML IV SCH (10:45)
[2022-01-25 10:50] VITALS: BP 136/85; PULSE 76
[2022-01-25] MEDS ORDERED: Promethazine 25 MG/ML SDV ONE (10:53)
[2022-01-25] MEDS ORDERED: Promethazine 12.5 MG in Sodium Chloride 0.9% 100 ML IV ONE (11:17)
== END 2022-01-25 11:50 | disposition home or self-care (01) ==
LOC: CC.ED 10:21
DX: O21.9 Vomiting of pregnancy, unspecified (principal); O99.612 Diseases of the digestive system complicating pregnancy, second trimester; K21.9 Gastro-esophageal reflux disease without esophagitis; Z79.899 Other long term (current) drug therapy; Z3A.19 19 weeks gestation of pregnancy
CPT/HCPCS: 36415; 80053; 81001; 83690; 85025; 96361; 96365; 96375; 99283; 99284; A9270; C9113; J2405; J2550; J3490; J7030

== ENCOUNTER 2022-02-21 06:24 | Observation (INO) | payer MEDICAID ==
[2022-02-21] MEDS ORDERED: Ondansetron 4 MG/2 ML SDV IVPUSH PRN (07:05)
[2022-02-21] MEDS ORDERED: Sodium Chloride 0.9% 1,000 ML IV SCH (07:15)
[2022-02-21] MEDS ORDERED: Sodium Chloride 0.9% 1,000 ML IV ONE (08:22)
[2022-02-21 08:30] LABS: AMPHETAMINES,URINE NEGATIVE (NEGATIVE); BARBITURATES,URINE NEGATIVE (NEGATIVE); BENZODIAZEPINE,URINE NEGATIVE (NEGATIVE); MDMA (ECSTASY), URINE NEGATIVE (NEGATIVE); METHADONE,URINE NEGATIVE (NEGATIVE); METHAMPHETAMINES,URINE NEGATIVE (NEGATIVE); OPIATES,URINE NEGATIVE (NEGATIVE); OXYCODONE,URINE NEGATIVE (NEGATIVE); PHENCYCLIDINE,URINE NEGATIVE (NEGATIVE); TCA,URINE NEGATIVE (NEGATIVE)
[2022-02-21] MEDS ORDERED: Magnesium Sulfate/Water 2 GM in Premix Bag 1 BAG IV ONE (09:30)
[2022-02-21] MEDS ORDERED: Acetaminophen 325 MG Tab PO PRN (09:30)
[2022-02-21] MEDS ORDERED: Ondansetron 4 MG Tab.DIS PO PRN (09:30)
[2022-02-21] MEDS ORDERED: Prochlorperazine 10 MG Tab PO PRN (09:30)
[2022-02-21] MEDS ORDERED: Ondansetron 4 MG/2 ML SDV IV PRN (09:30)
[2022-02-21] MEDS ORDERED: Sodium Chloride 0.9% 10 ML Syringe FLUSH PRN (09:30)
[2022-02-21] MEDS ORDERED: Alum Hydrox/Mag Hydrox/Simeth 30 ML, Lidocaine 2% 15 ML PO ONE ×2 (10:00)
[2022-02-21] MEDS: Pantoprazole 40 MG Tab.CR PO SCH (10:31)
[2022-02-21] MEDS: Metoclopramide 10 MG Tab PO SCH ×2 (10:31→18:30)
[2022-02-21] MEDS: NS + KCl 20mEq/L 1,000 ML IV SCH ×2 (11:40→16:27)
[2022-02-22] MEDS: Metoclopramide 10 MG Tab PO SCH ×2 (01:35→08:51)
[2022-02-22] MEDS: Pantoprazole 40 MG Tab.CR PO SCH (07:27)
[2022-02-22] MEDS ORDERED: Alum Hydrox/Mag Hydrox/Simeth 30 ML, Lidocaine 2% 15 ML PO ONE ×2 (08:08)
[2022-02-22 08:31] VITALS: BP 132/86; PULSE 67
== END 2022-02-22 10:56 | disposition home or self-care (01) ==
LOC: CC.ED 06:24 → UNDOADMOB 08:45 → CC.ED 08:45 → CC.MS 08:45
PROVIDERS: ADMIT Nurse Practitioner Family; ATTEND Nurse Practitioner Family
DX: O21.0 Mild hyperemesis gravidarum (principal); O99.282 Endocrine, nutritional and metabolic diseases complicating pregnancy, second trimester; E86.0 Dehydration; E87.6 Hypokalemia; E83.42 Hypomagnesemia; E87.1 Hypo-osmolality and hyponatremia; O99.342 Other mental disorders complicating pregnancy, second trimester; F41.9 Anxiety disorder, unspecified; K21.9 Gastro-esophageal reflux disease without esophagitis; F17.210 Nicotine dependence, cigarettes, uncomplicated; Z3A.24 24 weeks gestation of pregnancy; Z79.899 Other long term (current) drug therapy
CPT/HCPCS: 36415; 80048; 80053; 80305-QW; 81001; 83735; 85025; 99217; 99220; A9270-GY; J2405; J3475; J3480; J7030

== ENCOUNTER 2022-03-11 20:06 | Emergency (ER) | payer MEDICAID ==
[2022-03-11] MEDS ORDERED: Sodium Chloride 0.9% 1,000 ML IV ONE (20:08)
[2022-03-11 20:09] VITALS: BP 156/79; PULSE 95
[2022-03-11] MEDS ORDERED: Ondansetron 4 MG/2 ML SDV IVPUSH PRN (20:09)
[2022-03-11] MEDS ORDERED: Take Home: Ondansetron 4 MG Tab.DIS, 2 Tab Pack PO ONE (22:06)
== END 2022-03-11 22:50 | disposition home or self-care (01) ==
LOC: CC.ED 20:06
DX: O21.1 Hyperemesis gravidarum with metabolic disturbance (principal); E83.42 Hypomagnesemia; Z3A.26 26 weeks gestation of pregnancy
CPT/HCPCS: 36415; 80053; 83735; 85025; 96361; 96374; 99284; 99284-25; A9270-GY; J2405; J7030

== ENCOUNTER 2022-03-25 22:17 | Emergency (ER) | payer MEDICAID ==
[2022-03-25] MEDS ORDERED: Sodium Chloride 0.9% 1,000 ML IV ONE (22:31)
[2022-03-25] MEDS ORDERED: Metoclopramide 10 MG/2 ML SDV IVPUSH ONE (22:42)
[2022-03-25] MEDS ORDERED: Dextrose 5%-0.9% NaCl 1,000 ML IV SCH (22:45)
[2022-03-25] MEDS ORDERED: Famotidine 20 MG/2 ML SDV IVPUSH ONE (22:51)
[2022-03-25 22:52] VITALS: BP 130/90; PULSE 94
== END 2022-03-26 00:11 | disposition home or self-care (01) ==
LOC: CC.ED 22:17
DX: O21.0 Mild hyperemesis gravidarum (principal); K21.9 Gastro-esophageal reflux disease without esophagitis; Z79.899 Other long term (current) drug therapy
CPT/HCPCS: 96361; 96374; 96375; 99283-25; 99284; J2765; J3490; J7042

== ENCOUNTER 2022-03-27 05:16 | Emergency (ER) | payer MEDICAID ==
[2022-03-27] MEDS ORDERED: Sodium Chloride 0.9% 10 ML Syringe FLUSH PRN (05:35)
[2022-03-27] MEDS: Sodium Chloride 0.9% 1,000 ML IV ONE (05:45)
[2022-03-27] MEDS: Ondansetron 4 MG/2 ML SDV IVPUSH STA (05:46)
[2022-03-27 06:09] VITALS: BP 141/86; PULSE 78
== END 2022-03-27 07:00 | disposition home or self-care (01) ==
LOC: CC.ED 05:16
DX: O21.0 Mild hyperemesis gravidarum (principal); Z3A.28 28 weeks gestation of pregnancy
CPT/HCPCS: 96361; 96374; 99283-25; J2405; J7030

== ENCOUNTER 2022-04-18 12:27 | Emergency (ER) | payer MEDICAID ==
[2022-04-18] MEDS ORDERED: Sodium Chloride 0.9% 1,000 ML IV ONE (13:01)
[2022-04-18] MEDS ORDERED: Ondansetron 4 MG/2 ML SDV IVPUSH PRN (13:01)
[2022-04-18 13:24] LABS: CHLORIDE,CL 102 mEq/L (98-106); SODIUM,NA 139 mEq/L (136-145)
[2022-04-18 13:34] LABS: ESTIMATED GFR 133 mL/min (>=60)
[2022-04-18] MEDS: Acetaminophen 325 MG Tab PO ONE ×2 (13:35→18:30)
[2022-04-18] MEDS ORDERED: Prochlorperazine 10 MG/2 ML SDV IV ONE (14:26)
[2022-04-18] MEDS ORDERED: diphenhydrAMINE 50 MG/ML SDV IVPUSH ONE (14:55)
[2022-04-18 17:22] VITALS: BP 128/62; PULSE 78
== END 2022-04-18 16:10 | disposition home or self-care (01) ==
LOC: CC.ED 12:27
DX: O21.0 Mild hyperemesis gravidarum (principal); O99.613 Diseases of the digestive system complicating pregnancy, third trimester; K21.9 Gastro-esophageal reflux disease without esophagitis; Z79.899 Other long term (current) drug therapy; Z3A.31 31 weeks gestation of pregnancy
CPT/HCPCS: 36415; 80048; 96361; 96374; 96375; 99284; J0780; J1200; J2405; J7030; A9270-GY

== ENCOUNTER 2022-04-29 18:00 | Emergency (ER) | payer MEDICAID ==
[2022-04-29] MEDS ORDERED: Sodium Chloride 0.9% 1,000 ML IV SCH (18:30)
[2022-04-29] MEDS ORDERED: Famotidine 20 MG/2 ML SDV IVPUSH ONE (18:48)
[2022-04-29] MEDS ORDERED: Metoclopramide 10 MG/2 ML SDV IVPUSH ONE (18:49)
[2022-04-29 18:52] VITALS: BP 135/79; PULSE 78
== END 2022-04-29 19:35 | disposition home or self-care (01) ==
LOC: CC.ED 18:00
DX: O21.2 Late vomiting of pregnancy (principal); O99.613 Diseases of the digestive system complicating pregnancy, third trimester; K21.9 Gastro-esophageal reflux disease without esophagitis; O99.333 Smoking (tobacco) complicating pregnancy, third trimester; F17.210 Nicotine dependence, cigarettes, uncomplicated; Z79.899 Other long term (current) drug therapy; Z3A.33 33 weeks gestation of pregnancy
CPT/HCPCS: 36415; 80053; 85025; 96361; 96374; 96375; 99283; 99284-25; J2765; J3490; J7030

== ENCOUNTER 2022-05-03 03:43 | Emergency (ER) | payer MEDICAID ==
[2022-05-03 03:50] VITALS: BP 133/77; PULSE 93
[2022-05-03] MEDS ORDERED: Acetaminophen 500 MG Tab PO ONE (04:11)
[2022-05-03 04:56] LABS: METHAMPHETAMINES,URINE NEGATIVE (NEGATIVE)
[2022-05-03 04:57] LABS: AMPHETAMINES,URINE NEGATIVE (NEGATIVE); BARBITURATES,URINE NEGATIVE (NEGATIVE); BENZODIAZEPINE,URINE NEGATIVE (NEGATIVE); MDMA (ECSTASY), URINE NEGATIVE (NEGATIVE); METHADONE,URINE NEGATIVE (NEGATIVE); OPIATES,URINE NEGATIVE (NEGATIVE); OXYCODONE,URINE NEGATIVE (NEGATIVE); PHENCYCLIDINE,URINE NEGATIVE (NEGATIVE); TCA,URINE NEGATIVE (NEGATIVE)
[2022-05-03] MEDS ORDERED: Sodium Chloride 0.9% 1,000 ML IV ONE (05:38)
[2022-05-03] MEDS ORDERED: Ondansetron 4 MG/2 ML SDV IVPUSH ONE (05:42)
== END 2022-05-03 06:45 | disposition home or self-care (01) ==
LOC: CC.ED 03:43
DX: O99.891 Other specified diseases and conditions complicating pregnancy (principal); R10.9 Unspecified abdominal pain; O99.333 Smoking (tobacco) complicating pregnancy, third trimester; F17.210 Nicotine dependence, cigarettes, uncomplicated; O99.613 Diseases of the digestive system complicating pregnancy, third trimester; K21.9 Gastro-esophageal reflux disease without esophagitis; Z79.899 Other long term (current) drug therapy; Z3A.33 33 weeks gestation of pregnancy
CPT/HCPCS: 36415; 80053; 80305; 81001; 85025; 96361; 96374; 99284; A9270; J2405; J7030

== ENCOUNTER 2022-05-20 12:49 | Emergency (ER) | payer MEDICAID ==
[2022-05-20] MEDS: Sodium Chloride 0.9% 500 ML IV SCH (13:25)
[2022-05-20] MEDS: Ondansetron 4 MG/2 ML SDV IVPUSH PRN (13:30)
[2022-05-20] MEDS: Ampicillin 2 GM in Sodium Chloride 0.9% 50 ML IV ONE (14:00)
[2022-05-20 14:01] LABS: PTT,PARTIAL THROMBOPLSTIN TIME 24.6 SEC (20.0-30.0)
[2022-05-20 14:03] LABS: CHLORIDE,CL 102 mEq/L (98-106); ESTIMATED GFR 133 mL/min (>=60); SODIUM,NA 137 mEq/L (136-145)
[2022-05-20] MEDS: Morphine 2 MG/ML SYRINGE IVPUSH STA (14:47)
[2022-05-20] MEDS: SODIUM CHLORIDE 0.9% IV ONE (15:09)
[2022-05-20] MEDS: OXYTOCIN IV ONE (15:09)
[2022-05-20] MEDS: Ketorolac 30 MG/ML SDV IVPUSH SCH (16:12)
[2022-05-20] MEDS: Ondansetron 4 MG/2 ML SDV IVPUSH STA (16:28)
[2022-05-20] MEDS: Morphine 2 MG/ML SYRINGE ONE (17:25)
[2022-05-20] MEDS: Metoclopramide 10 MG/2 ML SDV IVPUSH ONE (17:52)
[2022-05-20 18:27] VITALS: BP 141/85; PULSE 102
== END 2022-05-20 18:15 | disposition critical access hospital (66) ==
LOC: CC.ACU 12:49 → CC.ED 12:49 → EDSTATUS 13:09 → CC.ED 18:15
DX: O75.9 Complication of labor and delivery, unspecified (principal); Z3A.36 36 weeks gestation of pregnancy; Z37.9 Outcome of delivery, unspecified
CPT/HCPCS: 36415; 80053; 85025; 85610; 85730; 86850; 86900; 86901; 96365; 96367; 96375; 96376; 99285-25; J0290; J1885; J2270; J2405; J2590; J2765; J7040

== ENCOUNTER 2023-05-28 06:20 | Emergency (ER) | payer MEDICAID ==
[2023-05-28 06:55] LABS: BASOPHILS ABSOLUTE AUTO 0.03 10^3/uL (0.00-0.50); BASOPHILS PERCENT AUTO 0.2 % (0-1); EOSINOPHILS ABSOLUTE AUTO 0.28 10^3/uL (0.00-1.50); EOSINOPHILS PERCENT AUTO 2.3 % (0-6); HEMATOCRIT 44.2 % (37.0-47.0); IMMATURE GRAN ABSOLUTE AUTO 0.02 10^3/uL (0.00-0.49); IMMATURE GRAN PERCENT AUTO 0.2 % (0.0-4.9); LYMPHOCYTES ABSOLUTE AUTO 2.39 10^3/uL (0.60-5.00); LYMPHOCYTES PERCENT AUTO 19.4 % (24-44); MEAN CORPUSCULAR HEMOGLOBIN 31.2 pg (27.0-32.0); MEAN CORPUSCULAR HGB CONC 33.9 g/dL (32.0-36.0); MEAN CORPUSCULAR VOLUME 91.9 fL (83.0-97.0); MONOCYTES ABSOLUTE AUTO 0.63 10^3/uL (0.00-1.50); MONOCYTES PERCENT AUTO 5.1 % (0-10); NEUTROPHILS ABSOLUTE AUTO 8.94 x10^3/uL (1.80-8.00); NEUTROPHILS PERCENT AUTO 72.8 % (41-71); PLATELET COUNT,PLT 296 10^3/uL (150-400); RED BLOOD CELL COUNT 4.81 x10^6/uL (4.00-5.50); WHITE BLOOD CELL COUNT,WBC 12.3 10^3/uL (4.0-11.0)
[2023-05-28] MEDS: Sodium Chloride 0.9% 1,000 ML IV ONE (07:36)
[2023-05-28] MEDS: Ketorolac 30 MG/ML SDV IVPUSH ONE (07:37)
[2023-05-28] MEDS: Ondansetron 4 MG/2 ML SDV IVPUSH ONE (07:37)
[2023-05-28] MEDS: Famotidine 20 MG/2 ML SDV IVPUSH ONE (07:37)
[2023-05-28 07:41] LABS: ALANINE AMINOTRANSFERASE,ALT 11 U/L (12-78); ALKALINE PHOSPHATASE 74 U/L (46-116); ASPARTATE AMNIOTRANSFERASE,AST 17 U/L (15-37); BILIRUBIN TOTAL 0.4 mg/dL (0.0-1.0); BLOOD UREA NITROGEN,BUN 12 mg/dL (7-18); CALCIUM 8.6 mg/dL (8.4-10.1); CARBON DIOXIDE,CO2 27 mmol/L (21-32); CHLORIDE,CL 105 mEq/L (98-106); CREATININE 0.7 mg/dL (0.6-1.0); GLUCOSE RANDOM 106 mg/dL (75-99); POTASSIUM,K 4.2 mEq/L (3.5-5.0); PROTEIN TOTAL,TP 7.1 g/dL (6.4-8.2); SODIUM,NA 140 mEq/L (136-145)
[2023-05-28 07:51] LABS: LACTIC ACID 1.5 mmol/L (0.4-2.0)
[2023-05-28 08:10] LABS: ALBUMIN 3.8 g/dL (3.4-5.0); ESTIMATED GFR 121 mL/min (>=60); LIPASE 26 U/L (16-77); MAGNESIUM 2.2 mg/dL (1.8-2.4)
[2023-05-28] MEDS: Morphine 2 MG/ML SYRINGE IVPUSH ONE (08:32)
[2023-05-28] MEDS: Iopamidol 755 Mg/ML 100 ML Bottle IVPUSH ONE (08:37)
[2023-05-28 08:59] LABS: APPEARANCE,URINE SLIGHTLY CLOUDY (CLEAR); BILIRUBIN,URINE NEGATIVE (NEGATIVE); COLOR,URINE YELLOW (YELLOW); GLUCOSE,URINE NEGATIVE (NEGATIVE); KETONES,URINE NEGATIVE (NEGATIVE); LEUKOCYTE ESTERASE,URINE NEGATIVE (NEGATIVE); NITRITE,URINE NEGATIVE (NEGATIVE); OCCULT BLOOD,URINE NEGATIVE (NEGATIVE); PH,URINE 7.5 (4.5-8.0); PROTEIN,URINE NEGATIVE (NEGATIVE); UROBILINOGEN,URINE 0.2 EU/dL (0.2-1.0)
[2023-05-28] MEDS: Metoclopramide 10 MG/2 ML SDV IVPUSH ONE (09:11)
[2023-05-28 09:13] LABS: AMORPHOUS SEDIMENT,URINE FEW /HPF (NOT SEEN); EPITHELIAL CELLS,URINE OCCASIONAL /HPF (NOT SEEN); RBC,URINE NOT SEEN /HPF (0-5); WBC,URINE NOT SEEN /HPF (0-5)
[2023-05-28] MEDS: Haloperidol Lactate 5 MG/ML SDV IVPUSH ONE (09:31)
[2023-05-28 09:52] VITALS: BP 139/76; PULSE 57
== END 2023-05-28 12:20 | disposition home or self-care (01) ==
LOC: CC.ED 06:20
DX: R11.10 Vomiting, unspecified (principal); K21.9 Gastro-esophageal reflux disease without esophagitis; Z79.899 Other long term (current) drug therapy
CPT/HCPCS: 36415; 74177; 80053; 81001; 83605; 83690; 83735; 84484; 85025; 96361; 96374; 96375; 99284; J1630; J1885; J2270; J2405; J2765; J3490; J7030; Q9967

== ENCOUNTER 2023-06-13 12:17 | Day surgery (SDC) | payer MEDICAID ==
[~2023-06-13 12:17] MED LIST changes: +Lactated Ringers 1,000 ML IV SCH; -Promethazine 25 MG/ML SDV ONE
[2023-06-13] MEDS ORDERED: Midazolam 1 MG/ML 2 ML SDV ONE (12:50)
[2023-06-13] MEDS ORDERED: Ketamine 200 MG/20 ML MDV ONE (12:50)
[2023-06-13] MEDS ORDERED: Lidocaine 2% 20 ML MDV ONE (12:50)
[2023-06-13] MEDS ORDERED: Propofol 200 MG/20 ML SDV ONE (12:50)
[2023-06-13] MEDS ORDERED: fentaNYL 50 MCG/ML SDV ONE (12:50)
[2023-06-13 13:57] VITALS: BP 103/62; PULSE 64
== END 2023-06-13 14:04 | disposition home or self-care (01) ==
LOC: CC.SDS 12:17
PROVIDERS: ATTEND Family Medicine
DX: K29.50 Unspecified chronic gastritis without bleeding (principal); K25.9 Gastric ulcer, unspecified as acute or chronic, without hemorrhage or perforation; F41.9 Anxiety disorder, unspecified; Z79.899 Other long term (current) drug therapy
CPT/HCPCS: 00731; 36415; 84703; 87081; J2250; J2704; J3010; J3490

== ENCOUNTER 2024-01-02 02:48 | Emergency (ER) | payer MEDICAID ==
[2024-01-02 02:58] VITALS: BP 113/76; PULSE 85
[2024-01-02] MEDS: Ketorolac 60 MG/2 ML SDV IM ONE ×2 (03:35)
[2024-01-02] MEDS: Orphenadrine 60 MG/2 ML Inj IM ONE (03:45)
[2024-01-02 03:50] LABS: APPEARANCE,URINE CLEAR (CLEAR); BILIRUBIN,URINE NEGATIVE (NEGATIVE); COLOR,URINE YELLOW (YELLOW); GLUCOSE,URINE NEGATIVE (NEGATIVE); KETONES,URINE NEGATIVE (NEGATIVE); LEUKOCYTE ESTERASE,URINE NEGATIVE (NEGATIVE); NITRITE,URINE NEGATIVE (NEGATIVE); OCCULT BLOOD,URINE LARGE (NEGATIVE); PROTEIN,URINE NEGATIVE (NEGATIVE); UROBILINOGEN,URINE 0.2 EU/dL (0.2-1.0)
[2024-01-02 03:57] LABS: EPITHELIAL CELLS,URINE OCCASIONAL /HPF (NOT SEEN); WBC,URINE 0-5 /HPF (0-5)
[2024-01-02] MEDS: HYDROmorphone 1 MG/ML Syringe SUBCUT ONE (04:00)
[2024-01-02] MEDS: Take Home: Acetaminophen/HYDROcodone 325-5 MG, 2 Tab Pack PO ONE (05:02)
== END 2024-01-02 05:10 | disposition home or self-care (01) ==
LOC: CC.ED 02:48
DX: M54.50 Low back pain, unspecified (principal); K21.9 Gastro-esophageal reflux disease without esophagitis; F17.210 Nicotine dependence, cigarettes, uncomplicated; Z79.899 Other long term (current) drug therapy
CPT/HCPCS: 72131; 81001; 81025; 96372; 99284; A9270; J1885; J2360

== ENCOUNTER 2024-03-04 19:19 | Emergency (ER) | payer MEDICAID ==
[2024-03-04 19:40] LABS: BASOPHILS ABSOLUTE AUTO 0.02 10^3/uL (0.00-0.50); BASOPHILS PERCENT AUTO 0.2 % (0-1); HEMATOCRIT 44.9 % (37.0-47.0); HEMOGLOBIN 15.4 g/dL (12.0-16.0); IMMATURE GRAN ABSOLUTE AUTO 0.01 10^3/uL (0.00-0.49); IMMATURE GRAN PERCENT AUTO 0.1 % (0.0-4.9); LYMPHOCYTES ABSOLUTE AUTO 0.72 10^3/uL (0.60-5.00); LYMPHOCYTES PERCENT AUTO 6.6 % (24-44); MEAN CORPUSCULAR HEMOGLOBIN 31.4 pg (27.0-32.0); MEAN CORPUSCULAR HGB CONC 34.3 g/dL (32.0-36.0); MEAN CORPUSCULAR VOLUME 91.6 fL (83.0-97.0); MONOCYTES ABSOLUTE AUTO 0.26 10^3/uL (0.00-1.50); MONOCYTES PERCENT AUTO 2.4 % (0-10); NEUTROPHILS ABSOLUTE AUTO 9.97 x10^3/uL (1.80-8.00); NEUTROPHILS PERCENT AUTO 90.7 % (41-71); PLATELET COUNT,PLT 240 10^3/uL (150-400)
[2024-03-04] MEDS: Alum Hydrox/Mag Hydrox/Simeth 30 ML, Lidocaine 2% 15 ML PO ONE (19:51)
[2024-03-04 19:53] LABS: ALANINE AMINOTRANSFERASE,ALT 26 U/L (12-78); ALBUMIN 4.4 g/dL (3.4-5.0); ALKALINE PHOSPHATASE 80 U/L (46-116); ASPARTATE AMNIOTRANSFERASE,AST 19 U/L (15-37); BILIRUBIN TOTAL 0.7 mg/dL (0.0-1.0); BLOOD UREA NITROGEN,BUN 15 mg/dL (7-18); CALCIUM 9.7 mg/dL (8.4-10.1); CARBON DIOXIDE,CO2 29 mmol/L (21-32); CHLORIDE,CL 99 mEq/L (98-106); CREATININE 0.9 mg/dL (0.6-1.0); ESTIMATED GFR 89 mL/min (>=60); GLUCOSE RANDOM 123 mg/dL (75-99); MAGNESIUM 1.6 mg/dL (1.8-2.4); PROTEIN TOTAL,TP 8.2 g/dL (6.4-8.2); SODIUM,NA 139 mEq/L (136-145)
[2024-03-04 19:58] VITALS: BP 135/79; PULSE 124
[2024-03-04 20:02] LABS: APPEARANCE,URINE CLEAR (CLEAR); BILIRUBIN,URINE NEGATIVE (NEGATIVE); COLOR,URINE YELLOW (YELLOW); GLUCOSE,URINE NEGATIVE (NEGATIVE); KETONES,URINE 15 mg/dL (NEGATIVE); LEUKOCYTE ESTERASE,URINE NEGATIVE (NEGATIVE); NITRITE,URINE NEGATIVE (NEGATIVE); OCCULT BLOOD,URINE TRACE-INTACT (NEGATIVE); PROTEIN,URINE 100 mg/dL (NEGATIVE); UROBILINOGEN,URINE 0.2 EU/dL (0.2-1.0)
[2024-03-04 20:10] LABS: RBC,URINE 0-5 /HPF (0-5); WBC,URINE 0-5 /HPF (0-5)
[2024-03-04 20:11] LABS: BACTERIA,URINE OCCASIONAL /HPF (NOT SEEN); SQUAMOUS EPITHELIAL CELLS,UR MODERATE /HPF (NOT SEEN)
== END 2024-03-04 20:35 | disposition home or self-care (01) ==
LOC: CC.ED 19:19
DX: R10.13 Epigastric pain (principal); R11.2 Nausea with vomiting, unspecified; R80.9 Proteinuria, unspecified; K21.9 Gastro-esophageal reflux disease without esophagitis; Z79.899 Other long term (current) drug therapy
CPT/HCPCS: 36415; 80053; 81001; 83735; 85025; 99284; A9270-GY

== ENCOUNTER 2024-10-03 10:42 | Emergency (ER) | payer SELFPAY ==
[2024-10-03 10:49] VITALS: BP 114/81; PULSE 67
[2024-10-03] MEDS: Ondansetron 4 MG/2 ML SDV IVPUSH STA ×2 (11:26→12:43)
[2024-10-03 11:28] LABS: BASOPHILS ABSOLUTE AUTO 0.03 10^3/uL (0.00-0.50); BASOPHILS PERCENT AUTO 0.4 % (0-1); EOSINOPHILS ABSOLUTE AUTO 0.18 10^3/uL (0.00-1.50); EOSINOPHILS PERCENT AUTO 2.5 % (0-6); IMMATURE GRAN ABSOLUTE AUTO 0.02 10^3/uL (0.00-0.49); IMMATURE GRAN PERCENT AUTO 0.3 % (0.0-4.9); LYMPHOCYTES ABSOLUTE AUTO 1.59 10^3/uL (0.60-5.00); LYMPHOCYTES PERCENT AUTO 21.7 % (24-44); MONOCYTES ABSOLUTE AUTO 0.40 10^3/uL (0.00-1.50); MONOCYTES PERCENT AUTO 5.5 % (0-10); NEUTROPHILS ABSOLUTE AUTO 5.10 x10^3/uL (1.80-8.00); NEUTROPHILS PERCENT AUTO 69.6 % (41-71); PLATELET COUNT,PLT 229 10^3/uL (150-400); RED BLOOD CELL COUNT 4.17 x10^6/uL (4.00-5.50); WHITE BLOOD CELL COUNT,WBC 7.3 10^3/uL (4.0-11.0)
[2024-10-03 11:43] LABS: ALANINE AMINOTRANSFERASE,ALT 26 U/L (12-78); APPEARANCE,URINE CLEAR (CLEAR); ASPARTATE AMNIOTRANSFERASE,AST 21 U/L (15-37); BILIRUBIN TOTAL 0.6 mg/dL (0.0-1.0); BLOOD UREA NITROGEN,BUN 7 mg/dL (7-18); CARBON DIOXIDE,CO2 24 mmol/L (21-32); CHLORIDE,CL 107 mEq/L (98-106); CREATININE 0.7 mg/dL (0.6-1.0); EST CRCL DRUG DOSING (CG) 129.39 mL/min; GLUCOSE RANDOM 89 mg/dL (75-99); GLUCOSE,URINE NEGATIVE (NEGATIVE); OCCULT BLOOD,URINE SMALL (NEGATIVE); POTASSIUM,K 3.8 mEq/L (3.5-5.0); PROTEIN TOTAL,TP 6.9 g/dL (6.4-8.2); SODIUM,NA 144 mEq/L (136-145)
[2024-10-03 11:44] LABS: ESTIMATED GFR 121 mL/min (>=60)
[2024-10-03 11:53] LABS: SQUAMOUS EPITHELIAL CELLS,UR MANY /HPF (NOT SEEN)
[2024-10-03] MEDS: Ondansetron 4 MG/2 ML SDV ONE (12:47)
[2024-10-03] MEDS: Take Home: Acetaminophen/HYDROcodone 325-5 MG, 2 Tab Pack PO ONE (13:58)
[2024-10-03] MEDS: Take Home: Ondansetron 4 MG Tab.DIS, 2 Tab Pack PO ONE (13:58)
== END 2024-10-03 13:40 | disposition home or self-care (01) ==
LOC: CC.ED 10:42
DX: N13.30 Unspecified hydronephrosis (principal); K21.9 Gastro-esophageal reflux disease without esophagitis; F17.210 Nicotine dependence, cigarettes, uncomplicated; Z79.899 Other long term (current) drug therapy
CPT/HCPCS: 36415; 74176; 80053; 81001; 81025; 83690; 83735; 85025; 86140; 96361; 96374; 96375; 96376; 99284; A9270; J2405; J7030; J1171

== ENCOUNTER 2025-01-06 04:57 | Emergency (ER) | payer SELFPAY ==
[2025-01-06 05:07] VITALS: BP 134/68; PULSE 87
[2025-01-06] MEDS: Ketorolac 30 MG/ML SDV IM STA (05:34)
== END 2025-01-06 06:19 | disposition home or self-care (01) ==
LOC: CC.ED 04:57
DX: K04.7 Periapical abscess without sinus (principal); K21.9 Gastro-esophageal reflux disease without esophagitis; Z79.899 Other long term (current) drug therapy
CPT/HCPCS: 96372; 99282; J1885